=== PATIENT | male | born 1960 | race Caucasian/White ===

== ENCOUNTER 2017-09-18 11:22 | Day surgery (SDC) | payer BC, MEDICARE ==
[2017-09-13 12:09] VITALS: BMI 77.9
[~2017-09-18 11:22] MED LIST: LACTATED RINGERS 1,000 ML IV SCH
[2017-09-18 12:19] VITALS: RESP 16; TEMP 98.5
[2017-09-18] MEDS ORDERED: LIDOCAINE 1% 20 ML VIAL (10MG/ML) FOR IV START INTRADERMA ONE (12:45)
[2017-09-18] MEDS ORDERED: LIDOCAINE 1% INJ 10MG/ML (20 ML MDV) ONE (12:49)
[2017-09-18] MEDS ORDERED: PROPOFOL 10 MG/ML 20 ML VIAL IV ONE (12:49)
--- NOTE | 2017-09-18 12:52 | P.GSHP ---
History of Present Illness H&P Date: 09/18/17 Chief Complaint: Colon cancer screening Patient here today for colonoscopy. He is not aware of having 1 previously. His face sheet said that he had a history of colon polyps but he is unaware of that. No family history of colon cancer or polyps. No bowel related complaints. Past Medical History Past Medical History: Hypertension, Sleep Apnea/CPAP/BIPAP Additional Past Medical History / Comment(s): USES C-PAP MACHINE History of Any Multi-Drug Resistant Organisms: None Reported Past Surgical History: Hernia Repair Past Anesthesia/Blood Transfusion Reactions: Motion Sickness Smoking Status: Never smoker - Past Family History Mother Family Medical History: No Reported History Medications and Allergies Home Medications Medication Instructions Recorded Confirmed Type Aspirin [Adult Low Dose Aspirin EC] 81 mg PO DAILY 09/13/17 09/18/17 History Ergocalciferol (Vitamin D2) 50,000 unit PO MOWEFR 09/13/17 09/18/17 History [Vitamin D2] Hydrochlorothiazide 25 mg PO DAILY 09/13/17 09/18/17 History Lisinopril 40 mg PO DAILY 09/13/17 09/18/17 History Allergies Allergy/AdvReac Type Severity Reaction Status Date / Time No Known Allergies Allergy Verified 09/18/17 12:20 Surgical - Exam Vital Signs Temp Pulse Resp BP Pulse Ox 98.5 F 78 16 168/95 97 09/18/17 12:18 09/18/17 12:18 09/18/17 12:18 09/18/17 12:18 09/18/17 12:18 Physical exam: General: Well-developed, well-nourished HEENT: Normocephalic, sclerae nonicteric Abdomen: Nontender, nondistended Extremities: No edema Neuro: Alert and oriented Assessment and Plan (1) Screening for colon cancer Narrative/Plan: Will proceed with colonoscopy at this time. Current Visit: Yes Status: Acute Code(s): Z12.11 - ENCOUNTER FOR SCREENING FOR MALIGNANT NEOPLASM OF COLON SNOMED Code(s): 457722658
--- NOTE | 2017-09-18 13:05 | P.PCN ---
Date of Procedure: 09/18/17 Procedure(s) Performed: PREOPERATIVE DIAGNOSIS: Colon cancer screening POSTOPERATIVE DIAGNOSIS: Cecal polyp, diverticulosis PROCEDURE: Colonoscopy with biopsy ANESTHESIA: MAC SURGEON: Tommy Clarke M.D. SPECIMENS: Cecal polyp ENDOSCOPIC PROCEDURE: The patient was placed on the endoscopy table in the left decubitus position. The Olympus colonoscope was inserted into the anus and passed under direct visualization to the base of the cecum. The appendiceal orifice was visualized. From that point the scope was slowly withdrawn inspecting all surfaces carefully. On the cecal valve there was a small polyp removed using the cold biopsy forceps. The remainder of the cecum, ascending, transverse, descending, sigmoid and rectum appeared normal. There was mild diverticulosis noted in the sigmoid colon. Digital rectal examination was normal. The patient was taken to the recovery room in stable condition per anesthesia guidelines. RECOMMENDATIONS: Await biopsy results. Increase fiber.
[2017-09-18] MEDS ORDERED: IV FLUID CONTINUATION 1,000 ML IV ONE (13:10)
[2017-09-18 13:43] VITALS: BP 123/78; PULSE 81
== END 2017-09-18 13:44 | disposition home or self-care (01) ==
LOC: ORWHC2ENDO 11:22
PROVIDERS: ATTEND Surgery
DX: Z12.11 Encounter for screening for malignant neoplasm of colon (principal); K63.5 Polyp of colon; K57.30 Diverticulosis of large intestine without perforation or abscess without bleeding; Z86.010 Personal history of colon polyps; I10 Essential (primary) hypertension; G47.30 Sleep apnea, unspecified; Z99.89 Dependence on other enabling machines and devices; Z79.82 Long term (current) use of aspirin; Z79.899 Other long term (current) drug therapy
CPT/HCPCS: 45380; 88305

== ENCOUNTER → 2018-10-08 | Outpatient (CLI) | payer BC, MEDICARE ==
[2018-10-08 18:01] VITALS: BP 174/73; PULSE 74; RESP 16; TEMP 98.4; BMI 63.9
--- NOTE | 2018-10-08 18:15 | P.HPBAR ---
Bariatric H&P - History & Physicial H&P Date: 10/08/18 History & Physicial: Visit/CC: [facility]t referral for ry Patient initial contact: Initial weight: 196.405 kg Initial weight in pounds: 433.00 Height: 5 ft 9 in Initial BMI: 63.9 Last weight: Current weight: 196.405 kg Current weight in pounds: 433.00 Current BMI: 63.9 [place] body weight (based on NIH guidelines): 72.575 kg Excess body weight loss: 0.0% The patient is a 58 year-old M who presents for Bariatric Assessment. HPI: He comes in with moderate weight. Patient was looking into the sleeve gastrectomy. No reports of GERD. No stomach or esophageal cancer. His father accompanies him and has colon cancer. His last colonoscopy within in a year. No knee pain. He reports left hip pain. No lower back pain. No ankle pain. He has sleep apnea. His sisters and brothers have troubles with their weight. Highest weight is 440 pounds. He does not see a supervisor cured meats. No stress test. His brother had a pulmonary embolism. No previous smoking. Overall he is very healthy without diabetes. He has not seen an orthopedic surgeon. All options reviewed. Past Medical History Past Medical History: Hypertension, Sleep Apnea/CPAP/BIPAP Additional Past Medical History / Comment(s): USES C-PAP MACHINE History of Any Multi-Drug Resistant Organisms: None Reported Past Surgical History: Hernia Repair Past Anesthesia/Blood Transfusion Reactions: Motion Sickness Past Psychological History: No Psychological Hx Reported Smoking Status: Never smoker Past Alcohol Use History: Occasional Past Drug Use History: None Reported - Past Family History Mother Family Medical History: No Reported History Surgical - Exam Vital Signs Temp Pulse Resp BP 98.4 F 74 16 174/73 10/08/18 17:55 10/08/18 17:55 10/08/18 17:55 10/08/18 17:55 Bariatric Checklist Checklist: Plan: Checklist: EGD: 1. Hiatal hernia: 2. H. Pylori: HgbA1c: Vitamin D: Smoking: Never smoker Primary care physician referral: Dr. Elmo Garza Psychiatry clearance: Cardiology clearance: Sleep study: Diet journal: VTE risk score: VTE risk level: Rehab needs at discharge:
== END ==
LOC: BARWHC3 16:02
PROVIDERS: ATTEND Surgery Plastic and Reconstructive Surgery
DX: C18.9 Malignant neoplasm of colon, unspecified (principal); R63.5 Abnormal weight gain
CPT/HCPCS: 99211

== ENCOUNTER → 2018-11-04 | Outpatient (CLI) | payer MEDICARE ==
[2018-11-04 14:34] LABS: HCT 43.4 % (39.0-53.0); MCH 28.7 pg (25.0-35.0); MCHC 32.2 g/dL (31.0-37.0); MCV 89.1 fL (80.0-100.0); Mean Platelet Volume 7.4; Platelet Count 304 k/uL (150-450); RBC 4.87 m/uL (4.30-5.90); RDW 13.9 % (11.5-15.5); WBC 11.6 k/uL (3.8-10.6)
[2018-11-04 19:01] LABS: Albumin 4.3 g/dL (3.80-4.90); Albumin/Globulin Ratio 1.95 (1.60-3.17); Anion Gap 11.4 mmol/L (4.00-12.00); Calcium 9.6 mg/dL (8.7-10.3); Carbon Dioxide 23.6 mmol/L (21.6-31.8); Globulin 2.2 g/dL (1.6-3.3); LDL Cholesterol,Calculated 74.4 mg/dL (0.0-131.0); Potassium 4.7 mmol/L (3.5-5.5); Total Bilirubin 0.2 mg/dL (0.2-1.2); Total Protein 6.5 g/dL (6.2-8.2); VLDL Calculation 35.6 mg/dL (5.00-40.00)
[2018-11-04 19:03] LABS: Iron Saturation 13.87 (15.00-50.00)
[2018-11-04 19:11] LABS: Vitamin D 25 Hydroxy 79.2 ng/mL (30.0-100.0)
[2018-11-04 19:15] LABS: Folate, Serum 17.8 ng/mL
[2018-11-04 20:59] LABS: Hemoglobin A1C 6.1 % (4.0-6.0)
== END | disposition home or self-care (01) ==
LOC: LABWHC1 13:54
PROVIDERS: ATTEND Surgery Plastic and Reconstructive Surgery
DX: Z01.818 Encounter for other preprocedural examination (principal); E66.01 Morbid (severe) obesity due to excess calories; E88.81 Metabolic syndrome and other insulin resistance; E44.0 Moderate protein-calorie malnutrition; I11.9 Hypertensive heart disease without heart failure; G47.30 Sleep apnea, unspecified; Z68.43 Body mass index [BMI] 50.0-59.9, adult; Z01.812 Encounter for preprocedural laboratory examination
CPT/HCPCS: 36415; 80053; 80061; 82306; 82607; 82728; 82746; 83036; 83540; 83550; 84425; 84443; 85027; 93005

== ENCOUNTER 2018-11-10 10:28 | Day surgery (SDC) | payer MEDICARE ==
[2018-11-07 09:13] VITALS: BMI 60.8
--- NOTE | 2018-11-09 09:17 | P.GSHP ---
History of Present Illness H&P Date: 11/10/18 CHIEF COMPLAINT: GERD HISTORY OF PRESENT ILLNESS: The patient is a 58-year-old male who presents reports gastroesophageal reflux disease. Upper endoscopy was offered for further evaluation and management. PAST MEDICAL HISTORY: Please see list. PAST SURGICAL HISTORY: Please see list. MEDICATIONS: Please see list. ALLERGIES: Please see list. SOCIAL HISTORY: No illicit drug use FAMILY HISTORY: No reports of Crohn disease or ulcerative colitis. REVIEW OF ORGAN SYSTEMS: CONSTITUTIONAL: No reports of fevers or chills. GI: Denies any blood in stools or constipation. PHYSICAL EXAM: VITAL SIGNS: Stable GENERAL: Well-developed and pleasant in no acute distress. HEENT: No scleral icterus. Extraocular movements grossly intact. Moist buccal mucosa. NECK: Supple without lymphadenopathy. CHEST: Unlabored respirations. Equal bilateral excursions. CARDIOVASCULAR: Regular rate and rhythm. Distal 2+ pulses. ABDOMEN: Soft, nondistended. MUSCULOSKELETAL: No clubbing, cyanosis, or edema. ASSESSMENT: 1. Gastroesophageal reflux disease PLAN: 1. Recommend proceeding with an upper endoscopy Past Medical History Past Medical History: Hypertension, Sleep Apnea/CPAP/BIPAP Additional Past Medical History / Comment(s): USES C-PAP MACHINE History of Any Multi-Drug Resistant Organisms: None Reported Past Surgical History: Hernia Repair Past Anesthesia/Blood Transfusion Reactions: Motion Sickness Smoking Status: Never smoker - Past Family History Mother Family Medical History: No Reported History Medications and Allergies Home Medications Medication Instructions Recorded Confirmed Type Aspirin [Adult Low Dose Aspirin EC] 81 mg PO DAILY 09/13/17 11/07/18 History Ergocalciferol (Vitamin D2) 50,000 unit PO MOWEFR 09/13/17 11/07/18 History [Vitamin D2] Lisinopril 40 mg PO DAILY 09/13/17 11/07/18 History Allergies Allergy/AdvReac Type Severity Reaction Status Date / Time No Known Allergies Allergy Verified 11/07/18 09:11
[~2018-11-10 10:28] MED LIST changes: +LIDOCAINE 1% 20 ML VIAL (10MG/ML) FOR IV START INTRADERMA PRN
[2018-11-10 11:19] VITALS: RESP 16; TEMP 97.7
[2018-11-10] MEDS ORDERED: PROPOFOL 10 MG/ML 20 ML VIAL IV ONE (12:10)
[2018-11-10] MEDS ORDERED: LIDOCAINE 1% INJ 10MG/ML (20 ML MDV) ONE (12:10)
[2018-11-10] MEDS ORDERED: fentaNYL (PF) 50 MCG/ML 2 ML AMP ONE (12:10)
[2018-11-10] MEDS ORDERED: KETAMINE 10 MG/ML 20 ML VIAL ONE (12:10)
[2018-11-10] MEDS ORDERED: MIDAZOLAM 2 MG/2 ML VIAL ONE (12:10)
--- NOTE | 2018-11-10 12:28 | P.PCN ---
Date of Procedure: 11/10/18 Description of Procedure: PREOPERATIVE DIAGNOSIS: Gastroesophageal reflux disease. Morbid obesity due to excess calories, BMI 60.8 POSTOPERATIVE DIAGNOSIS: Gastroesophageal reflux disease. Morbid obesity due to excess calories, BMI 60.8 Gastritis, acute OPERATION: Esophagogastroduodenoscopy with biopsies along antrum. SURGEON: Breanne Bowers MD ANESTHESIA: MAC. INDICATIONS: The patient is a 58-year-old male who presents with a history of reflux disease. Benefits and risks of the procedure were described. Informed consent was obtained. DESCRIPTION: The patient was brought into the endoscopy suite and laid in the left lateral decubitus position. An Olympus gastroscope was passed along the posterior oropharynx down to the distal esophagus where the squamocolumnar junction was encountered at 43 cm from the incisors. The stomach was entered and no bile reflux was found. Additional findings are listed below. Biopsies with cold forceps were obtained of the antrum. The first through third portion of the duodenum was examined and unremarkable. Retroflexion of the scope confirmed Hill grade 3 lower esophageal valve. The squamocolumnar junction demonstrated LA grade A erosive esophagitis. The stomach was desufflated. The patient tolerated the procedure well. FINDINGS: Squamocolumnar junction 43 cm from the incisors. Diaphragmatic hiatus at 43 cm. Hill grade 3 lower esophageal valve. LA grade A erosive esophagitis. No active duodenitis. Acute gastritis with recent bleed RECOMMENDATIONS: Upper endoscopy as needed. Omeprazole for 2 weeks Plan - Discharge Summary Discharge Rx Participant: Yes New Discharge Prescriptions: New Omeprazole 40 mg PO DAILY #14 capsule. No Action Lisinopril 40 mg PO DAILY Ergocalciferol (Vitamin D2) [Vitamin D2] 50,000 unit PO MOWEFR Aspirin [Adult Low Dose Aspirin EC] 81 mg PO DAILY Multivitamins, Thera [Multivitamin (formulary)] 1 tab PO DAILY Discharge Medication List Aspirin [Adult Low Dose Aspirin EC] 81 mg PO DAILY 09/13/17 [History] Ergocalciferol (Vitamin D2) [Vitamin D2] 50,000 unit PO MOWEFR 09/13/17 [History] Lisinopril 40 mg PO DAILY 09/13/17 [History] Multivitamins, Thera [Multivitamin (formulary)] 1 tab PO DAILY 11/10/18 [History] Omeprazole 40 mg PO DAILY #14 capsule. 11/10/18 [Rx] Follow up Appointment(s)/Referral(s): [facility],. [NON-STAFF] - 12/10/18 Patient Instructions/Handouts: Gastritis (DC) Discharge Disposition: HOME SELF-CARE
[2018-11-10 12:48] VITALS: BP 131/72; PULSE 79
== END 2018-11-10 13:28 | disposition home or self-care (01) ==
LOC: ORWHC2ENDO 10:28
PROVIDERS: ATTEND Surgery Plastic and Reconstructive Surgery
DX: K21.0 Gastro-esophageal reflux disease with esophagitis (principal); K29.50 Unspecified chronic gastritis without bleeding; I10 Essential (primary) hypertension; G47.30 Sleep apnea, unspecified; Z99.89 Dependence on other enabling machines and devices; E66.01 Morbid (severe) obesity due to excess calories; Z68.44 Body mass index [BMI] 60.0-69.9, adult; Z79.82 Long term (current) use of aspirin; Z79.899 Other long term (current) drug therapy
CPT/HCPCS: 88305; 43239; J2250; J2001; J3010; J2704

== ENCOUNTER → 2018-12-10 | Outpatient (CLI) | payer MEDICARE ==
[2018-12-10 13:53] VITALS: BP 133/75; PULSE 82; RESP 16; TEMP 98.6; BMI 63.9
--- NOTE | 2018-12-10 14:34 | P.PN ---
Subjective Progress Note Date: 12/10/18 DATE OF SERVICE: 12/10/2018 CHIEF COMPLAINT: Morbid obesity HISTORY OF PRESENT ILLNESS: Bryan Ferrell is a 58-year-old male who comes with lifelong morbid obesity. He has easy bruising and gastritis. He has no difference in symptoms with Omeprazole. He ambulates with with a walker for severe hip and knee pain. As results of his morbid obesity, he has developed obstructive sleep apnea, severe osteoarthritis of the joints, hypertensive heart disease including new diagnosis of diabetes type 2. He is looking into the sleeve gastrectomy. He has family history of morbid obesity. Highest weight is 440 pounds. At height of 5 feet 9 inches, his ideal body weight is 168 pounds. His highest weight was 440 pounds, BMI 65.1. He comes in 432 pounds from 433 pounds in 2 months. He has lost 1 pound in 2 months. His body mass index is 64.1. He is 264 pounds overweight. PAST MEDICAL HISTORY: 1. Morbid obesity due to excess calories 2. Body mass index of 65.1, initial 3. Osteoarthritis of the left hip. 4. Osteoarthritis of the lower back. 5. Hypertensive heart disease. 6. Gastroesophageal reflux disease 7. Obstructive sleep apnea PAST SURGICAL HISTORY: 1. Colonoscopy 2. Hernia repair HOME MEDICATIONS: ALLERGIES: Medications and Allergies Home Medications Medication Instructions Recorded Confirmed Type Aspirin [Adult Low Dose Aspirin EC] 81 mg PO DAILY 09/13/17 11/10/18 History Ergocalciferol (Vitamin D2) 50,000 unit PO MOWEFR 09/13/17 11/10/18 History [Vitamin D2] Lisinopril 40 mg PO DAILY 09/13/17 11/10/18 History Multivitamins, Thera [Multivitamin 1 tab PO DAILY 11/10/18 11/10/18 History (formulary)] Omeprazole 40 mg PO DAILY #14 capsule. 11/10/18 Rx Allergies Allergy/AdvReac Type Severity Reaction Status Date / Time No Known Allergies Allergy Verified 11/07/18 09:11 SOCIAL HISTORY: No past tobacco use. FAMILY HISTORY: No family history of ulcerative colitis disease or Crohn's disease. Family history of morbid obesity. No lupus in the family. No reports of stomach or esophageal cancer. Father with colon cancer. Family history of pulmonary embolism in brother. REVIEW OF ORGAN SYSTEMS: CONSTITUTIONAL: At height of 5 feet 9 inches, her ideal body weight is 168 pounds. His highest weight was 440 pounds, BMI 65.1. His body mass index is 65.1. HEENT: Denies any active troubles with vision or hearing. ENDOCRINE: No diabetes. No hypothyroidism. CARDIOVASCULAR: No palpitations or heart attacks or chest pain. RESPIRATORY: Has daytime somnolence. No COPD. GASTROINTESTINAL: Denies any bright red blood per rectum. No diarrhea. No constipation. MUSCULOSKELETAL: Has lower back pain and joint pain. Has osteoarthritis of the hip. NEURO: No headaches. No seizure disorders. PSYCH: No depression. No suicidal ideation. RHEUMATOLOGIC: No lupus. No rheumatoid arthritis. HEMATOLOGIC: Denies any abnormal bleeding or bruising. No personal history of DVTs. SKIN: No rash. No skin cancer. PHYSICAL EXAM: VITAL SIGNS: Height 5 foot 9 inches, weight 432 pounds. BMI 63.9 Vital Signs Temp 98.6 F 12/10/18 13:48 Pulse 82 12/10/18 13:48 Resp 16 12/10/18 13:48 BP 133/75 12/10/18 13:48 Pulse Ox GENERAL: Well-developed in no acute distress. HEENT: No scleral icterus. Extraocular movements grossly intact. Hears conversational speech. No nasal drainage. NECK: Supple without lymphadenopathy. CHEST: Nonlabored respirations with equal bilateral excursions. CARDIOVASCULAR: Regular rate and regular rhythm. Distal 2+ pulses. ABDOMEN: Obese, soft, nontender, nondistended. MUSCULOSKELETAL: No clubbing, cyanosis. Gross strength 5/5 distal lower extremities. NEURO: No focal or lateralizing signs. Cranial nerves 2 through 12 grossly within normal limits. PSYCH: Appropriate affect. Alert and oriented to person, place and time. SKIN: Good skin turgor. Well perfused. EGD FINDINGS: Squamocolumnar junction 43 cm from the incisors. Diaphragmatic hiatus at 43 cm. Hill grade 3 lower esophageal valve. LA grade A erosive esophagitis. No active duodenitis. Acute gastritis with recent bleed Final Pathologic Diagnosis GASTRIC ANTRUM, BIOPSY: Mild chronic gastritis. Helicobacter organisms are not identified on routine H+E stained sections. LABS: WBC elevated 11,600 Hemoglobin A1C elevated 6.1 Iron is low 12-lead EKG is abnormal with inferior infarct ASSESSMENT: 1. Morbid obesity due to excess calories 2. Body mass index of 65.1, initial to 63.9 3. Osteoarthritis of the left hip. 4. Osteoarthritis of the lower back. 5. Hypertensive heart disease. 6. Gastroesophageal reflux disease 7. Obstructive sleep apnea 8. Abnormal EKG 9. Diabetes type 2, new 10. Iron deficiency anemia 11. Leukocytosis 12. Gastric ulcers PLAN: 1. His EKG is abnormal and will need manager operations and procurement including stress test. 2. Will need CPAP machine at home for sleep apnea. 3. Recommend referral to creel cleaner for sleep apnea. 4. He has history of bleeding ulcers and will need Omeprazole Objective - Vital Signs Vital signs: Vital Signs Temp 98.6 F 12/10/18 13:48 Pulse 82 12/10/18 13:48 Resp 16 12/10/18 13:48 BP 133/75 12/10/18 13:48 Pulse Ox Intake & Output 12/09/18 12/10/18 12/10/18 18:59 06:59 18:59 Weight 196.405 kg
== END | disposition home or self-care (01) ==
LOC: BARWHC3 13:34
PROVIDERS: ATTEND Surgery Plastic and Reconstructive Surgery
DX: E66.01 Morbid (severe) obesity due to excess calories (principal); M16.12 Unilateral primary osteoarthritis, left hip; I11.9 Hypertensive heart disease without heart failure; K21.9 Gastro-esophageal reflux disease without esophagitis; G47.33 Obstructive sleep apnea (adult) (pediatric); D50.9 Iron deficiency anemia, unspecified; D72.829 Elevated white blood cell count, unspecified; K25.9 Gastric ulcer, unspecified as acute or chronic, without hemorrhage or perforation; E11.9 Type 2 diabetes mellitus without complications; R94.31 Abnormal electrocardiogram [ECG] [EKG]; Z68.44 Body mass index [BMI] 60.0-69.9, adult; Z79.899 Other long term (current) drug therapy; Z79.82 Long term (current) use of aspirin
CPT/HCPCS: 99211

== ENCOUNTER 2019-02-05 12:58 | Day surgery (SDC) | payer MEDICARE ==
[2019-02-02 08:54] VITALS: BMI 71.6
--- NOTE | 2019-02-05 11:10 | P.GSHP ---
History of Present Illness H&P Date: 02/05/19 CHIEF COMPLAINT: Painful lesions along the right upper thigh HISTORY OF PRESENT ILLNESS: The patient is a 58 year-old male with history of lipomas of the right upper thigh painful lesion. He presents today for surgical excision. PAST MEDICAL HISTORY: Please see list. PAST SURGICAL HISTORY: Please see list. MEDICATIONS: Please see list. ALLERGIES: Please see list. SOCIAL HISTORY: No illicit drug use FAMILY HISTORY: No reports of Crohn disease or ulcerative colitis. REVIEW OF ORGAN SYSTEMS: CONSTITUTIONAL: No reports of fevers or chills. GI: Denies any blood in stools or constipation. PHYSICAL EXAM: VITAL SIGNS: Stable Musculoskeletal: Approximately 5 cm mass along the right upper thigh SKIN: Lesion identified along bilateral thighs. GENERAL: Well developed and in no acute distress. Pleasant. HEENT: No sclera icterus. Extraocular movements grossly intact. Moist buccal mucosa. Head is atraumatic, normocephalic. Hears conversational speech. No nasal drainage. NECK: Supple without lymphadenopathy. No JV distention. CHEST: Non-labored respirations and equal bilateral excursions. CARDIOVASCULAR: Regular rate and rhythm. Palpable 2+ radial pulses. ABDOMEN: Soft. Non-tender. Nondistended. NEUROLOGIC: No focal or lateralizing signs. PSYCH: Appropriate affect. Alert and oriented to person, place and time. ASSESSMENT: 1. Lipomas by some in the right upper thigh PLAN: 1. Will proceed of excision of subcutaneous tumors along the right upper thigh 2. DVT prophylaxis. 3. Antibiotic prophylaxis. 4. Time of recovery, at least one week. Past Medical History Past Medical History: GERD/Reflux, Hypertension, Sleep Apnea/CPAP/BIPAP Additional Past Medical History / Comment(s): USES C-PAP MACHINE History of Any Multi-Drug Resistant Organisms: None Reported Past Surgical History: Hernia Repair Past Anesthesia/Blood Transfusion Reactions: Motion Sickness Smoking Status: Never smoker - Past Family History Mother Family Medical History: No Reported History Medications and Allergies Home Medications Medication Instructions Recorded Confirmed Type Aspirin [Adult Low Dose Aspirin EC] 81 mg PO DAILY 09/13/17 02/02/19 History Lisinopril 40 mg PO DAILY 09/13/17 02/02/19 History Multivitamins, Thera [Multivitamin 1 tab PO DAILY 11/10/18 02/02/19 History (formulary)] Omeprazole 40 mg PO DAILY #14 capsule. 11/10/18 02/02/19 Rx Allergies Allergy/AdvReac Type Severity Reaction Status Date / Time No Known Allergies Allergy Verified 02/02/19 08:54
[~2019-02-05 12:58] MED LIST changes: +DEXAMETHASONE SOD PHOSPHATE 10 MG/ML 1 ML VIAL IV ONE; +HYDROmorphone 0.5 MG/0.5 ML SYRINGE IVP PRN; +MIDAZOLAM 2 MG/2 ML VIAL IV PRN; +ONDANSETRON 4 MG/2 ML VIAL IVP ONE; +Pre Op ABX Message 1 EACH MISC MISCELLANE ONE; +SCOPOLAMINE 1.5MG/72HR PATCH TRANSDERM ONE; +ceFAZolin 3 GM in SODIUM CHLORIDE 0.9% 100 ML IVPB ONE
[2019-02-05 13:39] VITALS: BP 144/92; PULSE 101; RESP 17; TEMP 97.2
[2019-02-05 13:53] LABS: Basophils # (A) 0.1 k/uL (0-0.2); Basophils % (A) 1 %; Eosinophils # (A) 0.5 k/uL (0-0.7); Eosinophils % (A) 4 %; HGB 15.1 gm/dL (13.0-17.5); Lymphocytes # (A) 2.5 k/uL (1.0-4.8); Lymphocytes % (A) 18 %; MCH 28.2 pg (25.0-35.0); MCHC 32.1 g/dL (31.0-37.0); MCV 87.7 fL (80.0-100.0); Mean Platelet Volume 7.2; Monocytes # (A) 1.1 k/uL (0-1.0); Monocytes % (A) 8 %; Neutrophils # (A) 9.4 k/uL (1.3-7.7); Neutrophils % (A) 67 %; Platelet Count 381 k/uL (150-450); RBC 5.36 m/uL (4.30-5.90); RDW 13.3 % (11.5-15.5); WBC 14.1 k/uL (3.8-10.6)
--- NOTE | 2019-02-05 15:10 | P.HPADDEND ---
H&P Addendum H&P Addendum Date: 02/05/19 Case canceled. Patient had a large breakfast despite being told nothing by mouth after midnight. Patient extremely high risk for procedure as he will be in prone versus left lateral decubitus position. Not enough time to empty the stomach especially with history of diabetes type 2. Case will be rescheduled
== END 2019-02-05 15:12 | disposition home or self-care (01) ==
LOC: OR 12:58
PROVIDERS: ATTEND Surgery Plastic and Reconstructive Surgery
DX: D17.23 Benign lipomatous neoplasm of skin and subcutaneous tissue of right leg (principal); Z53.8 Procedure and treatment not carried out for other reasons; G47.30 Sleep apnea, unspecified; Z99.89 Dependence on other enabling machines and devices; Z79.82 Long term (current) use of aspirin; Z79.899 Other long term (current) drug therapy; E11.9 Type 2 diabetes mellitus without complications
CPT/HCPCS: 85025; J1100; J2405

== ENCOUNTER 2019-02-06 09:26 | Day surgery (SDC) | payer MEDICARE ==
--- NOTE | 2019-02-06 07:59 | P.GSHP ---
History of Present Illness H&P Date: 02/06/19 CHIEF COMPLAINT: Painful lesions along the right upper thigh HISTORY OF PRESENT ILLNESS: The patient is a 58 year-old male with history of lipomas of the right upper thigh painful lesion. He presents today for surgical excision. PAST MEDICAL HISTORY: Please see list. PAST SURGICAL HISTORY: Please see list. MEDICATIONS: Please see list. ALLERGIES: Please see list. SOCIAL HISTORY: No illicit drug use FAMILY HISTORY: No reports of Crohn disease or ulcerative colitis. REVIEW OF ORGAN SYSTEMS: CONSTITUTIONAL: No reports of fevers or chills. GI: Denies any blood in stools or constipation. PHYSICAL EXAM: VITAL SIGNS: Stable Musculoskeletal: Approximately 5 cm mass along the right upper thigh SKIN: Lesion identified along bilateral thighs. GENERAL: Well developed and in no acute distress. Pleasant. HEENT: No sclera icterus. Extraocular movements grossly intact. Moist buccal mucosa. Head is atraumatic, normocephalic. Hears conversational speech. No nasal drainage. NECK: Supple without lymphadenopathy. No JV distention. CHEST: Non-labored respirations and equal bilateral excursions. CARDIOVASCULAR: Regular rate and rhythm. Palpable 2+ radial pulses. ABDOMEN: Soft. Non-tender. Nondistended. NEUROLOGIC: No focal or lateralizing signs. PSYCH: Appropriate affect. Alert and oriented to person, place and time. ASSESSMENT: 1. Lipomas by some in the right upper thigh PLAN: 1. Will proceed of excision of subcutaneous tumors along the right upper thigh 2. DVT prophylaxis. 3. Antibiotic prophylaxis. 4. Time of recovery, at least one week. Past Medical History Past Medical History: GERD/Reflux, Hypertension, Sleep Apnea/CPAP/BIPAP Additional Past Medical History / Comment(s): USES C-PAP MACHINE History of Any Multi-Drug Resistant Organisms: None Reported Past Surgical History: Hernia Repair Past Anesthesia/Blood Transfusion Reactions: Motion Sickness Smoking Status: Never smoker - Past Family History Mother Family Medical History: No Reported History Medications and Allergies Home Medications Medication Instructions Recorded Confirmed Type Aspirin [Adult Low Dose Aspirin EC] 81 mg PO DAILY 09/13/17 02/02/19 History Lisinopril 40 mg PO DAILY 09/13/17 02/02/19 History Multivitamins, Thera [Multivitamin 1 tab PO DAILY 11/10/18 02/02/19 History (formulary)] Omeprazole 40 mg PO DAILY #14 capsule. 11/10/18 02/02/19 Rx Allergies Allergy/AdvReac Type Severity Reaction Status Date / Time No Known Allergies Allergy Verified 02/05/19 13:18
[~2019-02-06 09:26] MED LIST changes: -DEXAMETHASONE SOD PHOSPHATE 10 MG/ML 1 ML VIAL IV ONE; -HYDROmorphone 0.5 MG/0.5 ML SYRINGE IVP PRN; -LACTATED RINGERS 1,000 ML IV SCH; -LIDOCAINE 1% 20 ML VIAL (10MG/ML) FOR IV START INTRADERMA PRN; -MIDAZOLAM 2 MG/2 ML VIAL IV PRN; -ONDANSETRON 4 MG/2 ML VIAL IVP ONE; -Pre Op ABX Message 1 EACH MISC MISCELLANE ONE; -SCOPOLAMINE 1.5MG/72HR PATCH TRANSDERM ONE
[2019-02-06] MEDS ORDERED: METOCLOPRAMIDE 5 MG/ML 2 ML VIAL IVP PRN (09:59)
[2019-02-06] MEDS ORDERED: ONDANSETRON 4 MG/2 ML VIAL IVP PRN (09:59)
[2019-02-06] MEDS ORDERED: LACTATED RINGERS 1,000 ML IV SCH (10:00)
[2019-02-06] MEDS ORDERED: LIDOCAINE 1% 20 ML VIAL (10MG/ML) FOR IV START INTRADERMA ONE (10:07)
[2019-02-06 10:08] LABS: Glucose,Whole Blood 102 mg/dL (75-99)
[2019-02-06] MEDS ORDERED: HEPARIN SODIUM,PORCINE 5,000 UNIT/ML 1 ML VIAL SQ ONE ×2 (11:24→11:25)
[2019-02-06] MEDS ORDERED: MIDAZOLAM 2 MG/2 ML VIAL ONE (11:26)
[2019-02-06] MEDS ORDERED: fentaNYL (PF) 50 MCG/ML 2 ML AMP ONE (11:26)
[2019-02-06] MEDS ORDERED: PROPOFOL 10 MG/ML 20 ML VIAL IV ONE (11:26)
[2019-02-06] MEDS ORDERED: LIDOCAINE 1% INJ 10MG/ML (20 ML MDV) ONE (11:26)
[2019-02-06] MEDS ORDERED: ROCURONIUM BROMIDE 10 MG/ML 10 ML VIAL IV ONE (11:26)
[2019-02-06] MEDS ORDERED: SUCCINYLCHOLINE CHLORIDE VIAL 200 MG/10 ML VIAL IV ONE (11:26)
[2019-02-06] MEDS ORDERED: NEOSTIGMINE 1 MG/ML 10 ML VIAL ONE (11:26)
[2019-02-06] MEDS ORDERED: GLYCOPYRROLATE 0.2 MG/ML 2 ML VIAL ONE (11:26)
[2019-02-06] MEDS ORDERED: KETOROLAC 30 MG/ML 1 ML VIAL IVP SCH (12:00)
[2019-02-06] MEDS ORDERED: LIDOCAINE 0.5%-EPI 1:200,000 50 ML VIAL SQ ONE (12:18)
[2019-02-06] MEDS ORDERED: LACTATED RINGERS 1,000 ML IV ONE (12:44)
[2019-02-06] MEDS: HYDROmorphone 0.5 MG/0.5 ML SYRINGE IVP PRN ×3 (13:07→13:20)
[2019-02-06 13:10] VITALS: TEMP 98
--- NOTE | 2019-02-06 13:10 | P.OP ---
Date of Procedure: 02/06/19 Description of Procedure: Date of Procedure: 02/06/19 SURGEON: BING MERRILL MD SEED SERVICE ADVISOR: NONE. PREOPERATIVE DIAGNOSES: 1. Chronic right upper posterior thigh mass with ulceration 2. Super morbid obesity, BMI over 70 3. Diabetes type 2 with diabetic neuropathy 4. Hypertensive heart disease 5. Obstructive sleep apnea POSTOPERATIVE DIAGNOSES: 1. Chronic right upper posterior thigh mass with ulceration, 8 x 5 cm deep subcutaneous tissue 2. Super morbid obesity, BMI over 70 3. Diabetes type 2 with diabetic neuropathy 4. Hypertensive heart disease 5. Obstructive sleep apnea OPERATION: 1. Excision of large right posterior thigh mass 8 x 5 cm deep subcutaneous tissue chronic ulcer and tumor 2. Intermediate closure of right posterior thigh mass, 8-cm 3. Application of PREVENA 13-cm wound vac COMPLICATIONS: None. Anesthesia: GETA, local Estimated Blood Loss (ml): 50 Pathology: other (Posterior thigh mass, right side, long superior short lateral) Condition: stable Disposition: same day Operative Findings: 1. Chronic ulceration of medial posterior right upper thigh mass excised to deep subcutaneous tissue 8 x 5 cm 2. Application of negative wound VAC therapy INDICATIONS: The patient is a 58-year-old male who presents with right upper thigh subcutaneous tumor. Surgical options, including excision was discussed. Benefits and risks were described. Informed consent was obtained. DESCRIPTION OF PROCEDURE: Patient was brought into the operating room, laid in left lateral decubitus position. After general, the right upper leg was prepped and draped in standard sterile fashion using ChloraPrep. A timeout protocol was confirmed with the surgical team regarding patient's name including procedures to be performed. Preoperative medications was administered. Next, a local field block was administered. The right upper thigh mass was measured using a ruler with borders marked with indelible marker. An elliptical incision of 8 x 5 cm in size into the dermis followed by circumferential dissection using electro-Bovie cautery into the deep subcutaneous tissue. Hemostasis was checked with electrocautery cautery. The wound was closed in multiple layers including 0 Vicryl for the deep subcutaneous tissue. Surgical angy were placed. The skin was cleansed. PREVENA 13-cm dressing was placed. At the end of the procedure, needle, sponge, and instrument count had been verified correct by the surgical coordinator. The patient was taken to the postanesthesia care unit in stable condition. Plan - Discharge Summary Discharge Rx Participant: Yes New Discharge Prescriptions: New Ibuprofen [Motrin] 600 mg PO Q8HR PRN #30 tab PRN Reason: Pain No Action Lisinopril 40 mg PO DAILY Aspirin [Adult Low Dose Aspirin EC] 81 mg PO DAILY Multivitamins, Thera [Multivitamin (formulary)] 1 tab PO DAILY Omeprazole 40 mg PO DAILY #14 capsule. Discharge Medication List Aspirin [Adult Low Dose Aspirin EC] 81 mg PO DAILY 09/13/17 [History] Lisinopril 40 mg PO DAILY 09/13/17 [History] Multivitamins, Thera [Multivitamin (formulary)] 1 tab PO DAILY 11/10/18 [History] Omeprazole 40 mg PO DAILY #14 capsule. 11/10/18 [Rx] Ibuprofen [Motrin] 600 mg PO Q8HR PRN #30 tab 02/06/19 [Rx] Follow up Appointment(s)/Referral(s): [facility],. [NON-STAFF] - 02/11/19 3:20 pm Patient Instructions/Handouts: Negative Pressure Wound Therapy (DC), Acute Wounds (ED) Activity/Diet/Wound Care/Special Instructions: Please keep dressing completely dry. Do not get dressings wet. Notify our office if dressing comes off. Discharge Disposition: HOME SELF-CARE
[2019-02-06 13:40] LABS: Glucose,Whole Blood 115 mg/dL (75-99)
[2019-02-06 14:00] VITALS: RESP 16
[2019-02-06 14:20] VITALS: BP 142/69; PULSE 66
== END 2019-02-06 15:17 | disposition home or self-care (01) ==
LOC: OR 09:26
PROVIDERS: ATTEND Surgery Plastic and Reconstructive Surgery
DX: D18.01 Hemangioma of skin and subcutaneous tissue (principal); E11.40 Type 2 diabetes mellitus with diabetic neuropathy, unspecified; E66.01 Morbid (severe) obesity due to excess calories; Z68.45 Body mass index [BMI] 70 or greater, adult; G47.33 Obstructive sleep apnea (adult) (pediatric); I11.9 Hypertensive heart disease without heart failure; Z79.82 Long term (current) use of aspirin; Z99.89 Dependence on other enabling machines and devices; Z79.899 Other long term (current) drug therapy
CPT/HCPCS: 88305; 87070; 87205; 87075; 87102; 11406; 13121; J2250; J0330; J1644; J2710; J2765; J0690; J2405; J2001; J3010; J2704; J1170

== ENCOUNTER → 2019-02-11 | Outpatient (CLI) | payer MEDICARE ==
[2019-02-11 15:52] VITALS: BP 160/87; PULSE 88; TEMP 98.1; BMI 62.1
--- NOTE | 2019-02-11 16:45 | P.PN ---
Subjective Progress Note Date: 02/11/19 Dressing from right thigh removed and changed. May shower. Needs maxi pad. Also, MUST FOLLOW WEIGHT LOSS DIET POST SLEEVE as he has multiple risks including memory impairment. Will need father and/or gaurdian present at all times. Must work with dietitian with follow up next week. Objective - Vital Signs Vital signs: Vital Signs Temp 98.1 F 02/11/19 15:45 Pulse 88 02/11/19 15:45 Resp BP 160/87 02/11/19 15:45 Pulse Ox Intake & Output 02/10/19 02/11/19 02/11/19 18:59 06:59 18:59 Weight 190.826 kg
== END | disposition home or self-care (01) ==
LOC: BARWHC3 14:54
PROVIDERS: ATTEND Surgery Plastic and Reconstructive Surgery
DX: Z48.815 Encounter for surgical aftercare following surgery on the digestive system (principal); Z98.84 Bariatric surgery status

== ENCOUNTER 2019-02-21 13:20 | Inpatient (IN) | payer MEDICARE ==
[2019-02-21] MEDS ORDERED: KETOROLAC 30 MG/ML 1 ML VIAL IM STA (14:17)
--- NOTE | 2019-02-21 14:39 | P.GSHP ---
History of Present Illness H&P Date: 02/21/19 DATE OF SERVICE: 02/21/2019 CHIEF COMPLAINT: Cellulitis of right thigh HISTORY OF PRESENT ILLNESS: Bryan Ferrell is a 58-year-old male status post excision of hemangioma along the right inner thigh. He was last seen in the bariatric center over 2 weeks ago. He had been noncompliant with his care and was asked to be seen at the bariatric center within the last week. He presents with re-open of his wound. He has baseline history of leukocytosis for the last 3 weeks prior to his most recent surgery. He comes in with increased pain and discomfort of his right upper thigh. He has recent diagnosis of diabetes untreated. He now presents with cellulitis of his thigh. He also has been placed on high protein diet. At height of 5 feet 9 inches, his ideal body weight is 168 pounds. His highest weight was 440 pounds, BMI 65.1. He comes in 439 pounds with weight gain from 433 pounds 4 months ago. His body mass index is 64.1. He is 271 pounds overweight. PAST MEDICAL HISTORY: 1. Morbid obesity due to excess calories 2. Body mass index of 65.1, initial 3. Osteoarthritis of the left hip. 4. Osteoarthritis of the lower back. 5. Hypertensive heart disease. 6. Gastroesophageal reflux disease 7. Obstructive sleep apnea 8. Diabetes type II, controlled PAST SURGICAL HISTORY: 1. Colonoscopy 2. Hernia repair 3. Excision of right inner thigh lesion, hemangioma HOME MEDICATIONS: See list ALLERGIES: See list SOCIAL HISTORY: No active tobacco use. FAMILY HISTORY: No family history of ulcerative colitis disease or Crohn's disease. Family history of morbid obesity. No lupus in the family. No reports of stomach or esophageal cancer. REVIEW OF ORGAN SYSTEMS: CONSTITUTIONAL: At height of 5 feet 9 inches, her ideal body weight is 168 pounds. His highest weight was 440 pounds, BMI 65.1. HEENT: Denies any active troubles with vision or hearing. ENDOCRINE: No diabetes. No hypothyroidism. CARDIOVASCULAR: No palpitations or heart attacks or chest pain. RESPIRATORY: Has daytime somnolence. No COPD. Has obstructive sleep apnea. GASTROINTESTINAL: Denies any bright red blood per rectum. No diarrhea. No constipation. MUSCULOSKELETAL: Has lower back pain and joint pain. Has osteoarthritis of the hip. NEURO: No headaches. No seizure disorders. Past history of multiple head injuries with memory impairment PSYCH: No depression. No suicidal ideation. RHEUMATOLOGIC: No lupus. No rheumatoid arthritis. HEMATOLOGIC: Denies any abnormal bleeding or bruising. No personal history of DVTs. SKIN: No rash. No skin cancer. PHYSICAL EXAM: VITAL SIGNS: Height 5 foot 9 inches, weight 439 pounds. BMI 65.0 Vital Signs Temp 98.4 F 02/21/19 19:43 Pulse 76 02/21/19 19:43 Resp 19 02/21/19 19:43 BP 128/78 02/21/19 19:43 Pulse Ox 96 02/21/19 19:43 Intake & Output 02/21/19 02/21/19 02/22/19 06:59 18:59 06:59 Intake Total 480 Balance 480 Weight 199.581 kg Intake: Oral 480 GENERAL: Well-developed in no acute distress. HEENT: No scleral icterus. Extraocular movements grossly intact. Hears c onversational speech. No nasal drainage. NECK: Supple without lymphadenopathy. CHEST: Nonlabored respirations with equal bilateral excursions. CARDIOVASCULAR: Regular rate and regular rhythm. Distal 2+ pulses. ABDOMEN: Obese, soft, nontender, nondistended. MUSCULOSKELETAL: No clubbing, cyanosis. Gross strength 5/5 distal lower extremities. NEURO: No focal or lateralizing signs. Cranial nerves 2 through 12 grossly within normal limits. PSYCH: Appropriate affect. Alert and oriented to person, place and time. SKIN: Good skin turgor. Well perfused. Right upper thigh complex wound 8 x 5 cm with edema of the wound. Non-malodorous. ASSESSMENT: 1. Complex right upper thigh complex wound 8 x 5 cm with cellulitis 2. Leukocytosis. 3. Medical nonc-compliance to post-surgical care 4. Morbid obesity due to excess calories 5. Body mass index of 65.1 6. Osteoarthritis of the left hip. 7. Osteoarthritis of the lower back. 8. Hypertensive heart disease. 9. Gastroesophageal reflux disease 10. Obstructive sleep apnea 11. Diabetes type 2, diet controlled PLAN: 1. Patient was non-compliant with post-op surgical care developed cellulitis. 2. Recommend admission for cellulitis and leukocytosis. 3. Will need IV antibiotics. 4. Local wound care and possible debridement. 5. Will need home health care for complicated wound Past Medical History Past Medical History: GERD/Reflux, Hypertension, Sleep Apnea/CPAP/BIPAP Additional Past Medical History / Comment(s): USES C-PAP MACHINE History of Any Multi-Drug Resistant Organisms: None Reported Past Surgical History: Hernia Repair Additional Past Surgical History / Comment(s): 02/05/19: Right leg ulcer/abcess removed by Dr. Bowers Past Anesthesia/Blood Transfusion Reactions: Motion Sickness Past Psychological History: No Psychological Hx Reported Smoking Status: Never smoker Past Alcohol Use History: Rare Past Drug Use History: None Reported - Past Family History Mother Family Medical History: No Reported History Medications and Allergies Home Medications Medication Instructions Recorded Confirmed Type Aspirin [Adult Low Dose Aspirin EC] 81 mg PO DAILY 09/13/17 02/21/19 History Lisinopril 40 mg PO DAILY 09/13/17 02/21/19 History Multivitamins, Thera [Multivitamin 1 tab PO DAILY 11/10/18 02/21/19 History (formulary)] Omeprazole 40 mg PO DAILY #14 capsule. 11/10/18 02/21/19 Rx Ibuprofen [Motrin] 600 mg PO Q8HR PRN #30 tab 02/06/19 02/21/19 Rx Allergies Allergy/AdvReac Type Severity Reaction Status Date / Time No Known Allergies Allergy Verified 02/21/19 15:17 Surgical - Exam Vital Signs Temp Pulse Resp BP Pulse Ox 98 F 101 H 18 101/67 98 02/21/19 13:30 02/21/19 13:30 02/21/19 13:30 02/21/19 13:30 02/21/19 13:30 Results - Labs 02/21/19 14:58 02/21/19 14:58 Assessment and Plan (1) Cellulitis of right thigh Current Visit: Yes Status: Acute Code(s): L03.115 - CELLULITIS OF RIGHT LOWER LIMB SNOMED Code(s): 85731192381415935 (2) Noncompliance of patient with dietary regimen Current Visit: Yes Status: Acute Code(s): Z91.11 - PATIENT'S NONCOMPLIANCE WITH DIETARY REGIMEN SNOMED Code(s): 688958238 (3) Leukocytosis (leucocytosis) Current Visit: Yes Status: Acute Code(s): D72.829 - ELEVATED WHITE BLOOD CELL COUNT, UNSPECIFIED SNOMED Code(s): 608320299 (4) Obstructive sleep apnea (adult) (pediatric) Current Visit: Yes Status: Acute Code(s): G47.33 - OBSTRUCTIVE SLEEP APNEA ( ADULT) (PEDIATRIC) SNOMED Code(s): 72495538 (5) Diabetes type 2, controlled Current Visit: Yes Status: Acute Code(s): E11.9 - TYPE 2 DIABETES MELLITUS WITHOUT COMPLICATIONS SNOMED Code(s): 61602443 (6) Morbid obesity due to excess calories Current Visit: Yes Status: Acute Code(s): E66.01 - MORBID (SEVERE) OBESITY DUE TO EXCESS CALORIES SNOMED Code(s): 856610021 (7) BMI 60.0-69.9, adult Current Visit: Yes Status: Acute Code(s): Z68.44 - BODY MASS INDEX (BMI) 60.0-69.9, ADULT SNOMED Code(s): 957752231 (8) Hypertensive heart disease Current Visit: Yes Status: Acute Code(s): I11.9 - HYPERTENSIVE HEART DISEASE WITHOUT HEART FAILURE SNOMED Code(s): 17136345
[2019-02-21] MEDS ORDERED: KETOROLAC 30 MG/ML 1 ML VIAL IVP PRN (14:40)
[2019-02-21] MEDS ORDERED: MORPHINE SULFATE 4 MG/ML SYRINGE IV PRN (14:40)
[2019-02-21] MEDS ORDERED: NALOXONE 0.4 MG/ML 1 ML VIAL IV PRN (14:40)
[2019-02-21] MEDS ORDERED: ACETAMINOPHEN TAB 325 MG TAB PO PRN (14:40)
[2019-02-21] MEDS ORDERED: ONDANSETRON 4 MG/2 ML VIAL IVP PRN (14:40)
[2019-02-21] MEDS ORDERED: KETOROLAC 30 MG/ML 1 ML VIAL IVP STA (14:41)
--- NOTE | 2019-02-21 15:04 | ED ---
General Adult HPI - General Chief complaint: Wound/Laceration Stated complaint: Wound Time Seen by Provider: 02/21/19 14:04 Source: patient Mode of arrival: ambulatory Limitations: no limitations - History of Present Illness Initial comments: Patient is a 58-year-old female presented emergency department with a chief complaint of angy coming out of a wound. Patient had a procedure on an ulcerated abscess on the posterior aspect of his right upper thigh on February 12. Patient reports few days ago he noticed the angy fell out. Patient reports o n the bloody discharge but no pus. Patient reports the wound is painful and he has difficulty time ambulating. Patient denies fevers, night sweats, chills, nausea or vomiting. Patient reports he contacted Dr. Rodriguez who performed the procedure. Patient denies taking any medication to alleviate the symptoms. - Related Data Home Medications Medication Instructions Recorded Confirmed Aspirin [Adult Low Dose Aspirin EC] 81 mg PO DAILY 09/13/17 02/11/19 Lisinopril 40 mg PO DAILY 09/13/17 02/11/19 Multivitamins, Thera [Multivitamin 1 tab PO DAILY 11/10/18 02/11/19 (formulary)] Previous Rx's Medication Instructions Recorded Omeprazole 40 mg PO DAILY #14 capsule. 11/10/18 Ibuprofen [Motrin] 600 mg PO Q8HR PRN #30 tab 02/06/19 Allergies Allergy/AdvReac Type Severity Reaction Status Date / Time No Known Allergies Allergy Verified 02/21/19 13:30 Review of Systems ROS Statement: Those systems with pertinent positive or pertinent negative responses have been documented in the HPI. ROS Other: All systems not noted in ROS Statement are negative. Past Medical History Past Medical History: GERD/Reflux, Hypertension, Sleep Apnea/CPAP/BIPAP Additional Past Medical History / Comment(s): USES C-PAP MACHINE History of Any Multi-Drug Resistant Organisms: None Reported Past Surgical History: Hernia Repair Additional Past Surgical History / Comment(s): 02/05/19: Right leg ulcer/abcess removed by Dr. Bowers Past Anesthesia/Blood Transfusion Reactions: Motion Sickness Past Psychological History: No Psychological Hx Reported Smoking Status: Never smoker Past Alcohol Use History: Rare Past Drug Use History: None Reported - Past Family History Mother Family Medical History: No Reported History General Exam Limitations: no limitations General appearance: alert, in no apparent distress, obese (Morbidly) Head exam: Present: atraumatic, normocephalic, normal inspection Eye exam: Present: normal appearance, PERRL, EOMI Pupils: Present: normal accommodation ENT exam: Present: normal exam, mucous membranes moist, normal external ear exam Neck exam: Present: normal inspection Respiratory exam: Present: normal lung sounds bilaterally Cardiovascular Exam: Present: regular rate, normal rhythm, normal heart sounds Extremities exam: Present: normal inspection, other (Ulceration measuring approximately 2 cm x 4 cm on the posterior aspect of the right upper thigh. Multiple angy not in place. No cellulitis noted. No discharge noted) Back exam: Present: normal inspection Neurological exam: Present: alert, oriented X3 Psychiatric exam: Present: normal affect, normal mood Skin exam: Present: warm, intact, normal color Course Vital Signs 02/21/19 13:30 Temperature 98 F Pulse Rate 101 H Respiratory 18 Rate Blood Pressure 101/67 O2 Sat by Pulse 98 Oximetry Medical Decision Making - Medical Decision Making Patient is a 58-year-old male presenting to emergency Department with a chief complaint of angy falling out of the wound. Patient's vitals are stable. Dr. Bowers was contacted and she examined the patient. She decided patient will be admitted for further medical management. Basic labs were obtained. Patient given toradol for pain. Case discussed with Dr. Romo. Admitting physician is Dr. Austin. Disposition Clinical Impression: Cellulitis and abscess of buttock Disposition: ADMITTED IP TO THIS [facility] Condition: Stable Instructions (If sedation given, give patient instructions): Abscess Incision and Drainage (ED) Additional Instructions: Patient will be admitted. Is patient prescribed a controlled substance at d/c from ED?: No Referrals: Elmo Cantor MD [Primary Care Provider] - 1-2 days Time of Disposition: 15:04
[2019-02-21] MEDS: SODIUM CHLORIDE 0.9% 1,000 ML IV SCH (15:11)
[2019-02-21 15:21] LABS: Basophils # (A) 0.1 k/uL (0-0.2); Basophils % (A) 1 %; Eosinophils # (A) 0.4 k/uL (0-0.7); Eosinophils % (A) 2 %; HCT 45.6 % (39.0-53.0); HGB 14.9 gm/dL (13.0-17.5); Lymphocytes # (A) 1.5 k/uL (1.0-4.8); Lymphocytes % (A) 8 %; MCH 28.2 pg (25.0-35.0); MCHC 32.6 g/dL (31.0-37.0); MCV 86.4 fL (80.0-100.0); Mean Platelet Volume 7.6; Monocytes # (A) 0.9 k/uL (0-1.0); Monocytes % (A) 5 %; Neutrophils # (A) 15.6 k/uL (1.3-7.7); Neutrophils % (A) 84 %; Platelet Count 350 k/uL (150-450); RBC 5.27 m/uL (4.30-5.90); RDW 13.6 % (11.5-15.5); WBC 18.6 k/uL (3.8-10.6)
[2019-02-21 15:30] LABS: Albumin 4.6 g/dL (3.5-5.0); Calcium 10.3 mg/dL (8.4-10.2); Potassium 5.7 mmol/L (3.5-5.1); Total Bilirubin 0.6 mg/dL (0.2-1.3); Total Protein 8.3 g/dL (6.3-8.2)
[2019-02-21 16:56] LABS: Glucose,Whole Blood 85 mg/dL (75-99)
[2019-02-21] MEDS: INSULIN ASPART (NovoLOG) 100 UNIT/ML VIAL SQ SCH ×2 (17:28→21:34)
[2019-02-21] MEDS ORDERED: SODIUM CHLORIDE 0.9% 2,000 ML IV ONE (19:10)
[2019-02-21 21:35] LABS: Glucose,Whole Blood 84 mg/dL (75-99)
[2019-02-22] MEDS ORDERED: VANCOMYCIN IV PER PHARMACY 1 EACH MISC MISCELLANE PRN (00:18)
[2019-02-22] MEDS ORDERED: VANCOMYCIN 1,000 MG in SODIUM CHLORIDE 0.9% 250 ML IVPB STA (00:20)
[2019-02-22] MEDS ORDERED: VANCOMYCIN 2,250 MG in SODIUM CHLORIDE 0.9% 500 ML 500 ML IVPB STA (00:21)
[2019-02-22] MEDS ORDERED: SODIUM POLYSTYRENE SULFONATE 15 GM/60 ML BOTTLE PO STA (00:42)
--- NOTE | 2019-02-22 00:43 | P.HPIM ---
History of Present Illness H&P Date: 02/22/19 Patient is a 58-year-old male with a PMH of hypertension, RAE, and GERD who underwent a right posterior thigh abscess drainage and subsequent angy placement on 02/06/[address] Bowers. The patient notes that he was doing okay and was following POSTOP recommendations when he noted that his pain had somewhat worsened in the area and that the angy had fallen off. The patient subsequently came to the ED and was admitted under the surgery service for cellulitis. Medicine is being consulted for management. The patient notes that he has minimal pain at the time of interview since he recently had received his pain medications. He denied any additional complaints. He denied fever, chi lls, nausea, vomiting, chest pain, shortness of breath, or diaphoresis. He underwent an extensive evaluation in the ED with a WBC count of 15.6, potassium 5.7, calcium 10.3, BUN 19, and creatinine 1.10. Review of Systems Pertinent positives and negatives as discussed in HPI, a complete review of systems was performed and all other systems are negative. Past Medical History Past Medical History: GERD/Reflux, Hypertension, Sleep Apnea/CPAP/BIPAP Additional Past Medical History / Comment(s): USES C-PAP MACHINE History of Any Multi-Drug Resistant Organisms: None Reported Past Surgical History: Hernia Repair Additional Past Surgical History / Comment(s): 02/05/19: Right leg ulcer/abcess removed by Dr. Bowers Past Anesthesia/Blood Transfusion Reactions: Motion Sickness Past Psychological History: No Psychological Hx Reported Smoking Status: Never smoker Past Alcohol Use History: Rare Past Drug Use History: None Reported - Past Family History Mother Family Medical History: No Reported History Medications and Allergies Home Medications Medication Instructions Recorded Confirmed Type Aspirin [Adult Low Dose Aspirin EC] 81 mg PO DAILY 09/13/17 02/21/19 History Lisinopril 40 mg PO DAILY 09/13/17 02/21/19 History Multivitamins, Thera [Multivitamin 1 tab PO DAILY 11/10/18 02/21/19 History (formulary)] Omeprazole 40 mg PO DAILY #14 capsule. 11/10/18 02/21/19 Rx Ibuprofen [Motrin] 600 mg PO Q8HR PRN #30 tab 02/06/19 02/21/19 Rx Allergies Allergy/AdvReac Type Severity Reaction Status Date / Time No Known Allergies Allergy Verified 02/21/19 15:17 Physical Exam Vitals: Vital Signs Temp Pulse Pulse Resp BP BP Pulse Ox 02/21/19 19:43 98.4 F 76 19 128/78 96 02/21/19 17:32 18 02/21/19 16:40 98.3 F 81 18 136/76 93 L 02/21/19 16:20 98.5 F 93 16 129/71 96 02/21/19 13:30 98 F 101 H 18 101/67 98 Intake and Output 02/21/19 02/21/19 02/22/19 14:59 22:59 06:59 Intake Total 480 Balance 480 Intake: Oral 480 Other: # Voids 0 Weight 199.581 kg General: non toxic, no distress, appears at stated age, morbidly obese Derm: Right posterior thigh 8 cm x 4 cm large open wound with surrounding induration, erythema, and tenderness Head: atraumatic, normocephalic, symmetric Eyes: EOMI, no lid lag, anicteric sclera, pupils equal round reactive to light ENT: Nose and ears atraumatic, no thrush, no pharyngeal erythema Neck: No thyromegaly, no cervical lymphadenopathy, trachea midline, supple Mouth: no lip lesion, mucus membranes moist Cardiovascular: S1S2 reg, no murmur, positive posterior tibial pulse bilateral, no edema, capillary refill less than 2 seconds Lungs: CTA bilateral, no rhonchi, no rales , no accessory muscle use Abdominal: soft, nontender to palpation, no guarding, no appreciable organomegaly, normal bowel sounds Ext: no gross muscle atrophy, muscle strength 5 out of 5 in all 4 extremities grossly, no contractures, Neuro: CN II-XI grossly intact, light touch intact all 4 extremities, finger to nose within normal limits, Psych: Alert, oriented, appropriate affect Results CBC & Chem 7: 02/21/19 14:58 02/21/19 14:58 Labs: Abnormal Lab Results - Last 24 Hours (Table) 02/21/19 02/21/19 Range/Units 14:58 14:58 WBC 18.6 H (3.8-10.6) k/uL Neutrophils # 15.6 H (1.3-7.7) k/uL Potassium 5.7 H (3.5-5.1) mmol/L Carbon Dioxide 17 L (22-30) mmol/L Calcium 10.3 H (8.4-10.2) mg/dL Total Protein 8.3 H (6.3-8.2) g/dL Thrombosis Risk Factor Assmnt - Choose All That Apply Each Factor Represents 1 point: Age 41-60 years Each Risk Factor Represents 3 Points: Family history of DVT/PE Thrombosis Risk Factor Assessment Total Risk Factor Score: 4 Thrombosis Risk Factor Assessment Level: Moderate Risk Assessment and Plan Plan: Sepsis secondary to cellulitis -Started on vancomycin and Zosyn -Follow-up surgery recommendations -Pain control -IV fluids Hyperkalemia -Ordered Kayexalate -Follow-up BMP Chronic conditions: Hypertension, RAE, GERD -Continue with home meds, hold antihypertensives in setting of sepsis DVT prophylaxis -IPCDs
[2019-02-22] MEDS: PIPERACILLIN-TAZOBACTAM 3.375 GM in SODIUM CHLORIDE 0.9% 100 ML IVPB SCH ×4 (00:45→23:03)
[2019-02-22] MEDS: SODIUM CHLORIDE 0.9% 1,000 ML IV SCH ×3 (00:45→22:08)
[2019-02-22 07:07] LABS: Basophils # (A) 0.1 k/uL (0-0.2); Basophils % (A) 1 %; Eosinophils # (A) 0.5 k/uL (0-0.7); Eosinophils % (A) 5 %; HCT 39.7 % (39.0-53.0); Lymphocytes # (A) 1.7 k/uL (1.0-4.8); Lymphocytes % (A) 18 %; MCH 28.4 pg (25.0-35.0); MCHC 32.8 g/dL (31.0-37.0); MCV 86.5 fL (80.0-100.0); Mean Platelet Volume 7.9; Monocytes # (A) 0.7 k/uL (0-1.0); Monocytes % (A) 8 %; Neutrophils # (A) 5.9 k/uL (1.3-7.7); Neutrophils % (A) 64 %; Platelet Count 288 k/uL (150-450); RBC 4.59 m/uL (4.30-5.90); RDW 14.3 % (11.5-15.5); WBC 9.2 k/uL (3.8-10.6)
[2019-02-22 07:13] LABS: Glucose,Whole Blood 85 mg/dL (75-99)
[2019-02-22 07:17] LABS: African American GFR (CKD) >90 (>60 ml/min/1.73 sqM); Anion Gap 9 mmol/L; Blood Urea Nitrogen 15 mg/dL (9-20); Calcium 9.1 mg/dL (8.4-10.2); Carbon Dioxide 23 mmol/L (22-30); Chloride 108 mmol/L (98-107); Glucose 95 mg/dL (74-99); Potassium 4.2 mmol/L (3.5-5.1); Sodium 140 mmol/L (137-145)
[2019-02-22] MEDS: ASPIRIN 81 MG PO SCH (07:17)
[2019-02-22] MEDS: PANTOPRAZOLE 40 MG TABLET PO SCH (07:17)
[2019-02-22] MEDS: MULTIVITAMINS, THERA 1 EACH TAB PO SCH (07:17)
[2019-02-22] MEDS: HYDROcodone/APAP 5-325MG 1 EACH TAB PO PRN (07:17)
[2019-02-22] MEDS: INSULIN ASPART (NovoLOG) 100 UNIT/ML VIAL SQ SCH ×4 (07:48→20:46)
[2019-02-22 10:34] VITALS: BMI 71.0
--- NOTE | 2019-02-22 10:43 | P.PN ---
Subjective Progress Note Date: 02/22/19 Principal diagnosis: right posterior hip pain Patient is a 58-year-old male with past medical history of hypertension, obstructive sleep apnea, GERD, and morbid obesity BMI of 71 who underwent a right posterior thigh hematoma drainage with staple placement on 02/06/19. Patient noticed that the wound was dehiscing and the angy had fallen off. He subsequently presented to the ER on 02/21/19 and was admitted under surgery for wound dehisced incision cellulitis along with sepsis. Patient seen and examined at bedside. He is still having some right posterior thigh pain. He denies any nausea, vomiting, chest pain, shortness of breath, or diarrhea. Apparently he has been being worked up by Dr. Austin for possible gastric bypass surgery which was when this abscess was discovered. Patient states he did not know he had type 2 diabetes until being seen by Dr. Austin. He has never been on any medications for diabetes/ Objective - Vital Signs Vital signs: Vital Signs Temp 98.2 F 02/22/19 07:28 Pulse 91 02/22/19 07:28 Resp 17 02/22/19 07:30 BP 150/80 02/22/19 07:28 Pulse Ox 98 02/22/19 07:28 Intake & Output 02/21/19 02/22/19 02/22/19 18:59 06:59 18:59 Intake Total 480 480 Balance 480 480 Weight 199.581 kg Intake: Oral 480 480 Other: Voiding Method Toilet Toilet # Voids 1 - Exam General: Non toxic., no distress, appears at stated age, Morbid obesity Derm: Right posterior hip area near her groin with wound dehiscence secondary to angy being pulled apart. Associated with surrounding erythema, no gross drainage from the wound site, not malodorous, warm, dry Head: atraumatic, normocephalic, symmetric Eyes: EOMI, no lid lag, anicteric sclera Mouth: no lip lesion, mucus membranes moist Cardiovascular: S1S2 reg, no murmur, positive posterior tibial pulse bilateral, Lungs: decreased bs bilateral, no rhonchi, no rales , no accessory muscle use Abdominal: soft, nontender to palpation, no guarding, no appreciable organomegaly Ext: no gross muscle atrophy, trace edema, no contractures Neuro: CN II-XI grossly intact, no focal neuro deficits Psych: Alert, oriented, appropriate affect - Labs CBC & Chem 7: 02/22/19 06:43 02/22/19 06:43 Labs: Abnormal Lab Results - Last 24 Hours (Table) 02/21/19 02/21/19 02/22/19 Range/Units 14:58 14:58 06:43 WBC 18.6 H (3.8-10.6) k/uL Neutrophils # 15.6 H (1.3-7.7) k/uL Potassium 5.7 H (3.5-5.1) mmol/L Chloride 108 H (98-107) mmol/L Carbon Dioxide 17 L (22-30) mmol/L Calcium 10.3 H (8.4-10.2) mg/dL Total Protein 8.3 H (6.3-8.2) g/dL Assessment and Plan Assessment: Right posterior thigh wound dehiscence with possible surrounding cellulitis -Surgery recommendations currently on wet-to-dry dressings -Culture wound -Downgrade to Unasyn and Vanco -Repeat CBC and BMP in a.m. Will need to monitor closely as Zosyn and vancomycin increased risk of renal failure -Also asked nurse to continue offloading by placing pillows underneath the patient as part of this redness appears that could be a stage I pressure ulcer developing Prediabetes -Hemoglobin A1c 6.1 in October -Repeat A1c pending -Continue with sliding scale insulin. Doubt overt diabetes is patient sugars have been well-controlled without intervention. -If diabetic likely could use oral therapy. Would suggest metformin or possibly GLP-1 inhibitor to help with weight loss Morbid obesity with BMI 71 -Working with Dr. Austin to go towards bariatric surgery -Outpatient structured weight loss Obstructive sleep apnea -Encourage patient to bring in CPAP from home -Order our CPAP GERD -PPI Hypertension -Continue lisinopril -Follow blood pressures Thank you for allowing us to participate in the care of this patient. Do not hesitate to contact us with questions. Someone can be reached from the [facility] hospitalist group at all hours of the day at [phone].
[2019-02-22] MEDS: VANCOMYCIN 2,500 MG in SODIUM CHLORIDE 0.9% 500 ML 500 ML IVPB SCH ×2 (11:32→23:03)
[2019-02-22 11:49] LABS: Glucose,Whole Blood 89 mg/dL (75-99)
[2019-02-22] MEDS ORDERED: VANCOMYCIN 2,000 MG in SODIUM CHLORIDE 0.9% 500 ML 500 ML IVPB SCH (14:00)
--- NOTE | 2019-02-22 14:09 | P.PN ---
Subjective Progress Note Date: 02/22/19 DATE OF SERVICE: 02/21/2019 CHIEF COMPLAINT: Cellulitis of right thigh with wound dehiscence HISTORY OF PRESENT ILLNESS: Bryan Ferrell is a 58-year-old male status post excision of hemangioma along the right inner thigh. Since admission, he is feeling better. He is o wet-to-dry dressing. No fevers or chills. He is on a bariatric bed. He is tolerating diet. He has history of severe short term memory impairment and is now writing down his expected care goals. PHYSICAL EXAM: VITAL SIGNS: Height 5 foot 9 inches, weight 439 pounds. BMI 65.0 GENERAL: Well-developed in no acute distress. HEENT: No scleral icterus. Extraocular movements grossly intact. Hears conversational speech. No nasal drainage. NECK: Supple without lymphadenopathy. CHEST: Nonlabored respirations with equal bilateral excursions. CARDIOVASCULAR: Regular rate and regular rhythm. Distal 2+ pulses. ABDOMEN: Obese, soft, nontender, nondistended. MUSCULOSKELETAL: No clubbing, cyanosis. Gross strength 5/5 distal lower extremities. NEURO: No focal or lateralizing signs. Cranial nerves 2 through 12 grossly within normal limits. PSYCH: Appropriate affect. Alert and oriented to person, place and time. SKIN: Good skin turgor. Dressing along right thigh clean, dry and intact. ASSESSMENT: 1. Complex right upper thigh complex wound 8 x 5 cm with cellulitis 2. Leukocytosis. 3. Medical nonc-compliance to post-surgical care 4. Morbid obesity due to excess calories 5. Body mass index of 65.1 6. Osteoarthritis of the left hip. 7. Osteoarthritis of the lower back. 8. Hypertensive heart disease. 9. Gastroesophageal reflux disease 10. Obstructive sleep apnea 11. Diabetes type 2, diet controlled 12. Memory impairment. PLAN: 1. Will need home health care with dressing changes daily with wet-to-dry for 10 x 8 cm deep subcutaneous upper medial thigh wound cover with 4 x 4 and ABD with tape after showering. 2. Cultures obtained of wound 3. He is on a specialty bariatric diet. Will need bariatric dietitian follow-up 4. Disposition in 48 hrs pending cultures, home health arrangements. 5. Will need 10 days of antibiotics. 6. May shower. Objective - Vital Signs Vital signs: Vital Signs Temp 98.2 F 02/22/19 07:28 Pulse 91 08/18/19 07:28 Resp 17 02/22/19 07:30 BP 150/80 02/22/19 07:28 Pulse Ox 98 02/22/19 07:28 Intake & Output 02/21/19 02/22/19 02/22/19 18:59 06:59 18:59 Intake Total 480 480 Balance 480 480 Weight 199.581 kg 199.581 kg Intake: Oral 480 480 Other: Voiding Method Toilet Toilet # Voids 1 - Labs CBC & Chem 7: 02/22/19 06:43 02/22/19 06:43 Labs: Abnormal Lab Results - Last 24 Hours (Table) 02/21/19 02/21/19 02/22/19 Range/Units 14:58 14:58 06:43 WBC 18.6 H (3.8-10.6) k/uL Neutrophils # 15.6 H (1.3-7.7) k/uL Potassium 5.7 H (3.5-5.1) mmol/L Chloride 108 H (98-107) mmol/L Carbon Dioxide 17 L (22-30) mmol/L Calcium 10.3 H (8.4-10.2) mg/dL Total Protein 8.3 H (6.3-8.2) g/dL Assessment and Plan (1) Cellulitis of right thigh Current Visit: Yes Status: Acute Code(s): L03.115 - CELLULITIS OF RIGHT LOWER LIMB SNOMED Code(s): 87857213822601832 (2) Noncompliance of patient with dietary regimen Current Visit: Yes Status: Acute Code(s): Z91.11 - PATIENT'S NONCOMPLIANCE WITH DIETARY REGIMEN SNOMED Code(s): 100369671 (3) Leukocytosis (leucocytosis) Current Visit: Yes Status: Acute Code(s): D72.829 - ELEVATED WHITE BLOOD CELL COUNT, UNSPECIFIED SNOMED Code(s): 308787775 (4) Obstructive sleep apnea (adult) (pediatric) Current Visit: Yes Status: Acute Code(s): G47.33 - OBSTRUCTIVE SLEEP APNEA (ADULT) (PEDIATRIC) SNOMED Code(s): 02545197 (5) Diabetes type 2, controlled Current Visit: Yes Status: Acute Code(s): E11.9 - TYPE 2 DIABETES MELLITUS WITHOUT COMPLICATIONS SNOMED Code(s): 82564187 (6) Morbid obesity due to excess calories Current Visit: Yes Status: Acute Code(s): E66.01 - MORBID (SEVERE) OBESITY DUE TO EXCESS CALORIES SNOMED Code(s): 339477027 (7) BMI 60.0-69.9, adult Current Visit: Yes Status: Acute Code(s): Z68.44 - BODY MASS INDEX (BMI) 60.0-69.9, ADULT SNOMED Code(s): 994917711 (8) Hypertensive heart disease Current Visit: Yes Status: Acute Code(s): I11.9 - HYPERTENSIVE HEART DISEASE WITHOUT HEART FAILURE SNOMED Code(s): 60373165 (9) Memory loss or impairment Current Visit: Yes Status: Acute Code(s): R41.3 - OTHER AMNESIA SNOMED Code(s): 617842464
[2019-02-22] MEDS: SODIUM FERRIC GLUCONAT-SUCROSE 125 MG in SODIUM CHLORIDE 0.9% 100 ML IVPB SCH (16:11)
[2019-02-22 17:11] LABS: Glucose,Whole Blood 85 mg/dL (75-99)
[2019-02-22 20:15] LABS: Glucose,Whole Blood 100 mg/dL (75-99)
[2019-02-23 06:58] LABS: Glucose,Whole Blood 113 mg/dL (75-99)
[2019-02-23] MEDS: INSULIN ASPART (NovoLOG) 100 UNIT/ML VIAL SQ SCH ×4 (07:16→22:10)
[2019-02-23] MEDS: PIPERACILLIN-TAZOBACTAM 3.375 GM in SODIUM CHLORIDE 0.9% 100 ML IVPB SCH ×3 (07:53→23:39)
[2019-02-23] MEDS: MULTIVITAMINS, THERA 1 EACH TAB PO SCH (07:54)
[2019-02-23] MEDS: ASPIRIN 81 MG PO SCH (07:54)
[2019-02-23] MEDS: PANTOPRAZOLE 40 MG TABLET PO SCH (07:54)
[2019-02-23 08:25] LABS: Basophils # (A) 0.1 k/uL (0-0.2); Basophils % (A) 1 %; Eosinophils # (A) 0.4 k/uL (0-0.7); Eosinophils % (A) 4 %; HCT 41.1 % (39.0-53.0); HGB 13.5 gm/dL (13.0-17.5); Lymphocytes # (A) 1.1 k/uL (1.0-4.8); Lymphocytes % (A) 11 %; MCH 28.5 pg (25.0-35.0); MCHC 32.7 g/dL (31.0-37.0); MCV 87.1 fL (80.0-100.0); Mean Platelet Volume 7.6; Monocytes # (A) 0.8 k/uL (0-1.0); Monocytes % (A) 7 %; Neutrophils # (A) 8.1 k/uL (1.3-7.7); Neutrophils % (A) 76 %; Platelet Count 289 k/uL (150-450); RBC 4.72 m/uL (4.30-5.90); RDW 13.8 % (11.5-15.5); WBC 10.7 k/uL (3.8-10.6)
[2019-02-23 08:32] LABS: Calcium 9.5 mg/dL (8.4-10.2); Potassium 4.3 mmol/L (3.5-5.1)
[2019-02-23] MEDS: SODIUM FERRIC GLUCONAT-SUCROSE 125 MG in SODIUM CHLORIDE 0.9% 100 ML IVPB SCH (10:12)
[2019-02-23] MEDS ORDERED: POLYETHYLENE GLYCOL 3350 17 GM POWD.PACK PO STA (10:18)
[2019-02-23] MEDS ORDERED: DOCUSATE 100 MG CAP PO PRN (10:26)
--- NOTE | 2019-02-23 10:31 | P.PN ---
Subjective Progress Note Date: 02/23/19 Principal diagnosis: 58-year-old male with PMH of hypertension, RAE, GERD and morbid obesity with BMI 71 underwent right posterior thigh hematoma drainage with stable placement on 02/06/2019. Wound dehiscing was noted and angy had fallen off. He was admitted on 02/21/2019 under general surgery for possible cellulitis. Wound dehiscence with surrounding cellulitis Patient was seen and examined. No acute events overnight. Patient states hasn't had bowel movement in a couple of days but has been on full liquid diet, does not feel constipated. He denies any chest pain, shortness of breath or palpitations. No nausea or vomiting. No fever or chills. Objective - Vital Signs Vital signs: Vital Signs Temp 98.1 F 02/23/19 06:53 Pulse 85 02/23/19 08:25 Resp 18 02/23/19 08:25 BP 148/85 02/23/19 06:53 Pulse Ox 96 02/23/19 06:53 Intake & Output 02/22/19 02/23/19 02/23/19 18:59 06:59 18:59 Intake Total 660 600 480 Balance 660 600 480 Weight 199.581 kg Intake: Intake, IV Titration 600 Amount Piperacillin-Tazobactam 3 100 .375 gm In Sodium Chloride 0.9% 100 ml @ 25 mls/hr IVPB Q8H [facility] Rx#: [id number] Vancomycin 2,500 mg In 500 Sodium Chloride 0.9% 500 ml 500 ml @ 167 mls/hr IVPB Q12H [facility] Rx#: [id number] Oral 660 480 Other: Voiding Method Toilet Toilet Toilet # Voids 1 3 # Bowel Movements 1 - Exam General: [non toxic], [morbid obesity], [appears at stated age] Derm: [warm], [dry] Head: [atraumatic], [normocephalic], [symmetric] Eyes: [EOMI], [no lid lag], [anicteric sclera] Mouth: [no lip lesion], [mucus membranes moist] Cardiovascular: [S1S2 reg], [no murmur] Lungs: [Decreased breath sounds bilateral], [no rhonchi, no rales] , [no accessory muscle use] Abdominal: [soft], [ nontender to palpation], [positive bowel sounds], [no appreciable organomegaly] Ext: [no gross muscle atrophy], [nonpitting bilateral lower extremity edema], [no contractures], [xerosis bilaterally] Neuro: [no focal neuro deficits] Psych: [Alert], [oriented], [appropriate affect] - Labs CBC & Chem 7: 02/23/19 08:04 02/23/19 08:04 Labs: Abnormal Lab Results - Last 24 Hours (Table) 02/22/19 02/23/19 02/23/19 Range/Units 20:04 06:55 08:04 WBC 10.7 H (3.8-10.6) k/uL Neutrophils # 8.1 H (1.3-7.7) k/uL Chloride (98-107) mmol/L Carbon Dioxide (22-30) mmol/L Creatinine (0.66-1.25) mg/dL Glucose (74-99) mg/dL POC Glucose (mg/dL) 100 H 113 H (75-99) mg/dL 02/23/19 Range/Units 08:04 WBC (3.8-10.6) k/uL Neutrophils # (1.3-7.7) k/uL Chloride 110 H (98-107) mmol/L Carbon Dioxide 20 L (22-30) mmol/L Creatinine 1.50 H (0.66-1.25) mg/dL Glucose 115 H (74-99) mg/dL POC Glucose (mg/dL) (75-99) mg/dL Microbiology - Last 24 Hours (Table) 02/22/19 13:50 Gram Stain - Preliminary Leg - Right Wound Culture - Preliminary Gram Neg Bacilli Presumptive Staph aureus 02/22/19 13:50 Anaerobic Culture - Preliminary Leg - Right 02/21/19 14:58 Blood Culture - Preliminary Blood No Growth after 24 hours Assessment and Plan Assessment: Assessment and plan Wound dehiscence surrounding cellulitis Elevated creatinine Prediabetes Morbid obesity with BMI 71 Obstructive sleep apnea GERD Hypertension Wound culture positive staph aureus and gram-negative bacilli. Blood cultures negative at 24 hours. Plans: Management as per surgery, wet-to-dry dressing changes. Continue vancomycin and Zosyn. Follow cultures. Social work for home health. Creatinine 1.50. Likely secondary to vancomycin and Zosyn. Plans: DC Toradol and lisinopril. Continue normal saline at 100 mL per hour. Encourage hydration by mouth. Avoid nephrotoxins. Repeat BMP tomorrow morning. Point of care glucose 115. Plans: Regular Accu-Cheks. Insulin sliding-scale. Hypoglycemic precautions. Can DC on oral hypoglycemic. Plans: Bariatric diet. Plans: Bring CPAP from home. Plans: Continue Protonix. BP 148/85. Plans: Hold lisinopril due to acute kidney injury. Monitor vitals, adjust medications as necessary. Thank you for this consult. Please call with any additional questions or concerns.
[2019-02-23] MEDS: SODIUM CHLORIDE 0.9% 1,000 ML IV SCH ×2 (10:55→19:33)
[2019-02-23] MEDS ORDERED: SODIUM CHLORIDE 0.9% 1,000 ML IV ONE (11:13)
--- NOTE | 2019-02-23 11:26 | P.PN ---
<Janett Valle A - Last Filed: 02/23/19 11:17> Subjective Progress Note Date: 02/23/19 CHIEF COMPLAINT: Cellulitis of right thigh with wound dehiscence HISTORY OF PRESENT ILLNESS: Patient examined at the bedside. He reports his pain is tolerable. Sitting up in the chair. Cultures are positive for gram negative bacilli and presumptive staph aureus. He remains on vancomycin and Zosyn. WBC 10.7 PHYSICAL EXAM: VITAL SIGNS: Currently stable. GENERAL: Well-developed in no acute distress. HEENT: No sclera icterus. Extraocular movements grossly intact. Moist buccal mucosa. Head is atraumatic, normocephalic. Hears conversational speech. No nasal draina ge. NECK: Supple without lymphadenopathy. CHEST: Non-labored respirations and equal bilateral excursions. CARDIOVASCULAR: Regular rate with regular rhythm. Palpable 2+ radial pulses. ABDOMEN: Soft. Nondistended. Nontender. MUSCULOSKELETAL: No clubbing, cyanosis or edema. NEUROLOGIC: No focal or lateralizing signs. Cranial nerves II through XII grossly intact. PSYCH: Appropriate affect. Alert and oriented to person, place and time. SKIN: Well perfused. Good skin turgor. Dressing to right thigh clean dry intact. ASSESSMENT: 1. Complex right upper thigh complex wound 8 x 5 cm with cellulitis 2. Leukocytosis. 3. Medical nonc-compliance to post-surgical care 4. Morbid obesity due to excess calories 5. Body mass index of 65.1 6. Osteoarthritis of the left hip. 7. Osteoarthritis of the lower back. 8. Hypertensive heart disease. 9. Gastroesophageal reflux disease 10. Obstructive sleep apnea 11. Diabetes type 2, diet controlled 12. Memory impairment. PLAN: 1. Continue wet to dry dressing changes daily to right thigh 2. Continue antibiotics 3. Await final culture results 4. Case management on consult for home care at discharge 5. Discharge when cultures are finalized Nurse practitioner note has been reviewed by physician. Signing provider agrees with the documented findings, assessment, and plan of care. Objective - Vital Signs Vital signs: Vital Signs Temp 98.1 F 02/23/19 06:53 Pulse 85 02/23/19 08:25 Resp 18 02/23/19 08:25 BP 148/85 02/23/19 06:53 Pulse Ox 96 02/23/19 06:53 Intake & Output 02/22/19 02/23/1919 18:59 06:59 18:59 Intake Total 660 600 480 Balance 660 600 480 Weight 199.581 kg Intake: Intake, IV Titration 600 Amount Piperacillin-Tazobactam 3 100 .375 gm In Sodium Chloride 0.9% 100 ml @ 25 mls/hr IVPB Q8H [facility] Rx#: [id number] Vancomycin 2,500 mg In 500 Sodium Chloride 0.9% 500 ml 500 ml @ 167 mls/hr IVPB Q12H [facility] Rx#: [id number] Oral 660 480 Other: Voiding Method Toilet Toilet Toilet # Voids 1 3 # Bowel Movements 1 - Labs CBC & Chem 7: 02/23/19 08:04 02/23/19 08:04 Labs: Abnormal Lab Results - Last 24 Hours (Table) 02/22/19 02/23/19 02/23/19 Range/Units 20:04 06:55 08:04 WBC 10.7 H (3.8-10.6) k/uL Neutrophils # 8.1 H (1.3-7.7) k/uL Chloride (98-107) mmol/L Carbon Dioxide (22-30) mmol/L Creatinine (0.66-1.25) mg/dL Glucose (74-99) mg/dL POC Glucose (mg/dL) 100 H 113 H (75-99) mg/dL 02/23/19 Range/Units 08:04 WBC (3.8-10.6) k/uL Neutrophils # (1.3-7.7) k/uL Chloride 110 H (98-107) mmol/L Carbon Dioxide 20 L (22-30) mmol/L Creatinine 1.50 H (0.66-1.25) mg/dL Glucose 115 H (74-99) mg/dL POC Glucose (mg/dL) (75-99) mg/dL Microbiology - Last 24 Hours (Table) 02/22/19 13:50 Gram Stain - Preliminary Leg - Right Wound Culture - Preliminary Gram Neg Bacilli Presumptive Staph aureus 02/22/19 13:50 Anaerobic Culture - Preliminary Leg - Right 02/21/19 14:58 Blood Culture - Preliminary Blood No Growth after 24 hours <Breanne Bowers - Last Filed: 02/23/19 18:02> Subjective As above, bariatric dietitian consulted. Objective - Vital Signs Vital signs: Vital Signs Temp 98.2 F 02/23/19 14:36 Pulse 79 02/23/19 14:36 Resp 18 02/23/19 14:36 BP 139/73 02/23/19 14:36 Pulse Ox 96 02/23/19 14:36 Intake & Output 02/22/19 02/23/19 02/23/19 18:59 06:59 18:59 Intake Total 337 538 6867 Balance 148 741 8832 Weight 199.581 kg 199.581 kg Intake: Intake, IV Titration 600 1839 Amount Piperacillin-Tazobactam 3 100 100 .375 gm In Sodium Chloride 0.9% 100 ml @ 25 mls/hr IVPB Q8H [facility] Rx#: [id number] Sodium Chloride 0.9% 1, 640 000 ml @ 100 mls/hr IV . Q10H [facility] Rx#:[id number] Sodium Chloride 0.9% 1, 999 000 ml @ 999 mls/hr IV . Q1H1M [facility] Rx#:[id number] Sodium Ferric Gluconat- 100 Sucrose 125 mg In Sodium Chloride 0.9% 100 ml @ 100 mls/hr IVPB DAILY [facility] Rx#:[id number] Vancomycin 2,500 mg In 500 Sodium Chloride 0.9% 500 ml 500 ml @ 167 mls/hr IVPB Q12H [facility] Rx#: [id number] Oral 660 2160 Other: Voiding Method Toilet Toilet Toilet # Voids 1 3 3 # Bowel Movements 1 - Labs CBC & Chem 7: 02/23/19 08:04 02/23/19 08:04 Labs: Abnormal Lab Results - Last 24 Hours (Table) 02/22/19 02/23/19 02/23/19 Range/Units 20:04 06:55 08:04 WBC 10.7 H (3.8-10.6) k/uL Neutrophils # 8.1 H (1.3-7.7) k/uL Chloride (98-107) mmol/L Carbon Dioxide (22-30) mmol/L Creatinine (0.66-1.25) mg/dL Glucose (74-99) mg/dL POC Glucose (mg/dL) 100 H 113 H (75-99) mg/dL 02/23/19 Range/Units 08:04 WBC (3.8-10.6) k/uL Neutrophils # (1.3-7.7) k/uL Chloride 110 H (98-107) mmol/L Carbon Dioxide 20 L (22-30) mmol/L Creatinine 1.50 H (0.66-1.25) mg/dL Glucose 115 H (74-99) mg/dL POC Glucose (mg/dL) (75-99) mg/dL Microbiology - Last 24 Hours (Table) 02/21/19 14:58 Blood Culture - Preliminary Blood No Growth after 48 hours 02/22/19 13:50 Gram Stain - Preliminary Leg - Right Wound Culture - Preliminary Gram Neg Bacilli Presumptive Staph aureus 02/22/19 13:50 Anaerobic Culture - Preliminary Leg - Right Assessment and Plan (1) Cellulitis of right thigh Current Visit: Yes Status: Acute Code(s): L03.115 - CELLULITIS OF RIGHT LOWER LIMB SNOMED Code(s): 18774691603639984 (2) Noncompliance of patient with dietary regimen Current Visit: Yes Status: Acute Code(s): Z91.11 - PATIENT'S NONCOMPLIANCE WITH DIETARY REGIMEN SNOMED Code(s): 070557071 (3) Leukocytosis (leucocytosis) Current Visit: Yes Status: Acute Code(s): D72.829 - ELEVATED WHITE BLOOD CELL COUNT, UNSPECIFIED SNOMED Code(s): 204608877 (4) Obstructive sleep apnea (adult) (pediatric) Current Visit: Yes Status: Acute Code(s): G47.33 - OBSTRUCTIVE SLEEP APNEA (ADULT) (PEDIATRIC) SNOMED Code(s): 06673872 (5) Diabetes type 2, controlled Current Visit: Yes Status: Acute Code(s): E11.9 - TYPE 2 DIABETES MELLITUS WITHOUT COMPLICATIONS SNOMED Code(s): 49543018 (6) Morbid obesity due to excess calories Current Visit: Yes Status: Acute Code(s): E66.01 - MORBID (SEVERE) OBESITY DUE TO EXCESS CALORIES SNOMED Code(s): 475558449 (7) BMI 60.0-69.9, adult Current Visit: Yes Status: Acute Code(s): Z68.44 - BODY MASS INDEX (BMI) 60.0-69.9, ADULT SNOMED Code(s): 065718275 (8) Hypertensive heart disease Current Visit: Yes Status: Acute Code(s): I11.9 - HYPERTENSIVE HEART DISEASE WITHOUT HEART FAILURE SNOMED Code(s): 42163570 (9) Memory loss or impairment Current Visit: Yes Status: Acute Code(s): R41.3 - OTHER AMNESIA SNOMED Code(s): 935357740
[2019-02-23 11:53] LABS: Glucose,Whole Blood 98 mg/dL (75-99)
[2019-02-23 12:28] LABS: Hemoglobin A1C 5.7 % (4.0-6.0)
[2019-02-23] MEDS: VANCOMYCIN 2,500 MG in SODIUM CHLORIDE 0.9% 500 ML 500 ML IVPB SCH (13:55)
[2019-02-23] MEDS: VANCOMYCIN 2,000 MG in SODIUM CHLORIDE 0.9% 500 ML 500 ML IVPB SCH (16:01)
[2019-02-23 16:59] LABS: Glucose,Whole Blood 85 mg/dL (75-99)
[2019-02-23 20:13] LABS: Glucose,Whole Blood 89 mg/dL (75-99)
[2019-02-24] MEDS: SODIUM CHLORIDE 0.9% 1,000 ML IV SCH ×3 (04:13→23:43)
[2019-02-24] MEDS: VANCOMYCIN 2,000 MG in SODIUM CHLORIDE 0.9% 500 ML 500 ML IVPB SCH (04:13)
[2019-02-24 06:51] LABS: Glucose,Whole Blood 96 mg/dL (75-99)
[2019-02-24] MEDS: INSULIN ASPART (NovoLOG) 100 UNIT/ML VIAL SQ SCH ×4 (06:55→20:39)
[2019-02-24 07:54] LABS: Calcium 9.6 mg/dL (8.4-10.2)
[2019-02-24 07:55] LABS: Potassium 4.9 mmol/L (3.5-5.1)
[2019-02-24 08:06] LABS: Basophils # (A) 0.1 k/uL (0-0.2); Basophils % (A) 1 %; Eosinophils # (A) 0.6 k/uL (0-0.7); Eosinophils % (A) 5 %; HCT 41.4 % (39.0-53.0); HGB 13.1 gm/dL (13.0-17.5); Hypochromasia Slight; Lymphocytes # (A) 1.5 k/uL (1.0-4.8); Lymphocytes % (A) 14 %; MCHC 31.8 g/dL (31.0-37.0); MCV 91.4 fL (80.0-100.0); Mean Platelet Volume 8.3; Monocytes # (A) 0.9 k/uL (0-1.0); Monocytes % (A) 8 %; Neutrophils # (A) 7.3 k/uL (1.3-7.7); Neutrophils % (A) 69 %; Platelet Count 245 k/uL (150-450); RBC 4.53 m/uL (4.30-5.90); RDW 14.8 % (11.5-15.5); WBC 10.5 k/uL (3.8-10.6)
[2019-02-24] MEDS: ASPIRIN 81 MG PO SCH (08:18)
[2019-02-24] MEDS: MULTIVITAMINS, THERA 1 EACH TAB PO SCH (08:18)
[2019-02-24] MEDS: HYDROcodone/APAP 5-325MG 1 EACH TAB PO PRN ×2 (08:19→16:03)
[2019-02-24] MEDS: PANTOPRAZOLE 40 MG TABLET PO SCH (08:19)
[2019-02-24] MEDS: PIPERACILLIN-TAZOBACTAM 3.375 GM in SODIUM CHLORIDE 0.9% 100 ML IVPB SCH (08:20)
[2019-02-24] MEDS ORDERED: SODIUM CHLORIDE 0.9% 2,000 ML IV ONE (09:12)
[2019-02-24 11:26] LABS: Glucose,Whole Blood 92 mg/dL (75-99)
[2019-02-24] MEDS ORDERED: VANCOMYCIN IV PER PHARMACY 1 EACH MISC MISCELLANE PRN (12:29)
--- NOTE | 2019-02-24 12:39 | P.PN ---
<Janett Valle - Last Filed: 02/24/19 12:23> Subjective Progress Note Date: 02/24/19 CHIEF COMPLAINT: Cellulitis of right thigh with wound dehiscence HISTORY OF PRESENT ILLNESS: Patient examined at the bedside. He reports his pain is tolerable. Sitting up in the chair. Cultures are positive for e coli and presumptive staph aureus. He remains on vancomycin and Zosyn. Creatinine increased today to 1.67. PHYSICAL EXAM: VITAL SIGNS: Currently stable. GENERAL: Well-developed in no acute distress. HEENT: No sclera icterus. Extraocular movements grossly intact. Moist buccal mucosa. Head is atraumatic, normocephalic. Hears conversational speech. No nasal drainage. NECK: Supple without lymphadenopathy. CHEST: Non-labored respirations and equal bilateral excursions. CARDIOVASCULAR: Regular rate with regular rhythm. Palpable 2+ radial pulses. ABDOMEN: Soft. Nondistended. Nontender. MUSCULOSKELETAL: No clubbing, cyanosis or edema. NEUROLOGIC: No focal or lateralizing signs. Cranial nerves II through XII grossly intact. PSYCH: Appropriate affect. Alert and oriented to person, place and time. SKIN: Well perfused. Good skin turgor. Dressing to right thigh clean dry intact. ASSESSMENT: 1. Complex right upper thigh complex wound 8 x 5 cm with cellulitis 2. Leukocytosis. 3. Medical nonc-compliance to post-surgical care 4. Morbid obesity due to excess calories 5. Body mass index of 65.1 6. Osteoarthritis of the left hip. 7. Osteoarthritis of the lower back. 8. Hypertensive heart disease. 9. Gastroesophageal reflux disease 10. Obstructive sleep apnea 11. Diabetes type 2, diet controlled 12. Memory impairment. 13. Acute kidney injury PLAN: 1. Continue wet to dry dressing changes daily to right thigh 2. Continue antibiotics. Currently receiving Zosyn and Vanco 3. Sensitivity report for E. coli reviewed. Awaiting final identification for presumptive staph aureus and sensitivity report. 4. With patient's rising creatinine, will consult Dr. Najera infectious disecyndy e, for further antibiotic recommendations 5. Consult nephrology for ROBI. Continue IV fluids at 100cc/hr. 2L bolus ordered per Dr. Bowers. Nurse practitioner note has been reviewed by physician. Signing provider agrees with the documented findings, assessment, and plan of care. Objective - Vital Signs Vital signs: Vital Signs Temp 98 F 02/24/19 07:00 Pulse 75 02/24/19 07:00 Resp 15 02/24/19 07:00 BP 133/71 02/24/19 07:00 Pulse Ox 96 02/24/19 07:00 Intake & Output 02/23/19 02/24/19 02/24/19 18:59 06:59 18:59 Intake Total 4239 1500 236 Balance 4239 1500 236 Weight 199.581 kg Intake: Intake, IV Titration 1839 1500 Amount Piperacillin-Tazobactam 3 100 200 .375 gm In Sodium Chloride 0.9% 100 ml @ 25 mls/hr IVPB Q8H [facility] Rx#: [id number] Sodium Chloride 0.9% 1, 640 800 000 ml @ 100 mls/hr IV . Q10H [facility] Rx#:[id number] Sodium Chloride 0.9% 1, 999 000 ml @ 999 mls/hr IV . Q1H1M [facility] Rx#:[id number] Sodium Ferric Gluconat- 100 Sucrose 125 mg In Sodium Chloride 0.9% 100 ml @ 100 mls/hr IVPB DAILY [facility] Rx#:[id number] Vancomycin 2,000 mg In 500 Sodium Chloride 0.9% 500 ml 500 ml @ 167 mls/hr IVPB Q12H [facility] Rx#: [id number] Oral 2400 236 Other: Voiding Method Toilet Toilet Toilet Urinal Urinal # Voids 3 3 - Labs CBC & Chem 7: 02/24/19 07:10 02/24/19 07:10 Labs: Abnormal Lab Results - Last 24 Hours (Table) 02/24/19 Range/Units 07:10 Chloride 115 H (98-107) mmol/L Carbon Dioxide 18 L (22-30) mmol/L Creatinine 1.67 H (0.66-1.25) mg/dL Glucose 103 H (74-99) mg/dL Microbiology - Last 24 Hours (Table) 02/22/19 13:50 Gram Stain - Preliminary Leg - Right Wound Culture - Preliminary Escherichia coli Presumptive Staph aureus 02/21/19 14:58 Blood Culture - Preliminary Blood No Growth after 48 hours <Breanne Bowers - Last Filed: 02/24/19 20:36> Subjective As above. Pending further antibiotic management for wound infection. Appreciate renal consultation. Objective - Vital Signs Vital signs: Vital Signs Temp 98.2 F 02/24/19 18:54 Pulse 91 02/24/19 18:54 Resp 16 02/24/19 18:54 BP 138/79 02/24/19 18:54 Pulse Ox 95 02/24/19 18:54 Intake & Output 02/24/19 02/24/19 02/25/19 06:59 18:59 06:59 Intake Total 1500 708 Balance 1500 708 Intake: Intake, IV Titration 1500 Amount Piperacillin-Tazobactam 3 200 .375 gm In Sodium Chloride 0.9% 100 ml @ 25 mls/hr IVPB Q8H [facility] Rx#: [id number] Sodium Chloride 0.9% 1, 800 000 ml @ 100 mls/hr IV . Q10H [facility] Rx#:[id number] Vancomycin 2,000 mg In 500 Sodium Chloride 0.9% 500 ml 500 ml @ 167 mls/hr IVPB Q12H [facility] Rx#: [id number] Oral 708 Other: Voiding Method Toilet Toilet Urinal Urinal # Voids 3 2 # Bowel Movements 1 - Labs CBC & Chem 7: 02/24/19 07:10 02/24/19 07:10 Labs: Abnormal Lab Results - Last 24 Hours (Table) 02/24/19 Range/Units 07:10 Chloride 115 H (98-107) mmol/L Carbon Dioxide 18 L (22-30) mmol/L Creatinine 1.67 H (0.66-1.25) mg/dL Glucose 103 H (74-99) mg/dL Microbiology - Last 24 Hours (Table) 02/21/19 14:58 Blood Culture - Preliminary Blood No Growth after 72 hours 02/22/19 13:50 Anaerobic Culture - Preliminary Leg - Right 02/22/19 13:50 Gram Stain - Preliminary Leg - Right Wound Culture - Preliminary Escherichia coli Presumptive Staph aureus Assessment and Plan (1) Cellulitis of right thigh Current Visit: Yes Status: Acute Code(s): L03.115 - CELLULITIS OF RIGHT LOWER LIMB SNOMED Code(s): 08192291385749765 (2) Noncompliance of patient with dietary regimen Current Visit: Yes Status: Acute Code(s): Z91.11 - PATIENT'S NONCOMPLIANCE W ITH DIETARY REGIMEN SNOMED Code(s): 520216233 (3) Leukocytosis (leucocytosis) Current Visit: Yes Status: Acute Code(s): D72.829 - ELEVATED WHITE BLOOD CELL COUNT, UNSPECIFIED SNOMED Code(s): 613437024 (4) Obstructive sleep apnea (adult) (pediatric) Current Visit: Yes Status: Acute Code(s): G47.33 - OBSTRUCTIVE SLEEP APNEA (ADULT) (PEDIATRIC) SNOMED Code(s): 99778659 (5) Diabetes type 2, controlled Current Visit: Yes Status: Acute Code(s): E11.9 - TYPE 2 DIABETES MELLITUS WITHOUT COMPLICATIONS SNOMED Code(s): 61715080 (6) Morbid obesity due to excess calories Current Visit: Yes Status: Acute Code(s): E66.01 - MORBID (SEVERE) OBESITY DUE TO EXCESS CALORIES SNOMED Code(s): 339308571 (7) BMI 60.0-69.9, adult Current Visit: Yes Status: Acute Code(s): Z68.44 - BODY MASS INDEX (BMI) 60.0-69.9, ADULT SNOMED Code(s): 912476593 (8) Hypertensive heart disease Current Visit: Yes Status: Acute Code(s): I11.9 - HYPERTENSIVE HEART DISEASE WITHOUT HEART FAILURE SNOMED Code(s): 10642806 (9) Memory loss or impairment Current Visit: Yes Status: Acute Code(s): R41.3 - OTHER AMNESIA SNOMED Code(s): 334167781
--- NOTE | 2019-02-24 12:49 | P.NPCON ---
History of Present Illness - Reason for Consult acute renal failure - History of Present Illness Reason for consultation: Acute kidney injury History of present illness: Patient is a 58-year-old male seen in consultation for acute kidney injury. Patient's baseline creatinine is 1 and is up to 1.67 today. Patient states he went drainage of his right posterior thigh abscess on 02/06/2019. Patient was d oing fine but then noticed his angy fell off. He subsequently came to the hospital. He is currently on IV vancomycin and Zosyn. Vancomycin level noted to be 23.1 as of yesterday. No chest pain or shortness of breath. Admits to good urine output. No hematuria or dysuria. He was taking Motrin once daily for pain control. No history of diabetes. Denies any family history of renal disease. Hemodynamically stable. No evidence of hypotension. Appetite is good. No active complaints at this time. Vital signs are stable. General: The patient appeared well nourished and normally developed. HEENT: Head exam is unremarkable. Neck is without jugular venous distension. LUNGS: Lungs are clear to auscultation and percussion. Breath sounds decreased. HEART: Rate and Rhythm are regular. First and second heart sounds normal. No murmurs, rubs or gallops. ABDOMEN: Abdominal exam reveals normal bowel sounds. Non-tender and non- distended. No evidence of peritonitis. EXTREMITITES: No clubbing, cyanosis, or edema. Past Medical History Past Medical History: GERD/Reflux, Hypertension, Sleep Apnea/CPAP/BIPAP Additional Past Medical History / Comment(s): USES C-PAP MACHINE History of Any Multi-Drug Resistant Organisms: None Reported Past Surgical History: Hernia Repair Additional Past Surgical History / Comment(s): 02/05/19: Right leg ulcer/abcess re moved by Dr. Bowers Past Anesthesia/Blood Transfusion Reactions: Motion Sickness Past Psychological History: No Psychological Hx Reported Smoking Status: Never smoker Past Alcohol Use History: Rare Past Drug Use History: None Reported - Past Family History Mother Family Medical History: No Reported History Medications and Allergies Home Medications Medication Instructions Recorded Confirmed Type Aspirin [Adult Low Dose Aspirin EC] 81 mg PO DAILY 09/13/17 02/21/19 History Lisinopril 40 mg PO DAILY 09/13/17 02/21/19 History Multivitamins, Thera [Multivitamin 1 tab PO DAILY 11/10/18 02/21/19 History (formulary)] Omeprazole 40 mg PO DAILY #14 capsule. 11/10/18 02/21/19 Rx Ibuprofen [Motrin] 600 mg PO Q8HR PRN #30 tab 02/06/19 02/21/19 Rx Allergies Allergy/AdvReac Type Severity Reaction Status Date / Time No Known Allergies Allergy Verified 02/21/19 15:17 Physical Exam Vitals: Vital Signs Temp Pulse Resp BP Pulse Ox 02/24/19 07:00 98 F 75 15 133/71 96 02/24/19 01:04 98.0 F 72 15 145/81 96 02/23/19 19:21 98.4 F 73 18 147/83 99 02/23/19 16:00 79 18 02/23/19 14:36 98.2 F 79 18 139/73 96 Intake and Output 02/23/19 02/24/19 02/24/19 22:59 06:59 14:59 Intake Total 240 1500 236 Balance 240 1500 236 Intake: Intake, IV Titration 1500 Amount Piperacillin-Tazobactam 3 200 .375 gm In Sodium Chloride 0.9% 100 ml @ 25 mls/hr IVPB Q8H [facility] Rx#: [id number] Sodium Chloride 0.9% 1, 800 000 ml @ 100 mls/hr IV . Q10H [facility] Rx#:[id number] Vancomycin 2,000 mg In 500 Sodium Chloride 0.9% 500 ml 500 ml @ 167 mls/hr IVPB Q12H [facility] Rx#: [id number] Oral 240 236 Other: Voiding Method Toilet Toilet Urinal Urinal # Voids 1 3 Results - Lab Results Most recent lab results Calcium 9.6 mg/dL (8.4-10.2) 02/24/19 07:10 02/24/19 07:10 02/24/19 07:10 Assessment and Plan Plan: Assessment: 1. Acute kidney injury secondary to ATN secondary to nonsteroidals and infection. Baseline creatinine is near 1 and is up to 1.67 today. 2. Right thigh abscess maintained on IV antibiotics. Wound culture positive for staph aureus and E. coli. Infectious disease consulted. 3. Metabolic acidosis secondary to acute kidney injury and IV fluids. 4. Benign hypertension. Controlled. Plan: Remains off IV fluids. Oral intake is good. Avoid nephrotoxins. Monitor vancomycin levels. Dose to be adjusted for renal function. Check urinalysis. Repeat electrolytes in the morning. Monitor bicarb. Thank you for the consultation. I will continue to follow the patient with you during his hospital stay.
--- NOTE | 2019-02-24 13:07 | P.PN ---
Subjective Progress Note Date: 02/24/19 Principal diagnosis: right lower extremity wound dehiscence and cellulitis Patient was seen and examined. No acute events overnight. Patient reports no changes in his condition. He denies any chest pain, shortness breath or palpitations. No fever or chills. No nausea or vomiting. Objective - Vital Signs Vital signs: Vital Signs Temp 98 F 02/24/19 07:00 Pulse 75 02/24/19 07:00 Resp 15 02/24/19 07:00 BP 133/71 02/24/19 07:00 Pulse Ox 96 02/24/19 07:00 Intake & Output 02/23/19 02/24/19 02/24/19 18:59 06:59 18:59 Intake Total 4239 1500 236 Balance 4239 1500 236 Weight 199.581 kg Intake: Intake, IV Titration 1839 1500 Amount Piperacillin-Tazobactam 3 100 200 .375 gm In Sodium Chloride 0.9% 100 ml @ 25 mls/hr IVPB Q8H [facility] Rx#: [id number] Sodium Chloride 0.9% 1, 640 800 000 ml @ 100 mls/hr IV . Q10H [facility] Rx#:[id number] Sodium Chloride 0.9% 1, 999 000 ml @ 999 mls/hr IV . Q1H1[facility] Rx#:[id number] Sodium Ferric Gluconat- 100 Sucrose 125 mg In Sodium Chloride 0.9% 100 ml @ 100 mls/hr IVPB DAILY [facility] Rx#:[id number] Vancomycin 2,000 mg In 500 Sodium Chloride 0.9% 500 ml 500 ml @ 167 mls/hr IVPB Q12H [facility] Rx#: [id number] Oral 2400 236 Other: Voiding Method Toilet Toilet Toilet Urinal Urinal # Voids 3 3 - Exam General: [non toxic], [morbid obesity], [appears at stated age] Derm: [warm], [dry] Head: [atraumatic], [normocephalic], [symmetric] Eyes: [EOMI], [no lid lag], [anicteric sclera] Mouth: [no lip lesion], [mucus membranes moist] Cardiovascular: [S1S2 reg], [no murmur] Lungs: [Decreased breath sounds bilateral], [no rhonchi, no rales] , [no accessory muscle use] Abdominal: [soft], [ nontender to palpation], [positive bowel sounds], [no appreciable organomegaly] Ext: [no gross muscle atrophy], [nonpitting bilateral lower extremity edema], [no contractures], [xerosis bilaterally] Neuro: [no focal neuro deficits] Psych: [Alert], [oriented], [appropriate affect] - Labs CBC & Chem 7: 02/24/19 07:10 02/24/19 07:10 Labs: Abnormal Lab Results - Last 24 Hours (Table) 02/24/19 Range/Units 07:10 Chloride 115 H (98-107) mmol/L Carbon Dioxide 18 L (22-30) mmol/L Creatinine 1.67 H (0.66-1.25) mg/dL Glucose 103 H (74-99) mg/dL Microbiology - Last 24 Hours (Table) 02/22/19 13:50 Gram Stain - Preliminary Leg - Right Wound Culture - Preliminary Escherichia coli Presumptive Staph aureus 02/21/19 14:58 Blood Culture - Preliminary Blood No Growth after 48 hours Assessment and Plan Assessment: Assessment and plan Wound dehiscence surrounding cellulitis Elevated creatinine Prediabetes Morbid obesity with BMI 71 Obstructive sleep apnea GERD Hypertension Wound culture positive staph aureus and E. coli. Blood cultures negative at 48 hours. Plans: Management as per surgery, wet-to-dry dressing changes. Continue vancomycin and Zosyn. I anticipate that patient can probably be discharged home with one oral antibiotic. Final sensitivities of cultures still pending. Follow ID consultation. Creatinine 1.50-1.67. Likely secondary to vancomycin and Zosyn. Plans: DC Toradol and lisinopril. Encourage hydration by mouth. Avoid nephrotoxins. Repeat BMP tomorrow morning.follow nephrology consultation. Point of care glucose 103. Plans: Regular Accu-Cheks. Insulin sliding-scale. Hypoglycemic precautions. Can DC on oral hypoglycemic. Plans: Bariatric diet. Plans: Bring CPAP from home. Plans: Continue Protonix. BP 133/71. Plans: Hold lisinopril due to acute kidney injury. Monitor vitals, adjust medications as necessary. Culture sensitivities pending, ID consult. Nephrology on board for acute kidney injury. Likely DC tomorrow as per Surgery. Thank you for this consult. Please call with any additional questions or concerns.
[2019-02-24] MEDS: SODIUM FERRIC GLUCONAT-SUCROSE 125 MG in SODIUM CHLORIDE 0.9% 100 ML IVPB SCH (13:41)
[2019-02-24 16:15] LABS: Appearance,Urine Clear (Clear); Bilirubin,Urine Negative (Negative); Blood,Urine Negative (Negative); Color,Urine Light Yellow; Glucose,Urine (UA) Negative (Negative); Ketones,Urine Negative (Negative); Leukocyte Esterase,Urine Negative (Negative); Nitrite,Urine Negative (Negative); Protein,Urine Negative (Negative); Specific Gravity,Urine 1.008 (1.001-1.035); Urobilinogen,Urine <2.0 mg/dL (<2.0)
[2019-02-24 16:42] LABS: Glucose,Whole Blood 86 mg/dL (75-99)
[2019-02-24 20:37] LABS: Glucose,Whole Blood 104 mg/dL (75-99)
--- NOTE | 2019-02-24 21:25 | P.CONS ---
History of Present Illness - Reason for Consult Consult date: 02/24/19 - Chief Complaint Right leg abscess - History of Present Illness 58-year-old male who has superobesity was having difficulty with a chronic ulceration to the posterior aspect of his right thigh and was seen by surgery. Because the chronic nature of the disease in the depth to it was taken the operating room and the site was incised and drained. Pathology revealed evidence of a cavernous hemangioma with no evidence of malignancy or other pathology. The wound is oozing Dehisced and has remained open. He was not feeling well either and constantly has been admitted for further evaluation of this infected area. With concerns the infectious diseases consultation was re quested. Patient also has evidence of acute renal insufficiency and nephrology consult has been obtained also. The patient does not relate to high-grade fever, chills or rigors. He has not had difficulties like this in the past. Review of Systems HEENT:Denies headache or acute visual change. Denies sinus or mouth discomforts. Denies neck stiffness or pain. Denies significant oral cavity pain. Denies difficulty on swallowing. Lungs: Denies significant shortness of breath, cough, sputum production, or hemoptysis. Cardiovascular: Denies significant shortness of breath, chest pain, chest wall pain, orthopnea, dyspnea on exertion, syncope Gastrointestinal:Denies nausea, vomiting, diarrhea, constipation, hematemesis, melena, hematochezia. No no significant change of bowel habit noticed. Musculoskeletal: denies significant myalgias or arthralgias. No new joint swelling. Denies new back pain. Skin: As per the HPI evidence of the significant abnormality right posterior thigh cavity is noted surrounding tenderness Neuro: Denies headache or visual change. Denies any new onset weakness or difficulty with ambulation. Denies falls or seizures. Psychiatric:Denies anxiety or depression. Endocrine: Denies significant fatigue, denies significant weight loss or weight gain. Past Medical History Past Medical History: GERD/Reflux, Hypertension, Sleep Apnea/CPAP/BIPAP Additional Past Medical History / Comment(s): USES C-PAP MACHINE History of Any Multi-Drug Resistant Organisms: None Reported Past Surgical History: Hernia Repair Additional Past Surgical History / Comment(s): 02/05/19: Right leg ulcer/abcess removed by Dr. Bowers Past Anesthesia/Blood Transfusion Reactions: Motion Sickness Past Psychological History: No Psychological Hx Reported Additional Psychological History / Comment(s): Is not . Does have 2 children. 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 No experience. No recent travels. No animals in the home. Is not a current tobacco smoker. Denies recreational drug use or alcohol use. Smoking Status: Never smoker Past Alcohol Use History: Rare Past Drug Use History: None Reported - Past Family History Mother Family Medical History: No Reported History Medications and Allergies Home Medications and Allergies Comment(s): Current Medications Acetaminophen (Tylenol Tab) 650 mg PO Q6HR PRN PRN Reason: Mild Pain or Fever > 100.5 Hydrocodone Bitart/Acetaminophen ([place] 5-325) 1 each PO Q4HR PRN PRN Reason: Moderate Pain Last Admin: 02/24/19 16:03 Dose: 1 each Documented by: Aspirin (Aspirin) 81 mg PO DAILY [facility] Last Admin: 02/24/19 08:18 Dose: 81 mg Documented by: Docusate Sodium (Colace) 100 mg PO DAILY PRN PRN Reason: Constipation Last Admin: 02/23/19 10:55 Dose: 100 mg Documented by: Sodium Chloride (Saline 0.9%) 1,000 mls @ 100 mls/hr IV .Q10H [facility] Last Admin: 02/24/19 13:49 Dose: 100 mls/hr Documented by: Ferric Sodium Gluconate 125 mg (/ Sodium Chloride) 110 mls @ 100 mls/hr IVPB DAILY [facility] Last Admin: 02/24/19 13:41 Dose: 100 mls/hr Documented by: Ceftriaxone Sodium 2 gm/ (Sodium Chloride) 50 mls @ 100 mls/hr IVPB Q24HR [facility] Last Admin: 02/24/19 16:03 Dose: 100 mls/hr Documented by: Insulin Aspart (Novolog) 0 unit SQ ACHS [facility]; Protocol Last Admin: 02/24/19 20:39 Dose: Not Given Documented by: Naloxone HCl (Narcan) 0.2 mg IV Q2M PRN PRN Reason: Opioid Reversal Ondansetron HCl (Zofran) 4 mg IVP Q8HR PRN PRN Reason: Nausea And Vomiting Pantoprazole Sodium (Protonix) 40 mg PO DAILY@0730 [facility] Last Admin: 02/24/19 08:19 Dose: 40 mg Documented by: Home Medications Medication Instructions Recorded Confirmed Type Aspirin [Adult Low Dose Aspirin EC] 81 mg PO DAILY 09/13/17 02/21/19 History Lisinopril 40 mg PO DAILY 09/13/17 02/21/19 History Multivitamins, Thera [Multivitamin 1 tab PO DAILY 11/10/18 02/21/19 History (formulary)] Omeprazole 40 mg PO DAILY #14 capsule. 11/10/18 02/21/19 Rx Ibuprofen [Motrin] 600 mg PO Q8HR PRN #30 tab 02/06/19 02/21/19 Rx Allergies Allergy/AdvReac Type Severity Reaction Status Date / Time No Known Allergies Allergy Verified 02/21/19 15:17 Physical Exam Vitals: Vital Signs Temp Pulse Resp BP Pulse Ox 02/24/19 18:54 98.2 F 91 16 138/79 95 02/24/19 15:00 99 F 80 15 156/77 94 L 02/24/19 07:00 98 F 75 15 133/71 96 02/24/19 01:04 98.0 F 72 15 145/81 96 Intake and Output 02/24/19 02/24/19 02/24/19 06:59 14:59 22:59 Intake Total 1500 472 236 Balance 1500 472 236 Intake: Intake, IV Titration 1500 Amount Piperacillin-Tazobactam 3 200 .375 gm In Sodium Chloride 0.9% 100 ml @ 25 mls/hr IVPB Q8H [facility] Rx#: [id number] Sodium Chloride 0.9% 1, 800 000 ml @ 100 mls/hr IV . Q10H [facility] Rx#:[id number] Vancomycin 2,000 mg In 500 Sodium Chloride 0.9% 500 ml 500 ml @ 167 mls/hr IVPB Q12H [facility] Rx#: [id number] Oral 472 236 Other: Voiding Method Toilet Toilet Urinal Urinal # Voids 3 2 # Bowel Movements 1 Pleasant 58-year-old male who has superobesity HEENT: Anicteric conjunctiva are pink and moist nasal mucosa grossly intact without significant lesions, there is no thrush. Neck: The neck is supple without significant lymphadenopathy or thyromegaly. Lungs: Good bilateral air entry without significant crackles only few wheezes are heard. There is no significant bronchial sounds. There is no egophony or dullness. Heart: Regular rate and rhythm with an audible S1-S2, S4. There is no significant murmur click or rub, PMI was nondisplaced. Abdomen: Obese, Positive bowel sounds soft and nontender without palpable masses or organomegaly. There was no guarding or rebound. Extremities: The upper extremities have excellent pulses they are symmetric, no significant petechiae or telangiectasia. No splinter hemorrhages were noted. The lower extremities have evidence of the chronic edema, chronic lipedema. There is evidence of the ulceration to the right posterior thigh, please see the nursing photography, does have some significant depth. There is surrounding erythema. But is no ascending lymphadenitis Neuro: Awake alert oriented to person place and time. There are no acute new gross focal sensory motor deficits. Results CBC & Chem 7: 02/24/19 07:10 02/24/19 07:10 Labs: Abnormal Lab Results - Last 24 Hours (Table) 02/24/19 02/24/19 Range/Units 07:10 20:26 Chloride 115 H (98-107) mmol/L Carbon Dioxide 18 L (22-30) mmol/L Creatinine 1.67 H (0.66-1.25) mg/dL Glucose 103 H (74-99) mg/dL POC Glucose (mg/dL) 104 H (75-99) mg/dL Microbiology - Last 24 Hours (Table) 02/21/19 14:58 Blood Culture - Preliminary Blood No Growth after 72 hours 02/22/19 13:50 Anaerobic Culture - Preliminary Leg - Right 02/22/19 13:50 Gram Stain - Preliminary Leg - Right Wound Culture - Preliminary Escherichia coli Presumptive Staph aureus Laboratory Results WBC 10.5 k/uL (3.8-10.6) 02/24/19 07:10 RBC 4.53 m/uL (4.30-5.90) 02/24/19 07:10 Hgb 13.1 gm/dL (13.0-17.5) 02/24/19 07:10 Hct 41.4 % (39.0-53.0) 02/24/19 07:10 MCV 91.4 fL (80.0-100.0) 02/24/19 07:10 MCH 29.0 pg (25.0-35.0) 02/24/19 07:10 MCHC 31.8 g/dL (31.0-37.0) 02/24/19 07:10 RDW 14.8 % (11.5-15.5) 02/24/19 07:10 Plt Count 245 k/uL (150-450) 02/24/19 07:10 Neutrophils % 69 % 02/24/19 07:10 Lymphocytes % 14 % 02/24/19 07:10 Monocytes % 8 % 02/24/19 07:10 Eosinophils % 5 % 02/24/19 07:10 Basophils % 1 % 02/24/19 07:10 Neutrophils # 7.3 k/uL (1.3-7.7) 02/24/19 07:10 Lymphocytes # 1.5 k/uL (1.0-4.8) 02/24/19 07:10 Monocytes # 0.9 k/uL (0-1.0) 02/24/19 07:10 Eosinophils # 0.6 k/uL (0-0.7) 02/24/19 07:10 Basophils # 0.1 k/uL (0-0.2) 02/24/19 07:10 Hypochromasia Slight 02/24/19 07:10 Sodium 144 mmol/L (137-145) 02/24/19 07:10 Potassium 4.9 mmol/L (3.5-5.1) 02/24/19 07:10 Chloride 115 mmol/L (98-107) H 02/24/19 07:10 Carbon Dioxide 18 mmol/L (22-30) L 02/24/19 07:10 Anion Gap 11 mmol/L 02/24/19 07:10 BUN 16 mg/dL (9-20) 02/24/19 07:10 Creatinine 1.67 mg/dL (0.66-1.25) H 02/24/19 07:10 Est GFR (CKD-EPI)AfAm 52 (>60 ml/min/1.73 sqM) 02/24/19 07:10 Est GFR (CKD-EPI)NonAf 45 (>60 ml/min/1.73 sqM) 02/24/19 07:10 Glucose 103 mg/dL (74-99) H 02/24/19 07:10 POC Glucose (mg/dL) 104 mg/dL (75-99) H 02/24/19 20:26 POC Glu Career Development Associate ID Teri Law 02/24/19 20:[address] Glu mg/dL 117 02/22/19 06:43 Hemoglobin A1c 5.7 % (4.0-6.0) 02/22/19 06:43 Plasma Lactic Acid [place] 1.9 mmol/L (0.7-2.0) 02/21/19 14:58 Calcium 9.6 mg/dL (8.4-10.2) 02/24/19 07:10 Total Bilirubin 0.6 mg/dL (0.2-1.3) 02/21/19 14:58 AST 45 U/L (17-59) 02/21/19 14:58 ALT 44 U/L (21-72) 02/21/19 14:58 Alkaline Phosphatase 59 U/L (38-126) 02/21/19 14:58 Total Protein 8.3 g/dL (6.3-8.2) H 02/21/19 14:58 Albumin 4.6 g/dL (3.5-5.0) 02/21/19 14:58 Urine Color Light Yellow 02/24/19 15:00 Urine Appearance Clear (Clear) 02/24/19 15:00 Urine pH 5.0 (5.0-8.0) 02/24/19 15:00 Ur Specific [place] 1.008 (1.001-1.035) 02/24/19 15:00 Urine Protein Negative (Negative) 02/24/19 15:00 Urine Glucose (UA) Negative (Negative) 02/24/19 15:00 Urine Ketones Negative (Negative) 02/24/19 15:00 Urine Blood Negative (Negative) 02/24/19 15:00 Urine Nitrite Negative (Negative) 02/24/19 15:00 Urine Bilirubin Negative (Negative) 02/24/19 15:00 Urine Urobilinogen <2.0 mg/dL (<2.0) 02/24/19 15:00 Ur Leukocyte Esterase Negative (Negative) 02/24/19 15:00 Vancomycin Trough 23.1 ug/mL 02/23/19 11:04 Microbiology 02/21/19 14:58 Blood Blood Culture - Preliminary No Growth after 72 hours 02/22/19 13:50 Leg - Right Anaerobic Culture - Preliminary 02/22/19 13:50 Leg - Right Gram Stain - Preliminary 02/22/19 13:50 Leg - Right Wound Culture - Preliminary Escherichia coli Presumptive Staph aureus Assessment and Plan (1) Morbid obesity due to excess calories Current Visit: Yes Status: Acute Code(s): E66.01 - MORBID (SEVERE) OBESITY DUE TO EXCESS CALORIES SNOMED Code(s): 218321446 (2) Large cavernous hemangioma Current Visit: Yes Status: Acute Code(s): D18.09 - HEMANGIOMA OF OTHER SITES SNOMED Code(s): 382188939 (3) Cellulitis of right thigh Narrative/Plan: 58 -year-old male presents to hospital with increasing pain and drainage and odor to his right posterior thigh. There is evidence of a chronic ulcerative lesion and he was taken gapping room and this was incised and drained. A large cavernous hemangioma was found and it was closed. The wound now has dehisced and there is evidence of a secondary infection some foul drainage. Culture so far show evidence of E. coli and staph aureus. The patient has developed acute renal failure and constantly vancomycin will be discontinued since the laboratory is not indicating that the staff is MRSA. Rocephin should be adequate for both pathogens at this time. Local wound care with the silver alginate dressing will be utilized to be changed daily for now. Ideally a negative pressure therapy system will be utilized beginning its location and his obesity is not likely this would be able to be utilized. Possibly could be a candidate for a MANUELITO vac. Will follow the wound healing center after discharge. Final cultures to determine antibiotic options at discharge. Multivitamin with zinc is added Update his tetanus vaccine Current Visit: Yes Status: Acute Code(s): L03.115 - CELLULITIS OF RIGHT LOWER LIMB SNOMED Code(s): 10047991104420867 (4) Hypertensive heart disease Current Visit: Yes Status: Acute Code(s): I11.9 - HYPERTENSIVE HEART DISEASE WITHOUT HEART FAILURE SNOMED Code(s): 95129246
[2019-02-24] MEDS ORDERED: DIPH,PERTUS(ACELL)TETVAC-LF 0.5 ML VIAL IM ONE (21:27)
[2019-02-25] MEDS ORDERED: VANCOMYCIN 2,000 MG in SODIUM CHLORIDE 0.9% 500 ML 500 ML IVPB SCH ×4 (06:00)
[2019-02-25 06:53] LABS: Glucose,Whole Blood 94 mg/dL (75-99)
[2019-02-25] MEDS: INSULIN ASPART (NovoLOG) 100 UNIT/ML VIAL SQ SCH ×4 (07:09→20:57)
[2019-02-25 07:33] LABS: Calcium 9.7 mg/dL (8.4-10.2); Magnesium 1.9 mg/dL (1.6-2.3); Potassium 4.3 mmol/L (3.5-5.1)
[2019-02-25 08:24] VITALS: RESP 16
[2019-02-25] MEDS: MULTIVITAMINS, THERA 1 EACH TAB PO SCH (08:39)
[2019-02-25] MEDS: ASPIRIN 81 MG PO SCH (08:39)
[2019-02-25] MEDS: SODIUM CHLORIDE 0.9% 1,000 ML IV SCH (08:39)
[2019-02-25] MEDS: PANTOPRAZOLE 40 MG TABLET PO SCH (08:39)
[2019-02-25] MEDS: SODIUM FERRIC GLUCONAT-SUCROSE 125 MG in SODIUM CHLORIDE 0.9% 100 ML IVPB SCH (09:31)
[2019-02-25 12:05] LABS: Glucose,Whole Blood 93 mg/dL (75-99)
--- NOTE | 2019-02-25 12:52 | P.PN ---
<Janett Valle - Last Filed: 02/25/19 12:47> Subjective Progress Note Date: 02/25/19 CHIEF COMPLAINT: Cellulitis of right thigh with wound dehiscence HISTORY OF PRESENT ILLNESS: Patient examined at the bedside. He reports his pain is tolerable. Sitting up in the chair. Cultures are positive for e coli and MSSA. He is receiving Rocephin. Creatinine increased today to 1.76. Nephrology following PHYSICAL EXAM: VITAL SIGNS: Currently stable. GENERAL: Well-developed in no acute distress. HEENT: No sclera icterus. Extraocular movements grossly intact. Moist buccal mucosa. Head is atraumatic, normocephalic. Hears conversational speech. No nasal dr ainage. NECK: Supple without lymphadenopathy. CHEST: Non-labored respirations and equal bilateral excursions. CARDIOVASCULAR: Regular rate with regular rhythm. Palpable 2+ radial pulses. ABDOMEN: Soft. Nondistended. Nontender. MUSCULOSKELETAL: No clubbing, cyanosis or edema. NEUROLOGIC: No focal or lateralizing signs. Cranial nerves II through XII grossly intact. PSYCH: Appropriate affect. Alert and oriented to person, place and time. SKIN: Well perfused. Good skin turgor. Dressing to right thigh clean dry intact. ASSESSMENT: 1. Complex right upper thigh complex wound 8 x 5 cm with cellulitis 2. Leukocytosis. 3. Medical noncompliance to post-surgical care 4. Morbid obesity due to excess calories 5. Body mass index of 65.1 6. Osteoarthritis of the left hip. 7. Osteoarthritis of the lower back. 8. Hypertensive heart disease. 9. Gastroesophageal reflux disease 10. Obstructive sleep apnea 11. Diabetes type 2, diet controlled 12. Memory impairment. 13. Acute kidney injury PLAN: 1. Daily dressing changes with opticell silver packed into wound per Dr. Najera 2. Discharge antibiotics per Dr. Najera, await recommendations 3. Monitor kidney function. Repeat in AM. Nephrology following. Nurse practitioner note has been reviewed by physician. Signing provider agrees with the documented findings, assessment, and plan of care. Objective - Vital Signs Vital signs: Vital Signs Temp 98.3 F 02/25/19 07:00 Pulse 75 02/25/19 07:00 Resp 16 02/25/19 07:00 BP 144/81 02/25/19 07:00 Pulse Ox 96 02/25/19 07:00 Intake & Output 02/24/19 02/25/19 02/25/19 18:59 06:59 18:59 Intake Total 708 236 Balance 708 236 Intake: Oral 708 236 Other: Voiding Method Toilet Toilet Urinal Urinal # Voids 2 2 # Bowel Movements 1 - Labs CBC & Chem 7: 02/24/19 07:10 02/25/19 06:46 Labs: Abnormal Lab Results - Last 24 Hours (Table) 02/24/19 02/25/19 Range/Units 20:26 06:46 Chloride 112 H (98-107) mmol/L Carbon Dioxide 21 L (22-30) mmol/L BUN 22 H (9-20) mg/dL Creatinine 1.76 H (0.66-1.25) mg/dL POC Glucose (mg/dL) 104 H (75-99) mg/dL Microbiology - Last 24 Hours (Table) 02/22/19 13:50 Gram Stain - Final Leg - Right Wound Culture - Final Escherichia coli Staphylococcus aureus 02/21/19 14:58 Blood Culture - Preliminary Blood No Growth after 72 hours 02/22/19 13:50 Anaerobic Culture - Preliminary Leg - Right Assessment and Plan (1) BMI 60.0-69.9, adult Current Visit: Yes Status: Acute Code(s): Z68.44 - BODY MASS INDEX (BMI) 60.0-69.9, ADULT SNOMED Code(s): 608241112 (2) Cellulitis and abscess of buttock Current Visit: Yes Status: Acute Code(s): L02.31 - CUTANEOUS ABSCESS OF BUTTOCK; L03.317 - CELLULITIS OF BUTTOCK SNOMED Code(s): 458525274 (3) Cellulitis of right thigh Current Visit: Yes Status: Acute Code(s): L03.115 - CELLULITIS OF RIGHT LOWER LIMB SNOMED Code(s): 01449216681067496 (4) Hypertensive heart disease Current Visit: Yes Status: Acute Code(s): I11.9 - HYPERTENSIVE HEART DISEASE WITHOUT HEART FAILURE SNOMED Code(s): 26476745 (5) Leukocytosis (leucocytosis) Current Visit: Yes Status: Acute Code(s): D72.829 - ELEVATED WHITE BLOOD CELL COUNT, UNSPECIFIED SNOMED Code(s): 829564529 <Breanne Bowers N - Last Filed: 02/25/19 18:45> Subjective As above. PT/OT assessment completed. Creatinine elevated. Await improvement of kidney function for discharge home Objective - Vital Signs Vital signs: Vital Signs Temp 98.6 F 02/25/19 15:00 Pulse 79 02/25/19 15:00 Resp 16 02/25/19 15:00 BP 156/74 02/25/19 15:00 Pulse Ox 94 L 02/25/19 15:00 Intake & Output 02/24/19 02/25/19 02/25/19 18:59 06:59 18:59 Intake Total 708 1086 Balance 708 1086 Intake: IV 850 Sodium Chloride 0.9% 1, 800 000 ml @ 100 mls/hr IV . Q10H MELANI Rx#:[id number] cefTRIAXone 2 gm In 50 Sodium Chloride 0.9% 50 ml @ 100 mls/hr IVPB Q24HR MELANI Rx#:[id number] Oral 708 236 Other: Voiding Method Toilet Toilet Urinal Urinal # Voids 2 2 # Bowel Movements 1 - Labs CBC & Chem 7: 02/24/19 07:10 02/25/19 06:46 Labs: Abnormal Lab Results - Last 24 Hours (Table) 02/24/19 02/25/19 02/25/19 Range/Units 20:26 06:46 17:05 Chloride 112 H (98-107) mmol/L Carbon Dioxide 21 L (22-30) mmol/L BUN 22 H (9-20) mg/dL Creatinine 1.76 H (0.66-1.25) mg/dL POC Glucose (mg/dL) 104 H 106 H (75-99) mg/dL Microbiology - Last 24 Hours (Table) 02/21/19 14:58 Blood Culture - Preliminary Blood No Growth after 96 hours 02/22/19 13:50 Gram Stain - Final Leg - Right Wound Culture - Final Escherichia coli Staphylococcus aureus Assessment and Plan (1) Cellulitis of right thigh Current Visit: Yes Status: Acute Code(s): L03.115 - CELLULITIS OF RIGHT LOWER LIMB SNOMED Code(s): 56721822770830061 (2) Noncompliance of patient with dietary regimen Current Visit: Yes Status: Acute Code(s): Z91.11 - PATIENT'S NONCOMPLIANCE WITH DIETARY REGIMEN SNOMED Code(s): 259020802 (3) Leukocytosis (leucocytosis) Current Visit: Yes Status: Acute Code(s): D72.829 - ELEVATED WHITE BLOOD CELL COUNT, UNSPECIFIED SNOMED Code(s): 413014865 (4) Obstructive sleep apnea (adult) (pediatric) Current Visit: Yes Status: Acute Code(s): G47.33 - OBSTRUCTIVE SLEEP APNEA (ADULT) (PEDIATRIC) SNOMED Code(s): 59634333 (5) Diabetes type 2, controlled Current Visit: Yes Status: Acute Code(s): E11.9 - TYPE 2 DIABETES MELLITUS WITHOUT COMPLICATIONS SNOMED Code(s): 17474957 (6) Morbid obesity due to excess calories Current Visit: Yes Status: Acute Code(s): E66.01 - MORBID (SEVERE) OBESITY DUE TO EXCESS CALORIES SNOMED Code(s): 722267058 (7) BMI 60.0-69.9, adult Current Visit: Yes Status: Acute Code(s): Z68.44 - BODY MASS INDEX (BMI) 60.0-69.9, ADULT SNOMED Code(s): 202052293 (8) Hypertensive heart disease Current Visit: Yes Status: Acute Code(s): I11.9 - HYPERTENSIVE HEART DISEASE WITHOUT HEART FAILURE SNOMED Code(s): 50523170 (9) Memory loss or impairment Current Visit: Yes Status: Acute Code(s): R41.3 - OTHER AMNESIA SNOMED Code(s): 332151712
--- NOTE | 2019-02-25 13:23 | P.PN ---
Subjective Patient is seen in follow-up for acute kidney injury. Baseline creatinine is near 1. Renal function is slightly worse with creatinine at 1.76 today. He has been voiding. Oral intake is good. No vomiting or diarrhea. Vital signs are stable. General: The patient appeared well nourished and normally developed. HEENT: Head exam is unremarkable. Neck is without jugular venous distension. LUNGS: Lungs are clear to auscultation and percussion. Breath sounds decreased. HEART: Rate and Rhythm are regular. First and second heart sounds normal. No murmurs, rubs or gallops. ABDOMEN: Abdominal exam reveals normal bowel sounds. Non-tender and non- distended. No evidence of peritonitis. EXTREMITITES: No clubbing, cyanosis, or edema. Objective - Vital Signs Vital signs: Vital Signs Temp 98.3 F 02/25/19 07:00 Pulse 75 02/25/19 07:00 Resp 16 02/25/19 07:00 BP 144/81 02/25/19 07:00 Pulse Ox 96 02/25/19 07:00 Intake & Output 02/24/19 02/25/19 02/25/19 18:59 06:59 18:59 Intake Total 708 236 Balance 708 236 Intake: Oral 708 236 Other: Voiding Method Toilet Toilet Urinal Urinal # Voids 2 2 # Bowel Movements 1 - Labs CBC & Chem 7: 02/24/19 07:10 02/25/19 06:46 Labs: Abnormal Lab Results - Last 24 Hours (Table) 02/24/19 02/25/19 Range/Units 20:26 06:46 Chloride 112 H (98-107) mmol/L Carbon Dioxide 21 L (22-30) mmol/L BUN 22 H (9-20) mg/dL Creatinine 1.76 H (0.66-1.25) mg/dL POC Glucose (mg/dL) 104 H (75-99) mg/dL Microbiology - Last 24 Hours (Table) 02/22/19 13:50 Gram Stain - Final Leg - Right Wound Culture - Final Escherichia coli Staphylococcus aureus 02/21/19 14:58 Blood Culture - Preliminary Blood No Growth after 72 hours 02/22/19 13:50 Anaerobic Culture - Preliminary Leg - Right Assessment and Plan Plan: Assessment: 1. Acute kidney injury secondary to ATN secondary to nonsteroidals and infection. Baseline creatinine is near 1 and is up to 1.76 today. Urinalysis is benign. Rule out urinary retention. 2. Right thigh abscess maintained on IV antibiotics. Wound culture positive for staph aureus and E. coli. Infectious disease following. 3. Metabolic acidosis secondary to acute kidney injury and IV fluids. Better. 4. Benign hypertension. Controlled. Plan: Hep-Lock IV fluids. Check renal ultrasound. Check bladder scan to rule out underlying urinary retention. Repeat electrolytes in the morning.
--- NOTE | 2019-02-25 13:31 | P.PN ---
Subjective Progress Note Date: 02/25/19 patient was seen and examined. No acute events overnight. Patient with no complaints today. Chest pain, shortness of breath or palpitations. No nausea or vomiting. No fever or chills. He is looking forward to going home. Objective - Vital Signs Vital signs: Vital Signs Temp 98.3 F 02/25/19 07:00 Pulse 75 02/25/19 07:00 Resp 16 02/25/19 07:00 BP 144/81 02/25/19 07:00 Pulse Ox 96 02/25/19 07:00 Intake & Output 02/24/19 02/25/19 02/25/19 18:59 06:59 18:59 Intake Total 708 236 Balance 708 236 Intake: Oral 708 236 Other: Voiding Method Toilet Toilet Urinal Urinal # Voids 2 2 # Bowel Movements 1 - Exam General: [non toxic], [morbid obesity], [appears at stated age] Derm: [warm], [dry] Head: [atraumatic], [normocephalic], [symmetric] Eyes: [EOMI], [no lid lag], [anicteric sclera] Mouth: [no lip lesion], [mucus membranes moist] Cardiovascular: [S1S2 reg], [no murmur] Lungs: [Decreased breath sounds bilateral], [no rhonchi, no rales] , [no accessory muscle use] Abdominal: [soft], [ nontender to palpation], [positive bowel sounds], [no appreciable organomegaly] Ext: [no gross muscle atrophy], [nonpitting bilateral lower extremity edema], [no contractures], [xerosis bilaterally], [wound 10 cm x 5 cm without surrounding erythema, clean, no discharge along the posterior thigh] Neuro: [no focal neuro deficits] Psych: [Alert], [oriented], [appropriate affect] - Labs CBC & Chem 7: 02/24/19 07:10 02/25/19 06:46 Labs: Abnormal Lab Results - Last 24 Hours (Table) 02/24/19 02/25/19 Range/Units 20:26 06:46 Chloride 112 H (98-107) mmol/L Carbon Dioxide 21 L (22-30) mmol/L BUN 22 H (9-20) mg/dL Creatinine 1.76 H (0.66-1.25) mg/dL POC Glucose (mg/dL) 104 H (75-99) mg/dL Microbiology - Last 24 Hours (Table) 02/22/19 13:50 Gram Stain - Final Leg - Right Wound Culture - Final Escherichia coli Staphylococcus aureus 02/21/19 14:58 Blood Culture - Preliminary Blood No Growth after 72 hours 02/22/19 13:50 Anaerobic Culture - Preliminary Leg - Right Assessment and Plan Assessment: Assessment and plan Wound dehiscence surrounding cellulitis Elevated creatinine Prediabetes Morbid obesity with BMI 71 Obstructive sleep apnea GERD Hypertension Wound culture positive staph aureus and E. coli. Blood cultures negative at 72 hours. Plans: Management as per surgery, wet-to-dry dressing changes. Continue Rocephin. I anticipate that patient can probably be discharged home with one oral antibiotic. Follow ID consultation. Creatinine 1.50-1.67-1.76, worsening. Likely secondary to vancomycin and Zosyn. Plans: DC Toradol and lisinopril. Encourage hydration by mouth. Normal saline at 100 mL per hour. Avoid nephrotoxins. Follow nephrology consultation. Point of care glucose 93. Plans: Regular Accu-Cheks. Insulin sliding-scale. Hypoglycemic precautions. Can DC on oral hypoglycemic. Plans: Bariatric diet. Plans: Bring CPAP from home. Plans: Continue Protonix. BP 144/81. Plans: Hold lisinopril due to acute kidney injury. Monitor vitals, adjust medications as necessary. Nephrology on board for acute kidney injury. Plans to observe overnight due to increasing creatinine, repeat BMP in the morning. Likely DC tomorrow as per Surgery. Thank you for this consult. Please call with any additional questions or concerns.
--- NOTE | 2019-02-25 16:33 | US ---
EXAMINATION TYPE: US renals and bladder DATE OF EXAM: 02/25/2019 COMPARISON: NONE CLINICAL HISTORY: robi. ROBI EXAM MEASUREMENTS: Right Kidney: 14.5 x 6.9 x 5.0 cm Left Kidney: 14.9 x 6.9 x 7.6 cm Right Kidney: wnl Left Kidney: wnl Bladder: Not full. Bilateral Jets seen: No There is no evidence for hydronephrosis at this point in time. No nephrolithiasis is seen. No brittney s are identified. IMPRESSION: No evidence of renal mass or obstruction. Urinary bladder empty during the exam.
[2019-02-25 17:17] LABS: Glucose,Whole Blood 106 mg/dL (75-99)
[2019-02-25 20:46] LABS: Glucose,Whole Blood 91 mg/dL (75-99)
[2019-02-26] MEDS: INSULIN ASPART (NovoLOG) 100 UNIT/ML VIAL SQ SCH ×2 (07:11→11:41)
[2019-02-26 07:13] LABS: Glucose,Whole Blood 98 mg/dL (75-99)
[2019-02-26 07:51] VITALS: BP 142/89; PULSE 66; TEMP 98.2
[2019-02-26 07:54] LABS: Calcium 10.1 mg/dL (8.4-10.2); Magnesium 2.1 mg/dL (1.6-2.3); Potassium 4.5 mmol/L (3.5-5.1)
[2019-02-26] MEDS: MULTIVITAMINS, THERA 1 EACH TAB PO SCH (08:52)
[2019-02-26] MEDS: PANTOPRAZOLE 40 MG TABLET PO SCH (08:52)
[2019-02-26] MEDS: ASPIRIN 81 MG PO SCH (08:52)
[2019-02-26] MEDS: SODIUM FERRIC GLUCONAT-SUCROSE 125 MG in SODIUM CHLORIDE 0.9% 100 ML IVPB SCH (09:43)
[2019-02-26 11:50] LABS: Glucose,Whole Blood 95 mg/dL (75-99)
--- NOTE | 2019-02-26 12:19 | P.PN ---
Subjective Patient is seen in follow-up for acute kidney injury. Baseline creatinine is near 1. Renal function is slightly better with creatinine at 1.68 today. He has been voiding. Oral intake is good. No vomiting or diarrhea. Scheduled to go home today. No active complaints at this time. Vital signs are stable. General: The patient appeared well nourished and normally developed. HEENT: Head exam is unremarkable. Neck is without jugular venous distension. LUNGS: Lungs are clear to auscultation and percussion. Breath sounds decreased. HEART: Rate and Rhythm are regular. First and second heart sounds normal. No murmurs, rubs or gallops. ABDOMEN: Abdominal exam reveals normal bowel sounds. Non-tender and non- distended. No evidence of peritonitis. EXTREMITITES: No clubbing, cyanosis, or edema. Objective - Vital Signs Vital signs: Vital Signs Temp 98.2 F 02/26/19 07:00 Pulse 66 02/26/19 07:00 Resp 16 02/26/19 07:00 BP 142/89 02/26/19 07:00 Pulse Ox 98 02/26/19 07:00 Intake & Output 02/25/19 02/26/19 02/26/19 18:59 06:59 18:59 Intake Total 1086 708 Balance 1086 708 Intake: IV 850 Sodium Chloride 0.9% 1, 800 000 ml @ 100 mls/hr IV . Q10H MELANI Rx#:[id number] cefTRIAXone 2 gm In 50 Sodium Chloride 0.9% 50 ml @ 100 mls/hr IVPB Q24HR MELANI Rx#:[id number] Oral 236 708 Other: Voiding Method Toilet # Voids 2 - Labs CBC & Chem 7: 02/24/19 07:10 02/26/19 06:42 Labs: Abnormal Lab Results - Last 24 Hours (Table) 02/25/19 02/26/19 Range/Units 17:05 06:42 Chloride 111 H (98-107) mmol/L BUN 27 H (9-20) mg/dL Creatinine 1.68 H (0.66-1.25) mg/dL POC Glucose (mg/dL) 106 H (75-99) mg/dL Microbiology - Last 24 Hours (Table) 02/21/19 14:58 Blood Culture - Preliminary Blood No Growth after 96 hours 02/22/19 13:50 Gram Stain - Final Leg - Right Wound Culture - Final Escherichia coli Staphylococcus aureus Assessment and Plan Plan: Assessment: 1. Acute kidney injury secondary to ATN secondary to nonsteroidals and infection. Baseline creatinine is near 1 and is up to 1.76 today. Urinalysis is benign. No evidence of urinary retention. No hydronephrosis noted on kidney ultrasound. 2. Right thigh abscess maintained on IV antibiotics. Wound culture positive for staph aureus and E. coli. Infectious disease following. 3. Metabolic acidosis secondary to acute kidney injury and IV fluids. Better. 4. Benign hypertension. Controlled. Plan: Stable to be discharged home from nephrology standpoint. Follow-up outpatient in the next 2 weeks. I advised the patient to avoid nonsteroidals and to take Tylenol if needed for pain.
--- NOTE | 2019-02-26 13:56 | P.DS ---
Providers Date of admission: 02/23/19 15:49 Expected date of discharge: 02/26/19 Attending physician: Breanne Bowers Consults: 02/21/19 15:49 Consult Physician Urgent Consulting Provider: Sasha Pozo Consult Reason/Comments: medical management Do you want consulting provider notified?: Yes 02/24/19 10:19 Consult Physician Routine Consulting Provider: Augustin Najera Consult Reason/Comments: abx rec. Cellulitis of right thigh with wound dehiscence Do you want consulting provider notified?: Yes 02/24/19 12:30 Consult Physician Routine Consulting Provider: Donna Keller Consult Reason/Comments: ROBI on vanco Do you want consulting provider notified?: Yes Primary care physician: Elmo Cantor - Discharge Diagnosis(es) (1) BMI 60.0-69.9, adult Current Visit: Yes Status: Acute (2) Cellulitis and abscess of buttock Current Visit: Yes Status: Acute (3) Cellulitis of right thigh Current Visit: Yes Status: Acute (4) Hypertensive heart disease Current Visit: Yes Status: Acute (5) Leukocytosis (leucocytosis) Current Visit: Yes Status: Acute Hospital Course: 58 year old male status post excision of hemangioma along the right inner thigh. He was last seen in the bariatric center over 2 weeks ago. He had been noncompliant with his care and was asked to be seen at the bariatric center within the last week. He presents with re-open of his wound. He has baseline history of leukocytosis for the last 3 weeks prior to his most recent surgery. He comes in with increased pain and discomfort of his right upper thigh. He has recent diagnosis of diabetes untreated. He now presents with cellulitis of his thigh. He also has been placed on high protein diet. Cultures were taken from his wound on his right thigh. He was receiving Zosyn and Vancomycin per internal medicine during hospitalization. Infectious disease was consulted to evaluate patient during hospitalization. Cultures were positive for E. coli and MSSA. Vancomycin was discontinued due to patients increasing creatinine. Nephrology was consulted for evaluation. US of kidneys performed negative for hydronephrosis. Baseline creatinine 1.0. Creatinine peaked at 1.76. Most recent creatinine 1.68. Infectious disease recommends Ceftin at the time of discharge and opticell packing to wound daily with ABD pad. Patient is stable for discharge home. He is to follow up with Dr. Najera in 1 week in the wound care center. He is also to follow-up wet suit gluer outpatient. Patient provided prescription to have repeat BMP performed in 3 days. Lisinopril discontinued due to ROBI. He was advised to avoid all NSAIDS. Please see EMR for further evaluation. Discharge Diagnosis: 1. Complex right upper thigh complex wound 8 x 5 cm with cellulitis 2. Leukocytosis. 3. Medical noncompliance to post-surgical care 4. Morbid obesity due to excess calories 5. Body mass index of 65.1 6. Osteoarthritis of the left hip. 7. Osteoarthritis of the lower back. 8. Hypertensive heart disease. 9. Gastroesophageal reflux disease 10. Obstructive sleep apnea 11. Diabetes type 2, diet controlled 12. Memory impairment. 13. Acute kidney injury Nurse practitioner note has been reviewed by physician. Signing provider agrees with the documented findings, assessment, and plan of care. Patient Condition at Discharge: Stable Plan - Discharge Summary New Discharge Prescriptions: New Cefuroxime Axetil [Ceftin] 500 mg PO BID #28 tab Acetaminophen Tab [Tylenol Tab] 650 mg PO Q4H PRN #30 tablet PRN Reason: Pain Continue Aspirin [Adult Low Dose Aspirin EC] 81 mg PO DAILY Multivitamins, Thera [Multivitamin (formulary)] 1 tab PO DAILY Omeprazole 40 mg PO DAILY #14 capsule. Discontinued Lisinopril 40 mg PO DAILY Ibuprofen [Motrin] 600 mg PO Q8HR PRN #30 tab PRN Reason: Pain Discharge Medication List Aspirin [Adult Low Dose Aspirin EC] 81 mg PO DAILY 09/13/17 [History] Multivitamins, Thera [Multivitamin (formulary)] 1 tab PO DAILY 11/10/18 [History] Omeprazole 40 mg PO DAILY #14 capsule. 11/10/18 [Rx] Acetaminophen Tab [Tylenol Tab] 650 mg PO Q4H PRN #30 tablet 02/26/19 [Rx] Cefuroxime Axetil [Ceftin] 500 mg PO BID #28 tab 02/26/19 [Rx] Follow up Appointment(s)/Referral(s): Breanne Bowers MD [STAFF PHYSICIAN] - 03/04/19 3:15 pm [facility] [NON-STAFF] - 03/10/19 1:30 pm (With Dr Gal Goldberg DO [STAFF PHYSICIAN] - 05/08/19 11:20 am Elmo Cantor MD [Primary Care Provider] - 03/03/19 11:30 am Ambulatory/Diagnostic Orders: Basic Metabolic Panel [LAB.AMB] Time Frame: 3 Days, Location: None Selected Patient Instructions/Handouts: Abscess Incision and Drainage (ED) Activity/Diet/Wound Care/Special Instructions: Opticell silver packing into wound daily. cover with ABD and secure No Aleve, naproxen, motrin, or ibuprofen
--- NOTE | 2019-02-26 22:34 | P.PN ---
Subjective Progress Note Date: 02/26/19 58-year-old male who has superobesity was having difficulty with a chronic ulceration to the posterior aspect of his right thigh and was seen by surgery. Because the chronic nature of the disease in the depth to it was taken the operating room and the site was incised and drained. Pathology revealed evidence of a cavernous hemangioma with no evidence of malignancy or other pathology. The wound is oozing Dehisced and has remained open. He was not feeling well either and constantly has been admitted for further evaluation of this infected area. With concerns the infectious diseases consultation was requested. Patient also has evidence of acute renal insufficiency and nephr ology consult has been obtained also. The patient does not relate to high-grade fever, chills or rigors. He has not had difficulties like this in the past. 02/26/2019 patient is now doing considerably better. Renal failure is improving. Pain is improved. Cultures are available. He is ready for discharge to home. Other new acute complaints. Objective - Vital Signs Vital signs: Vital Signs Temp 98.2 F 02/26/19 07:00 Pulse 66 02/26/19 07:00 Resp 16 02/26/19 07:00 BP 142/89 02/26/19 07:00 Pulse Ox 98 02/26/19 07:00 Intake & Output 02/26/19 02/26/19 02/27/19 06:59 18:59 06:59 Intake Total 708 Balance 708 Intake: Oral 708 Other: Voiding Method Toilet # Voids 2 - Exam Pleasant 58-year-old male who has superobesity HEENT: Anicteric conjunctiva are pink and moist nasal mucosa grossly intact without significant lesions, there is no thrush. Neck: The neck is supple without significant lymphadenopathy or thyromegaly. Lungs: Good bilateral air entry without significant crackles only few wheezes are heard. There is no significant bronchial sounds. There is no egophony or dullness. Heart: Regular rate and rhythm with an audible S1-S2, S4. There is no significant murmur click or rub, PMI was nondisplaced. Abdomen: Obese, Positive bowel sounds soft and nontender without palpable masses or organomegaly. There was no guarding or rebound. Extremities: The upper extremities have excellent pulses they are symmetric, no significant petechiae or telangiectasia. No splinter hemorrhages were noted. The lower extremities have evidence of the chronic edema, chronic lipedema. There is evidence of the ulceration to the right posterior thigh, please see the nursing photography, does have some significant depth. There is surrounding erythema. But is no ascending lymphadenitis Neuro: Awake alert oriented to person place and time. There are no acute new gross focal sensory motor deficits. - Labs CBC & Chem 7: 02/24/19 07:10 02/26/19 06:42 Labs: Abnormal Lab Results - Last 24 Hours (Table) 02/26/19 Range/Units 06:42 Chloride 111 H (98-107) mmol/L BUN 27 H (9-20) mg/dL Creatinine 1.68 H (0.66-1.25) mg/dL Microbiology - Last 24 Hours (Table) 02/21/19 14:58 Blood Culture - Preliminary Blood No Growth after 120 hours Laboratory Results WBC 10.5 k/uL (3.8-10.6) 02/24/19 07:10 RBC 4.53 m/uL (4.30-5.90) 02/24/19 07:10 Hgb 13.1 gm/dL (13.0-17.5) 02/24/19 07:10 Hct 41.4 % (39.0-53.0) 02/24/19 07:10 MCV 91.4 fL (80.0-100.0) 02/24/19 07:10 MCH 29.0 pg (25.0-35.0) 02/24/19 07:10 MCHC 31.8 g/dL (31.0-37.0) 02/24/19 07:10 RDW 14.8 % (11.5-15.5) 02/24/19 07:10 Plt Count 245 k/uL (150-450) 02/24/19 07:10 Neutrophils % 69 % 02/24/19 07:10 Lymphocytes % 14 % 02/24/19 07:10 Monocytes % 8 % 02/24/19 07:10 Eosinophils % 5 % 02/24/19 07:10 Basophils % 1 % 02/24/19 07:10 Neutrophils # 7.3 k/uL (1.3-7.7) 02/24/19 07:10 Lymphocytes # 1.5 k/uL (1.0-4.8) 02/24/19 07:10 Monocytes # 0.9 k/uL (0-1.0) 02/24/19 07:10 Eosinophils # 0.6 k/uL (0-0.7) 02/24/19 07:10 Basophils # 0.1 k/uL (0-0.2) 02/24/19 07:10 Hypochromasia Slight 02/24/19 07:10 Sodium 145 mmol/L (137-145) 02/26/19 06:42 Potassium 4.5 mmol/L (3.5-5.1) 02/26/19 06:42 Chloride 111 mmol/L (98-107) H 02/26/19 06:42 Carbon Dioxide 26 mmol/L (22-30) 02/26/19 06:42 Anion Gap 8 mmol/L 02/26/19 06:42 BUN 27 mg/dL (9-20) H 02/26/19 06:42 Creatinine 1.68 mg/dL (0.66-1.25) H 02/26/19 06:42 Est GFR (CKD-EPI)AfAm 52 (>60 ml/min/1.73 sqM) 02/26/19 06:42 Est GFR (CKD-EPI)NonAf 45 (>60 ml/min/1.73 sqM) 02/26/19 06:42 Glucose 94 mg/dL (74-99) 02/26/19 06:42 POC Glucose (mg/dL) 95 mg/dL (75-99) 02/26/19 11:39 POC Glu [employer] Program Chair ID Candida Bell 02/26/19 11:[address] Glu mg/dL 117 02/22/19 06:43 Hemoglobin A1c 5.7 % (4.0-6.0) 02/22/19 06:43 Plasma Lactic Acid [place] 1.9 mmol/L (0.7-2.0) 02/21/19 14:58 Calcium 10.1 mg/dL (8.4-10.2) 02/26/19 06:42 Magnesium 2.1 mg/dL (1.6-2.3) 02/26/19 06:42 Total Bilirubin 0.6 mg/dL (0.2-1.3) 02/21/19 14:58 AST 45 U/L (17-59) 02/21/19 14:58 ALT 44 U/L (21-72) 02/21/19 14:58 Alkaline Phosphatase 59 U/L (38-126) 02/21/19 14:58 Total Protein 8.3 g/dL (6.3-8.2) H 02/21/19 14:58 Albumin 4.6 g/dL (3.5-5.0) 02/21/19 14:58 Urine Color Light Yellow 02/24/19 15:00 Urine Appearance Clear (Clear) 02/24/19 15:00 Urine pH 5.0 (5.0-8.0) 02/24/19 15:00 Ur Specific [place] 1.008 (1.001-1.035) 02/24/19 15:00 Urine Protein Negative (Negative) 02/24/19 15:00 Urine Glucose (UA) Negative (Negative) 02/24/19 15:00 Urine Ketones Negative (Negative) 02/24/19 15:00 Urine Blood Negative (Negative) 02/24/19 15:00 Urine Nitrite Negative (Negative) 02/24/19 15:00 Urine Bilirubin Negative (Negative) 02/24/19 15:00 Urine Urobilinogen <2.0 mg/dL (<2.0) 02/24/19 15:00 Ur Leukocyte Esterase Negative (Negative) 02/24/19 15:00 Vancomycin Trough 17.4 ug/mL 02/25/19 06:46 Microbiology 02/21/19 14:58 Blood Blood Culture - Preliminary No Growth after 120 hours 02/22/19 13:50 Leg - Right Gram Stain - Final 02/22/19 13:50 Leg - Right Wound Culture - Final Escherichia coli Staphylococcus aureus 02/22/19 13:50 Leg - Right Anaerobic Culture - Preliminary Assessment and Plan (1) Morbid obesity due to excess calories Status: Acute Code(s): E66.01 - MORBID (SEVERE) OBESITY DUE TO EXCESS CALORIES SNOMED Code(s): 445340518 (2) Large cavernous hemangioma Status: Acute Code(s): D18.09 - HEMANGIOMA OF OTHER SITES SNOMED Code(s): 236200125 (3) Cellulitis of right thigh Narrative/Plan: 58 -year-old male presents to hospital with increasing pain and draina ge and odor to his right posterior thigh. There is evidence of a chronic ulcerative lesion and he was taken gapping room and this was incised and drained. A large cavernous hemangioma was found and it was closed. The wound now has dehisced and there is evidence of a secondary infection some foul drainage. Culture so far show evidence of E. coli and staph aureus. The patient has developed acute renal failure and constantly vancomycin will be discontinued since the laboratory is not indicating that the staff is MRSA. Rocephin should be adequate for both pathogens at this time. Local wound care with the silver alginate dressing will be utilized to be changed daily for now. Ideally a negative pressure therapy system will be utilized beginning its location and his obesity is not likely this would be able to be utilized. Possibly could be a candidate for a MANUELITO vac. Will follow the wound healing center after discharge. Final cultures to determine antibiotic options at discharge. Multivitamin with zinc is added Update his tetanus vaccine 02/26/2019 now improved,ready for discharge, culture with MSSA and Ecoli and ceftin sent to pharmacy follow in [facility] Status: Acute Code(s): L03.115 - CELLULITIS OF RIGHT LOWER LIMB SNOMED Code(s): 90122008352554602 (4) Hypertensive heart disease Status: Acute Code(s): I11.9 - HYPERTENSIVE HEART DISEASE WITHOUT HEART FAILURE SNOMED Code(s): 47536272
--- NOTE | 2019-02-27 10:52 | CDI ---
Documentation Clarification Form Date: 02/27/2019 From: Hannah Mario Phone: If questions call Laurel Echeverria @ [phone], Hours-8:30 am & 5 pm M- F Admit Date: 02/23/2019 3:49:00 PM Patient Name: Bryan Ferrell Visit Number: [id number] Discharge Date: 02/26/2019 1:50:00 PM ATTENTION: The Clinical Documentation Specialists (CDI) and [facility] Coding Staff appreciate your assistance in clarifying documentation. Please respond to the clarification below the line at the bottom and electronically sign. The CDI & [facility] Coding staff will review the response and follow-up if needed. Please note: Queries are made part of the Legal Health Record. If you have any questions, please contact the author of this message via ITS. Dr. Breanne Bowers The patient presented with the following wound dehiscence and sepsis secondary to cellulitis.He is s/p excison of hemangioma right inner thigh in a previous admission. History/Risk Factors: DM, ATN, morbid obesity, BMI 71.0 Treatment: IV Vanco In your professional opinion, can you please clarify if the sepsis & cellulitis? Postop surgical infection Sepsis Other, please specify ____XX____ Unable to determine Wound dehiscence complicated with cellulitis and wound infection NOT postoperative surgical site infection 03/16/19 18:35 MTDD
--- NOTE | 2019-03-18 11:20 | CDI ---
Documentation Clarification Form Date: 03/18/19 From: Hannah Mario Phone: If questions call Laurel Echeverria @ [phone], Hours-8:30 am & 5 pm M- F Admit Date: 02/23/2019 3:49:00 PM Patient Name: Bryan Ferrell Visit Number: [id number] Discharge Date: 02/26/2019 1:50:00 PM ATTENTION: The Clinical Documentation Specialists (CDI) and [facility] Coding Staff appreciate your assistance in clarifying documentation. Please respond to the clarification below the line at the bottom and electronically sign. The CDI & [facility] Coding staff will review the response and follow-up if needed. Please note: Queries are made part of the Legal Health Record. If you have any questions, please contact the author of this message via ITS. Dr. Breanne Bowers The diagnosis sepsis was documented in the H&P & 02/22 PN, but is not consistently noted in subsequent documentation. History/Risk Factors: disruption of op wound, cellulitis/abscess of right thigh Clinical Indicators: WBV 1806, Neutrophils 15.6, lactic acid 1.9, P 101, R 18, BP 101/67 Treatment: IV fluids, IV Vanco, IV Zoysn Please clarify if the sepsis was: Present/active/treated this admission Ruled out Other, please specify (see below) Clinically unable to determine H&P and SOAP referrenced above by medicine team is inacurrate. Medicine is NOT the admitting provider for this patient. Patient was admitted to surgery where H&P from surgery is accurate. PATIENT DID NOT HAVE SEPSIS...labs falsely elevated secondary to dehydration, he was afebrile. Please also review notes from infectious disease provider, Dr. Najera, that also supports NO presence of sepsis. KM 03/18/19 17:21 MTDD
== END 2019-02-26 13:50 | disposition home health service (06) | DRG 602 ==
LOC: EC 13:20 → 4SSUR 14:43 → OBSVTOIN 02-23 15:49
PROVIDERS: ADMIT Surgery Plastic and Reconstructive Surgery; ATTEND Surgery Plastic and Reconstructive Surgery
PROC: 5A09457 Assistance with Respiratory Ventilation, 24-96 Consecutive Hours, Continuous Positive Airway Pressure (ICD-10-PCS; principal; 2019-02-22)
PROC: 3E0234Z Introduction of Serum, Toxoid and Vaccine into Muscle, Percutaneous Approach (ICD-10-PCS; 2019-02-24)
DX: L03.115 Cellulitis of right lower limb (principal); N17.0 Acute kidney failure with tubular necrosis; T81.31XA Disruption of external operation (surgical) wound, not elsewhere classified, initial encounter; E87.2 Acidosis; Z68.45 Body mass index [BMI] 70 or greater, adult; L02.415 Cutaneous abscess of right lower limb; E66.01 Morbid (severe) obesity due to excess calories; E87.5 Hyperkalemia; E11.9 Type 2 diabetes mellitus without complications; B96.20 Unspecified Escherichia coli [E. coli] as the cause of diseases classified elsewhere; I11.9 Hypertensive heart disease without heart failure; Z23 Encounter for immunization; B95.61 Methicillin susceptible Staphylococcus aureus infection as the cause of diseases classified elsewhere; T39.395A Adverse effect of other nonsteroidal anti-inflammatory drugs [NSAID], initial encounter; T36.8X5A Adverse effect of other systemic antibiotics, initial encounter; M16.12 Unilateral primary osteoarthritis, left hip; M47.9 Spondylosis, unspecified; K21.9 Gastro-esophageal reflux disease without esophagitis; G47.33 Obstructive sleep apnea (adult) (pediatric); Z91.11 Patient's noncompliance with dietary regimen; Z79.82 Long term (current) use of aspirin; Z79.899 Other long term (current) drug therapy; Z99.89 Dependence on other enabling machines and devices; Z98.890 Other specified postprocedural states
CPT/HCPCS: 36415; 76770; 80048; 80053; 80202; 81003; 83036; 83605; 83735; 85025; 87040; 87070; 87075; 87077; 87186; 87205; 90715; 96374; 99284

== ENCOUNTER 2024-06-25 23:06 | Inpatient (IN) | payer MEDICARE ==
[2024-06-25] MEDS: SODIUM CHLORIDE 0.9% 1,000 ML IV STA (23:40)
--- NOTE | 2024-06-25 23:41 | ED ---
General Adult HPI - General Stated complaint: Weakness Time Seen by Provider: 06/25/24 23:08 Source: EMS - History of Present Illness Initial comments: Bryan is a 63-year-old gentleman who was brought to the ER today by ambulance. Patient reports that prior to arrival he developed nausea vomiting and diarrhea. Patient states he thinks this was only going on about an hour prior to calling the ambulance. Patient denies sick contacts. Denies fevers or chills. Denies suspicious food intake. Reports he was recently hospitalized at an outside hospital for over 60 days. States patient states that yesterday he was discharged back to his home he was only home for a number of hours before having this episode. - Related Data Home Medications Medication Instructions Recorded Confirmed Aspirin [Adult Low Dose Aspirin EC] 81 mg PO DAILY 09/13/17 02/21/19 Multivitamins, Thera [Multivitamin 1 tab PO DAILY 11/10/18 02/21/19 (formulary)] Previous Rx's Medication Instructions Recorded Omeprazole 40 mg PO DAILY #14 capsule. 11/10/18 Acetaminophen Tab [Tylenol Tab] 650 mg PO Q4H PRN #30 tablet 02/26/19 cefuroxime axetiL [Ceftin] 500 mg PO BID #28 tab 02/26/19 Allergies Allergy/AdvReac Type Severity Reaction Status Date / Time bee venom protein (honey bee) Allergy Anaphylaxis Verified 06/25/24 23:20 Review of Systems ROS Statement: Those systems with pertinent positive or pertinent negative responses have been documented in the HPI. ROS Other: All systems not noted in ROS Statement are negative. Past Medical History Past Medical History: GERD/Reflux, Hypertension, Sleep Apnea/CPAP/BIPAP Additional Past Medical History / Comment(s): USES C-PAP MACHINE History of Any Multi-Drug Resistant Organisms: None Reported Past Surgical History: Hernia Repair Additional Past Surgical History / Comment(s): 02/05/19: Right leg ulcer/abcess removed by Dr. Bowers Past Anesthesia/Blood Transfusion Reactions: Motion Sickness Past Psychological History: No Psychological Hx Reported Past Alcohol Use History: Rare - Past Family History Mother Family Medical History: No Reported History General Exam - General Exam Comments Initial Comments: Physical Exam GENERAL: Morbidly obese, appears dehydrated HENT: Normocephalic, Atraumatic. EYES: PERRL, EOMI PULMONARY: Unlabored respirations. CARDIOVASCULAR: Tachycardic, regular ABDOMEN: Non-distended SKIN: Skin breakdown in abdominal folds, thigh folds No sacral decub : Deferred NEUROLOGIC: Alert and oriented Normal speech MUSCULOSKELETAL: Moving all extremities with no apparent injury Course Vital Signs 06/25/24 06/25/24 06/26/24 23:15 23:45 00:00 Temperature 98.4 F Pulse Rate 105 H 101 H 96 Respiratory 24 15 23 Rate Blood Pressure 86/36 84/45 89/54 O2 Sat by Pulse 95 2 L 96 Oximetry 06/26/24 06/26/24 06/26/24 00:15 00:30 01:00 Temperature Pulse Rate 97 92 98 Respiratory 10 L 17 15 Rate Blood Pressure 95/56 103/58 90/58 O2 Sat by Pulse 97 93 L 93 L Oximetry 06/26/24 06/26/24 06/26/24 01:59 03:00 04:00 Temperature 97.7 F Pulse Rate 98 101 H 104 H Respiratory 18 16 16 Rate Blood Pressure 90/62 122/64 124/67 O2 Sat by Pulse 97 98 96 Oximetry 06/26/24 06/26/24 05:00 06:00 Temperature Pulse Rate 101 H 103 H Respiratory 21 19 Rate Blood Pressure 127/71 127/73 O2 Sat by Pulse 96 97 Oximetry EKG Findings - EKG Comments: EKG Findings:: EKG obtained due to tachycardia EKG obtained 2324 rate is 1 1 rhythm sinus tach normal axis normal intervals [place] 180 QRS 73 QTc 375 there are no acute ST elevations depressions no evidence of ischemia or infarction. Medical Decision Making - Medical Decision Making Was pt. sent in by a medical professional or institution (Dr. PA, SHOE DYER, urgent care, hospital, or [place] health care facility...) When possible be specific @ -No Did you speak to anyone other than the patient for history (EMS, parent, family, police, friend...)? What history was obtained from this source @ -EMS Did you review nursing and triage notes (agree or disagree)? Why? @ -I reviewed and agree with nursing and triage notes Were old charts reviewed (outside hosp., previous admission, EMS record, old EKG, old radiological studies, urgent care reports/EKG's, [place] health care facility records)? Report findings @ -No old charts were reviewed Differential Diagnosis (chest pain, altered mental status, abdominal pain women, abdominal pain men, vaginal bleeding, weakness, fever, dyspnea, syncope, headache, dizziness, GI bleed, back pain, seizure, CVA, palpatations, mental health)? @ -Differential Abdominal Pain Men: Appendicitis, cholecystitis, diverticulosis, ischemic bowel, pancreatitis, hepatitis, UTI, gastroenteritis, AAA, incarcerated hernia, bowel obstruction, constipation, inflammatory bowel, hepatitis, peptic ulcer disease, splenic infarction, perforated viscus, testicular torsion, this is not meant to be an all-inclusive list EKG interpreted by me (3pts min.). @ -As above X-rays interpreted by me (1pt min.). @ -None done CT interpreted by me (1pt min.). @ -None done U/S interpreted by me (1pt. min.). @ -None done What testing was considered but not performed or refused? (CT, X-rays, U/S, labs)? Why? @ -None What meds were considered but not given or refused? Why? @ -None Did you discuss the management of the patient with other professionals (professionals i.e. , PA, SHOE DYER, lab, RT, psych nurse, social media content specialist, sexologist, teacher, financial services officer, family service caseworker)? Give summary @ -Chest with Dr. Phipps admitting provider Was smoking cessation discussed for >3mins.? @ -No Was critical care preformed (if so, how long)? @ -No Were there social determinants of health that impacted care today? How? (Homelessness, low income, unemployed, alcoholism, drug addiction, transportation, low edu. Level, literacy, decrease access to med. care, skilled nursing, rehab)? @ -No Was there de-escalation of care discussed even if they declined (Discuss DNR or withdrawal of care, Hospice)? DNR status @ -No What co-morbidities impacted this encounter? (DM, HTN, Smoking, COPD, CAD, Cancer, CVA, ARF, Chemo, Hep., AIDS, mental health diagnosis, sleep apnea, morbid obesity)? @ -Morbid obesity Was patient admitted / discharged? Hospital course, mention meds given and route, prescriptions, significant lab abnormalities, going to OR and other pertinent info. @ -Admit The patient was seen and evaluated. Upon arrival patient is having diffuse watery diarrhea and projectile vomitus. He is hypotensive and mildly tachycardic. Labs were obtained patient has profound leukocytosis with a white count in the 20s as well as a lactic of 12.0. Patient was given IV fluids he was cleaned up placed in clean bed. Patient's blood pressure improving with IV fluids heart rate improving, CT of the abdomen was obtained patient will be admitted regardless of results. Patient care was discussed with his primary care doctor his daughter who accepts the admission. Undiagnosed new problem with uncertain prognosis? @ -No Drug Therapy requiring intensive monitoring for toxicity (Heparin, Nitro, Insulin, Cardizem)? @ -No Were any procedures done? @ -No Diagnosis/symptom? @ -Sepsis, hypovolemia, leukocytosis, lactic acidosis Acute, or Chronic, or Acute on Chronic? @ -Acute Uncomplicated (without systemic symptoms) or Complicated (systemic symptoms)? @ -Default Side effects of treatment? @ -No Exacerbation, Progression, or Severe Exacerbation? @ -No Poses a threat to life or bodily function? How? (Chest pain, [place], [place], pneumonia, PE, COPD, DKA, ARF, appy, cholecystitis, CVA, Diverticulitis, Homicidal, Suicidal, threat to staff... and all critical care pts) @ -Yes - Lab Data Result diagrams: 06/25/24 23:27 06/25/24 23:27 Lab Results 06/25/24 06/25/24 06/25/24 Range/Units 23:27 23:27 23:27 WBC 28.8 H (3.8-10.6) k/uL RBC 4.93 (4.30-5.90) m/uL Hgb 13.5 (13.0-17.5) gm/dL Hct 43.6 (39.0-53.0) % MCV 88.5 (80.0-100.0) fL MCH 27.4 (25.0-35.0) pg MCHC 30.9 L (31.0-37.0) g/dL RDW 14.0 (11.5-15.5) % Plt Count 483 H (150-450) k/uL MPV 8.5 Neutrophils % 88 % Lymphocytes % 7 % Monocytes % 4 % Eosinophils % 0 % Basophils % 1 % Neutrophils # 25.2 H (1.3-7.7) k/uL Lymphocytes # 2.0 (1.0-4.8) k/uL Monocytes # 1.2 H (0-1.0) k/uL Eosinophils # 0.1 (0-0.7) k/uL Basophils # 0.1 (0-0.2) k/uL Manual Slide Review Performed Hypochromasia Slight Sodium 138 (137-145) mmol/L Potassium 4.4 (3.5-5.1) mmol/L Chloride 107 (98-107) mmol/L Carbon Dioxide 8 L* (22-30) mmol/L Anion Gap 23 mmol/L BUN 30 H (9-20) mg/dL Creatinine 2.64 H (0.66-1.25) mg/dL Est GFR (CKD-EPI)AfAm 29 (>60 ml/min/1.73 sqM) Est GFR (CKD-EPI)NonAf 25 (>60 ml/min/1.73 sqM) Glucose 161 H (74-99) mg/dL Lactic Ac Sepsis Rflx Plasma Lactic Acid [place] 12.0 H* (0.7-2.0) mmol/L Calcium 10.0 (8.4-10.2) mg/dL Magnesium 2.6 H (1.6-2.3) mg/dL Total Bilirubin 0.4 (0.2-1.3) mg/dL AST 34 (17-59) U/L ALT 32 (4-49) U/L Alkaline Phosphatase 87 (38-126) U/L Total Protein 7.4 (6.3-8.2) g/dL Albumin 3.8 (3.5-5.0) g/dL Lipase 280 (23-300) U/L C. difficile (EIA) Intrp (Negative) 06/26/24 06/26/24 06/26/24 Range/Units 00:07 02:08 03:16 WBC (3.8-10.6) k/uL RBC (4.30-5.90) m/uL Hgb (13.0-17.5) gm/dL Hct (39.0-53.0) % MCV (80.0-100.0) fL MCH (25.0-35.0) pg MCHC (31.0-37.0) g/dL RDW (11.5-15.5) % Plt Count (150-450) k/uL MPV Neutrophils % % Lymphocytes % % Monocytes % % Eosinophils % % Basophils % % Neutrophils # (1.3-7.7) k/uL Lymphocytes # (1.0-4.8) k/uL Monocytes # (0-1.0) k/uL Eosinophils # (0-0.7) k/uL Basophils # (0-0.2) k/uL Manual Slide Review Hypochromasia Sodium (137-145) mmol/L Potassium (3.5-5.1) mmol/L Chloride (98-107) mmol/L Carbon Dioxide (22-30) mmol/L Anion Gap mmol/L BUN (9-20) mg/dL Creatinine (0.66-1.25) mg/dL Est GFR (CKD-EPI)AfAm (>60 ml/min/1.73 sqM) Est GFR (CKD-EPI)NonAf (>60 ml/min/1.73 sqM) Glucose (74-99) mg/dL Lactic Ac Sepsis Rflx Y Plasma Lactic Acid [place] 2.0 (0.7-2.0) mmol/L Calcium (8.4-10.2) mg/dL Magnesium (1.6-2.3) mg/dL Total Bilirubin (0.2-1.3) mg/dL AST (17-59) U/L ALT (4-49) U/L Alkaline Phosphatase (38-126) U/L Total Protein (6.3-8.2) g/dL Albumin (3.5-5.0) g/dL Lipase (23-300) U/L C. difficile (EIA) Intrp Negative (Negative) Disposition Clinical Impression: Dehydration, Leukocytosis (leucocytosis), Morbid obesity due to excess calories, BMI 60.0-69.9, adult Disposition: ADMITTED IP TO THIS HOSP Condition: Serious Is patient prescribed a controlled substance at d/c from ED?: No Referrals: Jone Gregorio MD [Primary Care Provider] - 1-2 days
[2024-06-25 23:48] LABS: AST 34 U/L (17-59); African American GFR (CKD) 29 (>60 ml/min/1.73 sqM); Albumin 3.8 g/dL (3.5-5.0); Alkaline Phosphatase 87 U/L (38-126); Anion Gap 23 mmol/L; Blood Urea Nitrogen 30 mg/dL (9-20); Chloride 107 mmol/L (98-107); Glucose 161 mg/dL (74-99); Lipase 280 U/L (23-300); Magnesium 2.6 mg/dL (1.6-2.3); Non-African American GFR(CKD) 25 (>60 ml/min/1.73 sqM); Potassium 4.4 mmol/L (3.5-5.1); Sodium 138 mmol/L (137-145); Total Bilirubin 0.4 mg/dL (0.2-1.3); Total Protein 7.4 g/dL (6.3-8.2)
[2024-06-25 23:55] LABS: ALT 32 U/L (4-49)
[2024-06-26 00:07] LABS: Carbon Dioxide 8 mmol/L (22-30)
[2024-06-26 00:43] LABS: Basophils # (A) 0.1 k/uL (0-0.2); Basophils % (A) 1 %; Eosinophils # (A) 0.1 k/uL (0-0.7); Eosinophils % (A) 0 %; HCT 43.6 % (39.0-53.0); HGB 13.5 gm/dL (13.0-17.5); Hypochromasia Slight; Lymphocytes % (A) 7 %; MCH 27.4 pg (25.0-35.0); MCHC 30.9 g/dL (31.0-37.0); MCV 88.5 fL (80.0-100.0); Mean Platelet Volume 8.5; Monocytes # (A) 1.2 k/uL (0-1.0); Monocytes % (A) 4 %; Neutrophils # (A) 25.2 k/uL (1.3-7.7); Neutrophils % (A) 88 %; Platelet Count 483 k/uL (150-450); RBC 4.93 m/uL (4.30-5.90); WBC 28.8 k/uL (3.8-10.6)
[2024-06-26] MEDS: SODIUM CHLORIDE 0.9% 2,000 ML IV ONE (01:47)
[2024-06-26] MEDS: ONDANSETRON 4 MG/2 ML VIAL IVP STA (01:51)
[2024-06-26] MEDS: fentaNYL (PF) 50 MCG/ML 2 ML AMP IVP ONE (03:34)
[2024-06-26] MEDS: SODIUM CHLORIDE 0.9% 1,000 ML IV SCH (03:35)
[2024-06-26] MEDS ORDERED: NALOXONE 0.4 MG/ML 1 ML VIAL IV PRN (06:19)
[2024-06-26] MEDS: MORPHINE SULFATE 4 MG/ML SYRINGE IV PRN (06:48)
--- NOTE | 2024-06-26 08:08 | CT ---
EXAMINATION TYPE: CT abdomen pelvis wo con DATE OF EXAM: 06/26/2024 4:55 AM COMPARISON: None. CLINICAL INDICATION: Male, 63 years old with history of abdominal pain, leukocytosis, Patient present s to ED via EMS with nausea/vomiting/diarrhea and weakness. Per EMS patient was found in his bathroom and was too weak to get up. TECHNIQUE: Axial images with sagittal coronal reformats. Examination of the solid and hollow viscera is limited given the lack of contrast. CT DLP: 5097.7 mGycm, Automated exposure control for dose reduction was used. FINDINGS: LUNG BASES: No evidence for nodule. No evidence for infiltrate. Focal calcification of the liver. LIVER/GB: The gallbladder is unremarkable. No space-occupying hepatic lesion. PANCREAS: No pancreatic mass identified. No inflammatory process seen. SPLEEN: No evidence for splenomegaly. No intrasplenic lesions seen. ADRENALS: Fat-containing lesion left adrenal gland measures 2.1 cm and may reflect adenoma or small m yelolipoma. No evidence for thickening. KIDNEYS: No nephrolithiasis. No hydronephrosis. BOWEL: Appendix has a normal appearance. No evidence of bowel obstruction. No inflammatory process. L inear high density seen within the rectum is of uncertain etiology. Could reflect rectal catheter. Co rrelate clinically. Lymph nodes: No evidence for adenopathy greater than 1 cm. Abdominal aorta: Atheromatous changes seen. No evidence for aneurysm. Genital organs: No significant abnormality. Other: Fat-containing umbilical hernia. IMPRESSION: NO DEFINITE ACUTE PROCESS SEEN TO ACCOUNT FOR THE PATIENT'S SYMPTOMS. [facility], , 06/26/2024 8:05 AM
[2024-06-26] MEDS: PANTOPRAZOLE 40 MG/10 ML VIAL IV SCH (09:21)
[2024-06-26] MEDS: NYSTATIN 100,000UNIT/GM CREAM 30 GM TUBE TOPICAL SCH (10:02)
[2024-06-26] MEDS: NYSTATIN 100,000 UNIT/GM POWD 15 GM TOPICAL SCH (10:02)
--- NOTE | 2024-06-26 11:21 | P.GSCN ---
History of Present Illness Consult date: 06/26/24 History of present illness: CHIEF COMPLAINT: Nausea vomiting and diarrhea HISTORY OF PRESENT ILLNESS: This is a 63-year-old male who presented to the hospital with complaints of nausea, vomiting and diarrhea that started yesterday. Patient has been at [facility] for the past 3 weeks for rehab. Prior to that he was at [facility] for about a week for wound care and had debridement on a buttock wound. Family is at bedside they report their dad was home for only a few hours and had significant amount of diarrhea and vomiting. He passed out at home. The son did report patient had twitching of his leg and arm and had been staring off with concerns for possible seizure. Patient has no prior seizure activity. Stool for C. difficile was negative. CAT scan was negative for any acute findings. And his white count was elevated at 28 and lactic acid elevated at 12 which did improve with IV fluids. He was also mildly tachycardic. Patient was having a significant amount of diarrhea and had a fecal management system placed. There is no reports of any blood in the stools or black stools. No blood in the emesis either. Family reports last colonoscopy was about 6 years ago and was unremarkable. Patient denies any abdominal pain. Patient denies any sick contacts. PAST MEDICAL HISTORY: GERD/Reflux, Hypertension, Sleep Apnea/CPAP/BIPAP, morbid obesity PAST SURGICAL HISTORY: See list. MEDICATIONS: See list. ALLERGIES: See list. SOCIAL HISTORY: No illicit drug use. REVIEW OF SYSTEMS: CONSTITUTIONAL: Denies fever or chills. HEENT: Denies blurred vision, vision changes, or eye pain. Denies hemoptysis ENDOCRINE: Denies heat or cold intolerance. CARDIOVASCULAR: Denies chest pain or pressure. RESPIRATORY: No shortness of breath. GASTROINTESTINAL: Denies abdominal pain. Denies nausea or vomiting. NEURO: Denies history of seizures. PSYCH: No depression or suicidal ideation HEMATOLOGIC: Denies bleeding disorders. LYMPHATIC: The patient denies any lumps and bumps around the neck. GENITOURINARY: Denies any blood in urine or increased urinary frequency. MUSCULOSKELETAL: Denies myalgias. Denies joint swelling. Denies decreased range of motion beyond patients baseline. SKIN: Denies pruitis. Denies rash. PHYSICAL EXAM: VITAL SIGNS: Reviewed GENERAL: Well-developed in no acute distress. HEENT: No sclera icterus. Extraocular movements grossly intact. Moist buccal mucosa. Head is atraumatic, normocephalic. Hears conversational speech. No nasal drainage. NECK: Supple without lymphadenopathy. CHEST: Non-labored respirations and equal bilateral excursions. CARDIOVASCULAR: Palpable 2+ radial pulses. ABDOMEN: Soft. Morbid obesity. Nondistended. Nontender. Umbilical hernia reducible. Nontender. MUSCULOSKELETAL: No clubbing or cyanosis. NEUROLOGIC: No focal or lateralizing signs. Cranial nerves II through XII grossly intact. PSYCH: Appropriate affect. Alert and oriented to person, place and time. SKIN: Groin skin fold and thigh folds irritation and candidiasis noted bilaterally LABORATORY DATA: WBC 28.8 Hgb 13.5 platelets 483 Sodium 138 potassium 4.4 CO2 8 creatinine 2.64 Lactic acid 12 down to 2.0 Magnesium 2.6 LFTs normal lipase 280 Stool for C. difficile negative IMAGING: CT scan abdomen pelvis reports no definite acute process. Fat-containing umbilical hernia ASSESSMENT: 1. Nausea, vomiting and diarrhea possibly due to a gastroenteritis 2. Acute kidney injury with chronic kidney disease 3. Elevated lactic acid level 4. Dehydration 5. Leukocytosis 6. Morbid obesity 7. Umbilical hernia containing fat PLAN: -Continue IV fluids -Continue antiemetics as needed -Continue supportive care -Continue fecal management system -Further recommendations forthcoming per surgeon Physician Communication Specialist note has been reviewed by physician. Signing provider agrees with the documented findings, assessment, and plan of care. As above. Please see additional documentation below. CHIEF COMPLAINT: Diarrhea HISTORY OF PRESENT ILLNESS: The patient is a 63-year-old male with moderate debility due to severe morbid obesity, BMI 61.6. Patient's history includes a prior debridement of buttocks including medial thighs at outside facility and was sent to rehab facility. Patient then gone home and developed seizure-like activities with diarrhea and brought to the hospital. No fevers. No chills. Did have elevated white blood cell count over 28,000. Patient was on ant ibiotics prior to admission. General surgery is consulted for his diarrhea. No reports of blood in stools. At the time of my assessment, patient reports that his diarrhea had improved. PAST MEDICAL HISTORY: See list and reviewed PAST SURGICAL HISTORY: See list and reviewed MEDICATIONS: See list and reviewed ALLERGIES: See list and reviewed SOCIAL HISTORY: See list and reviewed FAMILY HISTORY: See list and reviewed REVIEW OF ORGAN SYSTEMS: CONSTITUTIONAL: No fevers or chills. Morbid obesity excess calories, BMI 67.6 EYES: Denies any trouble with vision. No glasses. HEENT: No difficulties with hearing. No nosebleeds. No difficulty swallowing. RESPIRATORY: Has obstructive sleep apnea. CARDIOVASCULAR: Has hypertensive heart disease. Has hyperlipidemia. GASTROINTESTINAL: Has gastroesophageal reflux disease GENITOURINARY: Denies any blood in urine or increased urinary frequency. NEUROLOGICAL: Denies any numbness or tingling along the distal extremities. No seizure disorders or headaches. MUSCULOSKELETAL: Has back pain, stiffness or joint arthritis. SKIN: No current skin cancer. No rash. PSYCHIATRIC: Denies current depression or suicidal thoughts. ENDOCRINE: Denies current thyroid disorders. Denies any blood sugar glucose intolerance. HEME/LYMPHATIC: Denies any lumps and bumps around the neck. No recent deep venous thrombosis. ALLERGY/IMMUNOLOGY: No immunoglobulin therapy. No immune deficiencies. BREAST: Denies current breast lumps, pain or nipple discharge. PHYSICAL EXAM: VITALS: Reviewed CONSTITUTIONAL: Well developed and in no acute distress. EYES: Conjuctivae without sclera icterus. Extraocular movements grossly intact. HEAD, EARS, NOSE, THROAT: Moist buccal mucosa. Head is atraumatic, normocephalic. Hears conversational speech. No nasal drainage. NECK: Supple. No JV distention. No thyroidomegaly. RESPIRATORY: Non-labored respirations and equal bilateral excursions. No gross wheezes. CARDIOVASCULAR: Palpable 2+ radial pulses. ABDOMEN: LYMPH: No neck lymphadenopathy. MUSCULOSKELETAL: No clubbing cyanosis or edema SKIN: Warm and well perfused with good skin turgor. NEUROLOGIC: Cranial nerves II through XII grossly intact. No focal or lateralizing signs. PSYCH: Appropriate affect. Alert and oriented to person, place and time. Displays appropriate insight. CLINCAL LABS: Reviewed WBC over 28,000. Creatinine elevated 2.64. Lactic acid elevated over 12.0. C. difficile negative. IMAGING: Independently reviewed. CT of the abdomen pelvis demonstrates fat- containing Billick hernia. No intra-abdominal mass. No free air. No bowel obstruction. No inflammatory changes with small or large bowel. This is my independent interpretation. RADIOLOGY: Report reviewed of CT abdomen pelvis demonstrates no acute issues. RECORDS: previous old records reviewed demonstrates chronic renal disease. ASSESSMENT: 1. Diarrhea. 2. Morbid obesity excess calories, BMI 67.6 3. Generalized debility. 4. Obstructive sleep apnea 5. Hypertensive heart disease 6. Hyperlipidemia 7. Hypertensive renal disease, stage III 8. Lactic acidosis. PLAN: 1. IV fluid hydration. 2. Infectious disease management for lactic acidosis. 3. No acute intervention or colonoscopy needed at this time. 4. Medical managemen for generalized debility. 5. Wound care clinic consultation advised. ADVANCE DIRECTIVE: CODE STATUS in chart. Thank you for this kind consultation. Past Medical History Past Medical History: GERD/Reflux, Hypertension, Sleep Apnea/CPAP/BIPAP Additional Past Medical History / Comment(s): USES C-PAP MACHINE History of Any Multi-Drug Resistant Organisms: None Reported Past Surgical History: Hernia Repair Additional Past Surgical History / Comment(s): 02/05/19: Right leg ulcer/abcess removed by Dr. Bowers Past Anesthesia/Blood Transfusion Reactions: Motion Sickness Past Psychological History: No Psychological Hx Reported Past Alcohol Use History: Rare - Past Family History Mother Family Medical History: No Reported History Medications and Allergies Home Medications Medication Instructions Recorded Confirmed Type Aspirin [Adult Low Dose Aspirin EC] 81 mg PO DAILY 09/13/17 06/26/24 History Atorvastatin [Lipitor] 40 mg PO DAILY 06/26/24 06/26/24 History Pantoprazole Sodium [Protonix] 40 mg PO DAILY 06/26/24 06/26/24 History Polymyxin B-Trimeth Sulf Ophth 1 drop BOTH EYES Q6H 06/26/24 06/26/24 History [Polytrim Opthalmic] Prochlorperazine [Compazine] 5 mg PO TID PRN 06/26/24 06/26/24 History lisinopriL [Zestril] 20 mg PO DAILY 06/26/24 06/26/24 History Allergies Allergy/AdvReac Type Severity Reaction Status Date / Time bee venom protein (honey bee) Allergy Anaphylaxis Verified 06/25/24 23:20 Surgical - Exam Vital Signs Temp Pulse Resp BP Pulse Ox 98.4 F 105 H 24 86/36 95 06/25/24 23:15 06/25/24 23:15 06/25/24 23:15 06/25/24 23:15 06/25/24 23:15 Results - Labs 06/25/24 23:27 06/25/24 23:27 Abnormal Lab Results - Last 24 Hours (Table) 06/25/24 06/25/24 06/25/24 Range/Units 23:27 23:27 23:27 WBC 28.8 H (3.8-10.6) k/uL MCHC 30.9 L (31.0-37.0) g/dL Plt Count 483 H (150-450) k/uL Neutrophils # 25.2 H (1.3-7.7) k/uL Monocytes # 1.2 H (0-1.0) k/uL Carbon Dioxide 8 L* (22-30) mmol/L BUN 30 H (9-20) mg/dL Creatinine 2.64 H (0.66-1.25) mg/dL Glucose 161 H (74-99) mg/dL Plasma Lactic Acid [place] 12.0 H* (0.7-2.0) mmol/L Magnesium 2.6 H (1.6-2.3) mg/dL Diabetes panel 06/25/24 Range/Units 23:27 Sodium 138 (137-145) mmol/L Potassium 4.4 (3.5-5.1) mmol/L Chloride 107 (98-107) mmol/L Carbon Dioxide 8 L* (22-30) mmol/L BUN 30 H (9-20) mg/dL Creatinine 2.64 H (0.66-1.25) mg/dL Glucose 161 H (74-99) mg/dL Calcium 10.0 (8.4-10.2) mg/dL AST 34 (17-59) U/L ALT 32 (4-49) U/L Alkaline Phosphatase 87 (38-126) U/L Total Protein 7.4 (6.3-8.2) g/dL Albumin 3.8 (3.5-5.0) g/dL Calcium panel 06/25/24 Range/Units 23:27 Calcium 10.0 (8.4-10.2) mg/dL Albumin 3.8 (3.5-5.0) g/dL Pituitary panel 06/25/24 Range/Units 23:27 Sodium 138 (137-145) mmol/L Potassium 4.4 (3.5-5.1) mmol/L Chloride 107 (98-107) mmol/L Carbon Dioxide 8 L* (22-30) mmol/L BUN 30 H (9-20) mg/dL Creatinine 2.64 H (0.66-1.25) mg/dL Glucose 161 H (74-99) mg/dL Calcium 10.0 (8.4-10.2) mg/dL Adrenal panel 06/25/24 Range/Units 23:27 Sodium 138 (137-145) mmol/L Potassium 4.4 (3.5-5.1) mmol/L Chloride 107 (98-107) mmol/L Carbon Dioxide 8 L* (22-30) mmol/L BUN 30 H (9-20) mg/dL Creatinine 2.64 H (0.66-1.25) mg/dL Glucose 161 H (74-99) mg/dL Calcium 10.0 (8.4-10.2) mg/dL Total Bilirubin 0.4 (0.2-1.3) mg/dL AST 34 (17-59) U/L ALT 32 (4-49) U/L Alkaline Phosphatase 87 (38-126) U/L Total Protein 7.4 (6.3-8.2) g/dL Albumin 3.8 (3.5-5.0) g/dL
--- NOTE | 2024-06-26 15:03 | XR ---
EXAMINATION TYPE: XR chest 1V portable DATE OF EXAM: 06/26/2024 2:19 PM COMPARISON: None CLINICAL INDICATION: Male, 63 years old with history of chf; [facility] TECHNIQUE: XR chest 1V portable Frontal view of the chest. FINDINGS: Lungs/Pleura: There is no evidence of pleural effusion, focal consolidation, or pneumothorax. Pulmonary vascularity: Unremarkable. Heart/mediastinum: Cardiomediastinal silhouette is unremarkable. Musculoskeletal: No acute osseous pathology. IMPRESSION: Low lung volumes with a generalized hazy appearance which could represent atelectasis versus pulmonar y edema correlate with serum BNP. [facility], , 06/26/2024 3:00 PM
[2024-06-26] MEDS: VANCOMYCIN 125 MG CAPSULE PO SCH ×2 (15:29→21:35)
[2024-06-26] MEDS: FLUCONAZOLE 150 MG TAB PO SCH (15:29)
--- NOTE | 2024-06-26 22:58 | P.CONS ---
History of Present Illness - Reason for Consult Consult date: 06/26/24 Multiple wounds Requesting physician: Jayla Cameron - Chief Complaint Nausea vomiting diarrhea x 1 day - History of Present Illness Patient is a 63-year-old male past medical history difficult for hypertension sleep apnea reflux patient has been brought into the hospital concerning for nausea vomiting and diarrhea patient symptoms started the day before presentation to the hospital patient denies high-grade fever or any chills and no fever have been recorded on presentation to hospital patient was mildly tachycardic but not hypotensive or hypoxic patient did have a elevated white count 28.8 with a left shift BUN and creatinine has been mildly elevated a lso have elevated lactic acid liver enzymes has been normal manage lipase has been negative patient did have stool for CT which came back negative abdominal pelvis CT no definite acute process seen to account for the patient's symptoms patient has been admitted to the hospital infectious he was consulted because of multiple wounds in this patient who did have a extensive excoriation of the abdominal fold as well as with posterior thigh area that has been there for couple of weeks patient complaining of some burning pain to those areas moderate intensity Radiation Review of Systems Positive point and negatives has been mentioned in the HPI, complete review of systems was performed and all other systems are negative Past Medical History Past Medical History: GERD/Reflux, Hypertension, Sleep Apnea/CPAP/BIPAP Additional Past Medical History / Comment(s): USES C-PAP MACHINE History of Any Multi-Drug Resistant Organisms: None Reported Past Surgical History: Hernia Repair Additional Past Surgical History / Comment(s): 02/05/19: Right leg ulcer/abcess removed by Dr. Bowers Past Anesthesia/Blood Transfusion Reactions: Motion Sickness Past Psychological History: No Psychological Hx Reported Past Alcohol Use History: Rare - Past Family History Mother Family Medical History: No Reported History Medications and Allergies Home Medications Medication Instructions Recorded Confirmed Type Aspirin [Adult Low Dose Aspirin EC] 81 mg PO DAILY 09/13/17 06/26/24 History Atorvastatin [Lipitor] 40 mg PO DAILY 06/26/24 06/26/24 History Pantoprazole Sodium [Protonix] 40 mg PO DAILY 06/26/24 06/26/24 History Polymyxin B-Trimeth Sulf Ophth 1 drop BOTH EYES Q6H 06/26/24 06/26/24 History [Polytrim Opthalmic] Prochlorperazine [Compazine] 5 mg PO TID PRN 06/26/24 06/26/24 History lisinopriL [Zestril] 20 mg PO DAILY 06/26/24 06/26/24 History Allergies Allergy/AdvReac Type Severity Reaction Status Date / Time bee venom protein (honey bee) Allergy Anaphylaxis Verified 06/25/24 23:20 Physical Exam Vitals: Vital Signs Temp Pulse Resp BP Pulse Ox 06/26/24 11:19 99 18 148/87 97 06/26/24 09:15 98.0 F 92 18 106/63 98 06/26/24 07:57 93 18 139/77 97 06/26/24 06:00 103 H 19 127/73 97 06/26/24 05:00 101 H 21 127/71 96 06/26/24 04:00 104 H 16 124/67 96 06/26/24 03:00 101 H 16 122/64 98 06/26/24 01:59 97.7 F 98 18 90/62 97 06/26/24 01:00 98 15 90/58 93 L 06/26/24 00:30 92 17 103/58 93 L 06/26/24 00:15 97 10 L 95/56 97 06/26/24 00:00 96 23 89/54 96 06/25/24 23:45 101 H 15 84/45 2 L 06/25/24 23:15 98.4 F 105 H 24 86/36 95 Intake and Output 06/25/24 06/26/24 06/26/24 22:59 06:59 14:59 Other: Weight 190.055 kg GENERAL DESCRIPTION: Middle-aged male lying in bed, no distress. No tachypnea or accessory muscle of respiration use. HEENT: Shows Pallor , no scleral icterus. Oral mucous membrane is dry. NECK: Trachea central, no thyromegaly. LUNGS: Unlabored breathing. Clear to auscultation anteriorly. No wheeze or crackle. HEART: S1, S2, regular rate and rhythm. No loud murmur ABDOMEN: Soft, no tenderness EXTREMITIES: Swelling to the leg with some excoriation to the posterior thigh SKIN: Patient did have significant excoriation to the bilateral groin fold area NEUROLOGICAL: The patient is awake, alert,, mood and affect normal. Results CBC & Chem 7: 06/25/24 23:27 06/25/24 23:27 Labs: Abnormal Lab Results - Last 24 Hours (Table) 06/25/24 06/25/24 06/25/24 Range/Units 23:27 23:27 23:27 WBC 28.8 H (3.8-10.6) k/uL MCHC 30.9 L (31.0-37.0) g/dL Plt Count 483 H (150-450) k/uL Neutrophils # 25.2 H (1.3-7.7) k/uL Monocytes # 1.2 H (0-1.0) k/uL Carbon Dioxide 8 L* (22-30) mmol/L BUN 30 H (9-20) mg/dL Creatinine 2.64 H (0.66-1.25) mg/dL Glucose 161 H (74-99) mg/dL Plasma Lactic Acid [place] 12.0 H* (0.7-2.0) mmol/L Magnesium 2.6 H (1.6-2.3) mg/dL Assessment and Plan (1) Diarrhea Current Visit: Yes Status: Acute Code(s): R19.7 - DIARRHEA, UNSPECIFIED SNOMED Code(s): 37329226 (2) Cutaneous candidiasis Current Visit: Yes Status: Acute Code(s): B37.2 - CANDIDIASIS OF SKIN AND NAIL SNOMED Code(s): 92947061 (3) Leukocytosis (leucocytosis) Current Visit: Yes Status: Acute Code(s): D72.829 - ELEVATED WHITE BLOOD CELL COUNT, UNSPECIFIED SNOMED Code(s): 291042173 Plan: 1patient presented to hospital with acute nausea vomiting and diarrhea and this patient did have significant elevated white count with concern for possible infectious versus noninfectious diarrhea and concern for possible C. difficile 2-patient also have extensive cutaneous candidiasis to the groin fold as well as posterior thigh area 3-we will check a stool for C. difficile PCR as well as stool culture 4-empirically start the patient on oral vancomycin and the patient be advised nystatin powder to the groin fold area Sons at the bedside question concern answered We will follow on clinical condition and cultures to further adjust medication if needed Thank you for this consultation we will follow the patient along with you Dictation was produced using Zura!ation software. please excuse any grammatical, word or spelling errors. Time with Patient: Greater than 30
[2024-06-27] MEDS: HYDROcodone/APAP 5-325MG 1 EACH TAB PO PRN (00:12)
[2024-06-27 00:16] LABS: Appearance,Urine Clear (Clear); Bilirubin,Urine Negative (Negative); Blood,Urine Negative (Negative); Color,Urine Colorless; Glucose,Urine (UA) Negative (Negative); Ketones,Urine Negative (Negative); Leukocyte Esterase,Urine Negative (Negative); Nitrite,Urine Negative (Negative); Protein,Urine Negative (Negative); Specific Gravity,Urine 1.005 (1.001-1.035); Urobilinogen,Urine <2.0 mg/dL (<2.0)
--- NOTE | 2024-06-27 02:43 | HP ---
HISTORY AND PHYSICAL CHIEF COMPLAINT: Nausea, vomiting, diarrhea, and weakness. HISTORY OF PRESENT ILLNESS: This 63-year-old gentleman with a past medical history of multiple medical problems of GERD, hypertension, sleep apnea, morbid obesity, also had significant skin lesions in the perineal area. The patient is apparently taking antibiotics. The patient has some nausea, vomiting, diarrhea. The patient had severe renal failure and white count is elevated. Clostridium difficile diarrhea was suspected. The patient was admitted for further evaluation and treatment. Surgery and Infectious Disease evaluation in progress. There is no history of any fever, rigors, or chills. CT scan of the abdomen and pelvis done, which showed no definite acute process. PAST MEDICAL HISTORY: History of GERD, hypertension, and sleep apnea. Rest of the chart is also reviewed. HOME MEDICATIONS: Reviewed include, 1. Zyprexa. 2. Ceftin. Rest of medications reviewed. ALLERGIES: Bee venom. FAMILY HISTORY: No history of strokes. SOCIAL HISTORY: No smoke or alcohol. REVIEW OF SYSTEMS: Fourteen-point review of systems is negative except as mentioned earlier. PHYSICAL EXAMINATION: VITAL SIGNS: Pulse is 92, blood pressure n, respirations 18. HEENT: Conjunctivae normal. NECK: No JVD. CARDIOVASCULAR: S1, S2. RESPIRATIONS: Few scattered rhonchi. ABDOMEN: Soft, obese. EXTREMITIES: Legs bilateral leg edema. NERVOUS SYSTEM: Diffusely weak. SKIN: Significant ulcerations erythema, and edema present around the groin area. LABORATORY DATA: WBC 28.8 . ASSESSMENT: 1. Nausea and diarrhea, possibly antibiotic associated diarrhea or sepsis. 2. Acute renal failure with severe metabolic acidosis and lactic acidosis. 3. Elevated white blood cells. 4. Gastroesophageal reflux disease. 5. Hypertension. RECOMMENDATIONS AND DISCUSSION: This 63-year-old gentleman presented with multiple complex medical issues. We will monitor the patient closely. Continue the current management and treatment. P.o. vancomycin has been initiated. I would recommend to obtain the cultures and continue to monitor. Guarded prognosis. Further recommendation to follow. Empiric antibiotics will be decided by ID. Once again, overall prognosis is extremely guarded. Further recommendations to follow. MMODL / IJN: [id number] / MTDD
--- NOTE | 2024-06-27 10:33 | P.NPCON ---
History of Present Illness - Reason for Consult acute renal failure - History of Present Illness Reason for consultation: Acute kidney injury History of present illness: Patient is a 63-year-old male seen in renal consultation for acute kidney injury. Patient had developed acute kidney injury in 2019. Patient's creatinine was initially 0.87 and was 1.68 on discharge. No other records available. Creatinine this admission was 2.64. Patient presents due to nausea vomiting and diarrhea. Patient states the symptoms began yesterday and he was advised to go to the hospital. He did receive IV fluid boluses in the ER and is currently maintained on normal saline at 130 cc an hour. Has been voiding. Using the urinal. No gross hematuria or dysuria. He denies history of diabetes or coronary artery disease. He does take lisinopril outpatient. CAT scan showed no acute process. No evidence of hydronephrosis. He did have a temperature as high as 99.2 F this admission. White count also elevated. Vital signs are stable. General: No acute distress. HEENT: Head exam is unremarkable. LUNGS: No audible rhonchi or wheezes. HEART: Rate and Rhythm are regular. ABDOMEN: Obese, nontender. EXTREMITITES: No edema. Chronic changes noted. Past Medical History Past Medical History: GERD/Reflux, Hypertension, Sleep Apnea/CPAP/BIPAP Additional Past Medical History / Comment(s): USES C-PAP MACHINE History of Any Multi-Drug Resistant Organisms: None Reported Past Surgical History: Hernia Repair Additional Past Surgical History / Comment(s): 02/05/19: Right leg ulcer/abcess removed by Dr. Bowers Past Anesthesia/Blood Transfusion Reactions: Motion Sickness Past Psychological History: No Psychological Hx Reported Past Alcohol Use History: Rare - Past Family History Mother Family Medical History: No Reported History Medications and Allergies Home Medications Medication Instructions Recorded Confirmed Type Aspirin [Adult Low Dose Aspirin EC] 81 mg PO DAILY 09/13/17 06/26/24 History Atorvastatin [Lipitor] 40 mg PO DAILY 06/26/24 06/26/24 History Pantoprazole Sodium [Protonix] 40 mg PO DAILY 06/26/24 06/26/24 History Polymyxin B-Trimeth Sulf Ophth 1 drop BOTH EYES Q6H 06/26/24 06/26/24 History [Polytrim Opthalmic] Prochlorperazine [Compazine] 5 mg PO TID PRN 12/20/24 12/20/24 History lisinopriL [Zestril] 20 mg PO DAILY 06/26/24 06/26/24 History Allergies Allergy/AdvReac Type Severity Reaction Status Date / Time bee venom protein (honey bee) Allergy Anaphylaxis Verified 06/25/24 23:20 Physical Exam Vitals: Vital Signs Temp Pulse Pulse Resp BP BP Pulse Ox 06/27/24 07:23 98.0 F 94 16 134/81 98 06/27/24 02:00 98.4 F 104 H 16 145/87 98 06/26/24 20:00 99.2 F 110 H 14 132/78 97 06/26/24 19:54 110 H 16 06/26/24 19:30 105 H 21 147/82 99 06/26/24 18:48 103 H 18 143/87 98 06/26/24 15:53 101 H 18 142/69 99 06/26/24 11:19 99 18 148/87 97 Intake and Output 06/26/24 06/27/24 06/27/24 22:59 06:59 14:59 Intake Total 1080 Output Total 1050 400 Balance 30 -400 Intake: Oral 1080 Output: Urine 950 400 Stool 100 Other: Voiding Method Urinal Weight 190.055 kg Results - Lab Results Most recent lab results Calcium 10.0 mg/dL (8.4-10.2) 06/25/24 23:27 Magnesium 2.6 mg/dL (1.6-2.3) H 06/25/24 23:27 06/25/24 23:27 06/25/24 23:27 Assessment and Plan Plan: Assessment: 1. Acute kidney injury secondary to ATN secondary to hypovolemia further worsened with the use of ALEXIS inhibitor. Creatinine 2.64 on admission. UA benign. No hydronephrosis noted on CAT scan. 2. Metabolic acidosis secondary to acute kidney injury, diarrhea, IV fluids and lactic acidosis. 3. Type A lactic acidosis improved with IV fluids. 4. Groin wound with culture positive for Proteus and strep. On antibiotics. C. difficile negative. Plan: Decrease rate of IV fluids to 75 cc an hour. Hold lisinopril. Follow-up morning labs. Encouraged oral intake as able to tolerate. Thank you for the consultation. I will continue to follow the patient with you during his hospital stay.
--- NOTE | 2024-06-27 10:41 | P.PN ---
Subjective Progress Note Date: 06/27/24 NAEON. No F/C. No SOB or CP. No headache or blurry vision. Endorses continued diarrhea. No melena or hematochezia. Tolerating diet. Objective - Vital Signs Vital signs: Vital Signs Temp 98.0 F 06/27/24 07:23 Pulse 94 06/27/24 07:23 Resp 16 06/27/24 07:23 BP 134/81 06/27/24 07:23 Pulse Ox 98 06/27/24 07:23 FiO2 Intake & Output 06/26/24 06/27/24 06/27/24 18:59 06:59 18:59 Intake Total 1080 Output Total 1050 400 Balance 30 -400 Weight 190.055 kg Intake: Oral 1080 Output: Urine 950 400 Stool 100 Other: Voiding Method Urinal - Exam Gen: AxO, NAD Pulm: non-labored respiration Abd: soft, non-tender, non-distended. No guarding/rebound/rigidity Extrem: no edema seen - Labs CBC & Chem 7: 06/25/24 23:27 06/25/24 23:27 Labs: Microbiology - Last 24 Hours (Table) 06/26/24 14:37 Gram Stain - Preliminary Groin Wound Culture - Preliminary Proteus mirabilis Beta Hemolytic Strep Group C Assessment and Plan Assessment: Patient is a 63 year old male who presents with diarrhea Plan: -Diet as tolerated -IVF hydration -PRN pain and nausea control -DVT/GI PPx -No acute surgical intervention Bo Bangura M.D. General Surgery
[2024-06-27 15:14] LABS: Basophils % (A) 0 %; Eosinophils # (A) 0.1 k/uL (0-0.7); Eosinophils % (A) 0 %; HCT 36.7 % (39.0-53.0); HGB 11.3 gm/dL (13.0-17.5); Hypochromasia Marked; Lymphocytes # (A) 1.6 k/uL (1.0-4.8); Lymphocytes % (A) 6 %; MCH 27.3 pg (25.0-35.0); MCHC 30.8 g/dL (31.0-37.0); MCV 88.7 fL (80.0-100.0); Mean Platelet Volume 7.2; Monocytes # (A) 1.6 k/uL (0-1.0); Monocytes % (A) 6 %; Neutrophils # (A) 23.4 k/uL (1.3-7.7); Neutrophils % (A) 87 %; Platelet Count 358 k/uL (150-450); RBC 4.14 m/uL (4.30-5.90); RDW 14.1 % (11.5-15.5); WBC 27.1 k/uL (3.8-10.6)
[2024-06-27 15:25] LABS: ALT 27 U/L (4-49); AST 43 U/L (17-59); African American GFR (CKD) >90 (>60 ml/min/1.73 sqM); Albumin 2.9 g/dL (3.5-5.0); Alkaline Phosphatase 66 U/L (38-126); Anion Gap 8 mmol/L; Blood Urea Nitrogen 16 mg/dL (9-20); Calcium 8.8 mg/dL (8.4-10.2); Carbon Dioxide 20 mmol/L (22-30); Chloride 109 mmol/L (98-107); Glucose 133 mg/dL (74-99); Non-African American GFR(CKD) >90 (>60 ml/min/1.73 sqM); Potassium 4.1 mmol/L (3.5-5.1); Sodium 137 mmol/L (137-145); Total Bilirubin 0.3 mg/dL (0.2-1.3); Total Protein 5.9 g/dL (6.3-8.2)
[2024-06-27] MEDS ORDERED: PROCHLORPERAZINE 5 MG TAB PO PRN (18:30)
--- NOTE | 2024-06-27 18:32 | P.PN ---
Subjective Progress Note Date: 06/27/24 63-year-old male past medical history difficult for hypertension sleep apnea reflux patient has been brought into the hospital concerning for nausea vomiting and diarrhea patient symptoms started the day before presentation to the hospital patient denies high-grade fever or any chills and no fever have been recorded on presentation to hospital patient was mildly tachycardic but not hypotensive or hypoxic patient did have a elevated white count 28.8 with a left shift BUN and creatinine has been mildly elevated also have elevated lactic acid liver enzymes has been normal manage lipase has been negative patient did have stool for CT which came back negative abdominal pelvis CT no definite acute process seen to account for the patient's symptoms patient has been admitted to the hospital infectious he was consulted because of multiple wounds in this patient who did have a extensive excoriation of the abdominal fold as well as with posterior thigh area that has been there for couple of weeks patient complaining of some burning pain to those areas moderate intensity Objective - Vital Signs Vital signs: Vital Signs Temp 98.2 F 06/27/24 12:24 Pulse 95 06/27/24 12:24 Resp 16 06/27/24 12:24 BP 154/82 06/27/24 12:24 Pulse Ox 99 06/27/24 12:24 FiO2 Intake & Output 06/26/24 06/27/24 06/27/24 18:59 06:59 18:59 Intake Total 1080 Output Total 1050 400 Balance 30 -400 Weight 190.055 kg Intake: Oral 1080 Output: Urine 950 400 Stool 100 Other: Voiding Method Urinal Urinal - Exam GENERAL DESCRIPTION: Middle-aged male lying in bed, no distress. No tachypnea or accessory muscle of respiration use. HEENT: Shows Pallor , no scleral icterus. Oral mucous membrane is dry. NECK: Trachea central, no thyromegaly. LUNGS: Unlabored breathing. Clear to auscultation anteriorly. No wheeze or crackle. HEART: S1, S2, regular rate and rhythm. No loud murmur ABDOMEN: Soft, no tenderness EXTREMITIES: Swelling to the leg with some excoriation to the posterior thigh SKIN: Patient did have significant excoriation to the bilateral groin fold area NEUROLOGICAL: The patient is awake, alert,, mood and affect normal. - Labs CBC & Chem 7: 06/27/24 14:54 06/27/24 14:54 Labs: Microbiology - Last 24 Hours (Table) 06/26/24 14:37 Gram Stain - Preliminary Groin Wound Culture - Preliminary Proteus mirabilis Beta Hemolytic Strep Group C Assessment and Plan Assessment: Intractable nausea, vomiting/diarrhea; possibly antibiotic associated versus colitis versus sepsis Acute renal failure with severe metabolic acidosis and lactic acidosis Marked leukocytosis Gastroesophageal reflux disease Hypertension Hyperlipidemia 1patient presented to hospital with acute nausea vomiting and diarrhea and this patient did have significant elevated white count with concern for possible infectious versus noninfectious diarrhea and concern for possible C. difficile 2-patient also have extensive cutaneous candidiasis to the groin fold as well as posterior thigh area 3-we will check a stool for C. difficile PCR as well as stool culture 4-empirically start the patient on oral vancomycin and the patient be advised nystatin powder to the groin fold area Sons at the bedside question concern answered We will follow on clinical condition and cultures to further adjust medication if needed
[2024-06-27] MEDS: POLYMYXIN B-TRIMETHOPRIM SULF (10,000-1) OPHTH DROPS 10 ML BTL BOTH EYES SCH (20:48)
[2024-06-27] MEDS: ZINC OXIDE PASTE (Z-GUARD) 1 APPLIC TOPICAL PRN (22:59)
[2024-06-28] MEDS: lisinopriL 20 MG TAB PO SCH (08:22)
[2024-06-28] MEDS: ASPIRIN 81 MG PO SCH (08:22)
[2024-06-28] MEDS: ATORVASTATIN 40 MG TAB PO SCH (08:22)
[2024-06-28 09:32] LABS: HCT 36.5 % (39.6-50.0); HGB 11.3 g/dL (13.0-17.0); MCH 27.3 pg (27.0-32.0); MCV 88.2 FL (80.0-97.0); Mean Platelet Volume 9.9 FL (9.5-12.2); NRBC Per 100 WBC 0 X 10*3/uL (0.00-0.01); Platelet Count 397 X 10*3/uL (140-440); RBC 4.14 X 10*6/uL (4.40-5.60); RDW 14.6 % (11.5-14.5); WBC 24.97 X 10*3/uL (4.50-10.00)
--- NOTE | 2024-06-28 09:56 | P.PN ---
Subjective Patient is seen in follow-up for acute kidney injury. Renal function improved. On IV fluids. Oral intake is good. Vital signs are stable. General: No acute distress. HEENT: Head exam is unremarkable. LUNGS: No audible rhonchi or wheezes. HEART: Rate and Rhythm are regular. ABDOMEN: Obese, nontender. EXTREMITITES: Trace edema. Chronic changes noted. Objective - Vital Signs Vital signs: Vital Signs Temp 98.4 F 06/28/24 07:24 Pulse 83 06/28/24 07:24 Resp 15 06/28/24 07:24 BP 158/89 06/28/24 07:24 Pulse Ox 99 06/28/24 07:24 FiO2 Intake & Output 06/27/24 06/28/24 06/28/24 18:59 06:59 18:59 Intake Total 540 Output Total 600 1650 Balance -600 -1110 Intake: Oral 540 Output: Urine 600 1650 Other: Voiding Method Urinal Urinal - Labs CBC & Chem 7: 06/28/24 02:53 06/27/24 14:54 Labs: Abnormal Lab Results - Last 24 Hours (Table) 06/27/24 06/27/24 06/28/24 Range/Units 14:54 14:54 02:53 WBC 27.1 H 24.97 H (3.8-10.6) k/uL RBC 4.14 L 4.14 L (4.30-5.90) m/uL Hgb 11.3 L 11.3 L (13.0-17.5) gm/dL Hct 36.7 L 36.5 L (39.0-53.0) % MCHC 30.8 L 31.0 L (31.0-37.0) g/dL RDW 14.6 H (11.5-14.5) % Neutrophils # 23.4 H (1.3-7.7) k/uL Monocytes # 1.6 H (0-1.0) k/uL Chloride 109 H (98-107) mmol/L Carbon Dioxide 20 L (22-30) mmol/L Glucose 133 H (74-99) mg/dL Total Protein 5.9 L (6.3-8.2) g/dL Albumin 2.9 L (3.5-5.0) g/dL Microbiology - Last 24 Hours (Table) 06/26/24 14:37 Stool Culture - Preliminary Stool 06/26/24 14:37 Gram Stain - Final Groin Wound Culture - Final Proteus mirabilis Beta Hemolytic Strep Group C 06/26/24 14:37 Urine Culture - Preliminary Urine,Ureter Gram Neg Bacilli 06/26/24 14:32 Blood Culture - Preliminary Blood Assessment and Plan Plan: Assessment: 1. Acute kidney injury secondary to ATN secondary to hypovolemia further worsened with the use of ALEXIS inhibitor. Creatinine 2.64 on admission -0.84 today. UA benign. No hydronephrosis noted on CAT scan. 2. Metabolic acidosis secondary to acute kidney injury, diarrhea, IV fluids and lactic acidosis. Improved. 3. Type A lactic acidosis improved with IV fluids. 4. Groin wound with culture positive for Proteus and strep. Also with gram- negative UTI. On antibiotics. C. difficile negative. Plan: Decrease rate of IV fluids to 50 cc an hour. Lisinopril resumed. Encouraged oral intake as able to tolerate. Continue to monitor renal function and urine output.
[2024-06-28 10:03] LABS: Basophils # (A) 0.06 X 10*3/uL (0.00-0.10); Basophils % (A) 0.2 %; Eosinophils # (A) 0.21 X 10*3/uL (0.04-0.35); Eosinophils % (A) 0.8 %; Lymphocytes # (A) 2.29 X 10*3/uL (0.90-5.00); Lymphocytes % (A) 9.2 %; Monocytes # (A) 2.33 X 10*3/uL (0.20-1.00); Monocytes % (A) 9.3 %; Neutrophils # (A) 19.88 X 10*3/uL (1.80-7.70); Neutrophils % (A) 79.7 %
[2024-06-28 11:58] LABS: BUN/Creat Ratio 13.75 Ratio (12.00-20.00); Calcium 8.9 mg/dL (8.7-10.3); Carbon Dioxide 25.4 mmol/L (21.6-31.8); Chloride 108 mmol/L (96-109); Glucose 96 mg/dL (70-110); Magnesium 1.8 mg/dL (1.5-2.4); Potassium 4.6 mmol/L (3.5-5.5); Sodium 140 mmol/L (135-145)
[2024-06-28] MEDS: ceFAZolin 3 GM in SODIUM CHLORIDE 0.9% 100 ML IVPB SCH (14:30)
[2024-06-28] MEDS: SODIUM CHLORIDE 0.9% 1,000 ML IV SCH (14:39)
--- NOTE | 2024-06-28 16:36 | P.PN ---
Subjective Progress Note Date: 06/28/24 63-year-old male past medical history difficult for hypertension sleep apnea reflux patient has been brought into the hospital concerning for nausea vomiting and diarrhea patient symptoms started the day before presentation to the hospital patient denies high-grade fever or any chills and no fever have been recorded on presentation to hospital patient was mildly tachycardic but not hypotensive or hypoxic patient did have a elevated white count 28.8 with a left shift BUN and creatinine has been mildly elevated also have elevated lactic acid liver enzymes has been normal manage lipase has been negative patient did have stool for CT which came back negative abdominal pelvis CT no definite acute process seen to account for the patient's symptoms patient has been admitted to the hospital infectious he was consulted because of multiple wounds in this patient who did have a extensive excoriation of the abdominal fold as well as with posterior thigh area that has been there for couple of weeks patient complaining of some burning pain to those areas moderate intensity 24-hour interval change 06/28/2024 Patient is seen and evaluated with staff members at bedside; examined while staff members trying to clean the patient; patient has excessive excoriation Vital signs are reviewed and remained stable patient presented to hospital with acute nausea vomiting and diarrhea and this patient did have significant elevated white count with concern for possible infectious versus noninfectious diarrhea and concern for possible C. difficile; C. difficile toxin and PCR is negative; patient initially treated empirically with oral vancomycin which has been discontinued -patient also have extensive cutaneous candidiasis to the groin fold as well as posterior thigh area; patient remains on nystatin powder -Wound care consult placed Objective - Vital Signs Vital signs: Vital Signs Temp 98.4 F 06/28/24 07:24 Pulse 83 06/28/24 07:24 Resp 15 06/28/24 07:24 BP 158/89 06/28/24 07:24 Pulse Ox 99 06/28/24 07:24 FiO2 Intake & Output 06/27/24 06/28/24 06/28/24 18:59 06:59 18:59 Intake Total 540 Output Total 600 1650 Balance -600 -1110 Intake: Oral 540 Output: Urine 600 1650 Other: Voiding Method Urinal Urinal - Exam GENERAL DESCRIPTION: Middle-aged male lying in bed, no distress. No tachypnea or accessory muscle of respiration use. HEENT: Shows Pallor , no scleral icterus. Oral mucous membrane is dry. NECK: Trachea central, no thyromegaly. LUNGS: Unlabored breathing. Clear to auscultation anteriorly. No wheeze or crackle. HEART: S1, S2, regular rate and rhythm. No loud murmur ABDOMEN: Soft, no tenderness EXTREMITIES: Swelling to the leg with some excoriation to the posterior thigh SKIN: Patient did have significant excoriation to the bilateral groin fold area NEUROLOGICAL: The patient is awake, alert,, mood and affect normal. - Labs CBC & Chem 7: 06/28/24 02:53 06/28/24 02:53 Labs: Abnormal Lab Results - Last 24 Hours (Table) 06/27/24 06/27/24 06/28/24 Range/Units 14:54 14:54 02:53 WBC 27.1 H 24.97 H (3.8-10.6) k/uL RBC 4.14 L 4.14 L (4.30-5.90) m/uL Hgb 11.3 L 11.3 L (13.0-17.5) gm/dL Hct 36.7 L 36.5 L (39.0-53.0) % MCHC 30.8 L 31.0 L (31.0-37.0) g/dL RDW 14.6 H (11.5-14.5) % Immature Gran # 0.20 H (0.00-0.04) X 10*3/uL Neutrophils # 23.4 H 19.88 H (1.3-7.7) k/uL Monocytes # 1.6 H 2.33 H (0-1.0) k/uL Chloride 109 H (98-107) mmol/L Carbon Dioxide 20 L (22-30) mmol/L Glucose 133 H (74-99) mg/dL Total Protein 5.9 L (6.3-8.2) g/dL Albumin 2.9 L (3.5-5.0) g/dL Microbiology - Last 24 Hours (Table) 06/26/24 14:37 Stool Culture - Preliminary Stool 06/26/24 14:37 Gram Stain - Final Groin Wound Culture - Final Proteus mirabilis Beta Hemolytic Strep Group C 06/26/24 14:37 Urine Culture - Preliminary Urine,Ureter Gram Neg Bacilli 06/26/24 14:32 Blood Culture - Preliminary Blood Assessment and Plan Assessment: Intractable nausea, vomiting/diarrhea; possibly antibiotic associated versus colitis versus sepsis Acute renal failure with severe metabolic acidosis and lactic acidosis Marked leukocytosis Gastroesophageal reflux disease Hypertension Hyperlipidemia 1patient presented to hospital with acute nausea vomiting and diarrhea and this patient did have significant elevated white count with concern for possible infectious versus noninfectious diarrhea and concern for possible C. difficile 2-patient also have extensive cutaneous candidiasis to the groin fold as well as posterior thigh area 3-we will check a stool for C. difficile PCR as well as stool culture 4-empirically start the patient on oral vancomycin and the patient be advised nystatin powder to the groin fold area Sons at the bedside question concern answered We will follow on clinical condition and cultures to further adjust medication if needed
--- NOTE | 2024-06-28 17:33 | P.PN ---
Subjective Progress Note Date: 06/28/24 CHIEF COMPLAINT: Diarrhea HISTORY OF PRESENT ILLNESS: The patient is a 63-year-old male who presents with generalized debility, super morbid obesity, BMI 67.6, chronic diarrhea and leukocytosis. Since admission, patient reports his diarrhea is now resolved today. He is tolerating diet. ROS: No reports of nausea and vomiting. No fevers or chills. No new chest pain. No productive sputum PHYSICAL EXAM: VITAL SIGNS: Reviewed CONSTITUTIONAL: Well developed and in no acute distress. EYES: Conjuctivae without sclera icterus. Extraocular movements grossly intact. HEAD, EARS, NOSE, THROAT: Moist buccal mucosa. Head is atraumatic, normocephalic. Hears conversational speech. No nasal drainage. RESPIRATORY: Non-labored respirations and equal bilateral excursions. CARDIOVASCULAR: Palpable 2+ radial pulses. ABDOMEN: Obese. MUSCULOSKELETAL: No gross deformity of the lower extremities noted. No clubbing. No cyanosis. SKIN: Good skin turgor. Well perfused. NEUROLOGIC: Cranial nerves II through XII grossly intact. No focal or lateralizing signs. PSYCH: Appropriate affect. Alert and oriented to person, place and time. CLINICAL LABS: Reviewed. WBC over 27,000 down to over 24,000, persistent leukocytosis. C. difficile negative. ASSESSMENT: 1. Chronic diarrhea 2. Leukocytosis PLAN: 1. His diarrhea is resolved however he still has persistent leukocytosis. Infectious diseases monitoring. 2. No colonoscopy or endoscopic assessment advised during this admission. Objective - Vital Signs Vital signs: Vital Signs Temp 98.5 F 06/28/24 12:00 Pulse 84 06/28/24 12:00 Resp 16 06/28/24 12:00 BP 173/76 06/28/24 12:00 Pulse Ox 99 06/28/24 12:00 FiO2 Intake & Output 06/27/24 06/28/24 06/28/24 18:59 06:59 18:59 Intake Total 540 Output Total 600 1650 Balance -600 -1110 Intake: Oral 540 Output: Urine 600 1650 Other: Voiding Method Urinal Urinal - Labs CBC & Chem 7: 06/28/24 02:53 06/28/24 02:53 Labs: Abnormal Lab Results - Last 24 Hours (Table) 06/28/24 Range/Units 02:53 WBC 24.97 H (4.50-10.00) X 10*3/uL RBC 4.14 L (4.40-5.60) X 10*6/uL Hgb 11.3 L (13.0-17.0) g/dL Hct 36.5 L (39.6-50.0) % MCHC 31.0 L (32.0-37.0) g/dL RDW 14.6 H (11.5-14.5) % Immature Gran # 0.20 H (0.00-0.04) X 10*3/uL Neutrophils # 19.88 H (1.80-7.70) X 10*3/uL Monocytes # 2.33 H (0.20-1.00) X 10*3/uL Microbiology - Last 24 Hours (Table) 06/26/24 14:37 Stool Culture - Preliminary Stool 06/26/24 14:37 Gram Stain - Final Groin Wound Culture - Final Proteus mirabilis Beta Hemolytic Strep Group C 06/26/24 14:37 Urine Culture - Preliminary Urine,Ureter Gram Neg Bacilli 06/26/24 14:32 Blood Culture - Preliminary Blood
[2024-06-28] MEDS: LOPERAMIDE 2 MG CAP PO PRN (17:47)
[2024-06-28] MEDS: HYDROmorphone 1 MG/ML 1 ML SYRINGE IVP STA (18:31)
--- NOTE | 2024-06-29 08:10 | P.PN ---
Subjective Progress Note Date: 06/27/24 Principal diagnosis: Reason for follow-up is leukocytosis diarrhea extensive excoriation of the groin and thigh Patient is a 63-year-old male past medical history difficult for hypertension sleep apnea reflux patient has been brought into the hospital concerning for nausea vomiting and diarrhea patient symptoms started the day before presentation to the hospital, patient did have a extensive excoriation of the bilateral groin posterior thigh area concerning for fungal dermatitis and also have significant diarrhea with elevated white count concerning for C. difficile On today's evaluation that is 06/27/2024, patient did not have any fever and denies any chills, patient is breathing comfortably on room air, patient with no chest pain or cough patient did not have any abdominal pain nausea vomiting mention diarrhea has slowed down. Patient white count is slightly down to 27.1, creatinine 0.84 stool for C. difficile EIA and PCR negative cultures are pending Objective - Vital Signs Vital signs: Vital Signs Temp 98.2 F 06/27/24 12:24 Pulse 95 06/27/24 12:24 Resp 16 06/27/24 12:24 BP 154/82 06/27/24 12:24 Pulse Ox 99 06/27/24 12:24 FiO2 Intake & Output 06/26/24 06/27/24 06/27/24 18:59 06:59 18:59 Intake Total 1080 Output Total 1050 400 Balance 30 -400 Weight 190.055 kg Intake: Oral 1080 Output: Urine 950 400 Stool 100 Other: Voiding Method Urinal Urinal - Exam GENERAL DESCRIPTION: An elderly male lying in bed in no distress RESPIRATORY SYSTEM: Unlabored breathing , decreased breath sounds at bases HEART: S1 S2 regular rate and rhythm , ABDOMEN: Soft , no tenderness EXTREMITIES: Extensive discoloration of the bilateral groin right posterior thigh did have some superficial wound and redness - Labs CBC & Chem 7: 06/28/24 02:53 06/28/24 02:53 Labs: Abnormal Lab Results - Last 24 Hours (Table) 06/27/24 Range/Units 14:54 WBC 27.1 H (3.8-10.6) k/uL RBC 4.14 L (4.30-5.90) m/uL Hgb 11.3 L (13.0-17.5) gm/dL Hct 36.7 L (39.0-53.0) % MCHC 30.8 L (31.0-37.0) g/dL Neutrophils # 23.4 H (1.3-7.7) k/uL Monocytes # 1.6 H (0-1.0) k/uL Microbiology - Last 24 Hours (Table) 06/26/24 14:37 Gram Stain - Preliminary Groin Wound Culture - Preliminary Proteus mirabilis Beta Hemolytic Strep Group C Assessment and Plan (1) Diarrhea Current Visit: Yes Status: Acute Code(s): R19.7 - DIARRHEA, UNSPECIFIED SNOMED Code(s): 05842835 (2) Cutaneous candidiasis Current Visit: Yes Status: Acute Code(s): B37.2 - CANDIDIASIS OF SKIN AND NAIL SNOMED Code(s): 54574473 (3) Leukocytosis (leucocytosis) Current Visit: Yes Status: Acute Code(s): D72.829 - ELEVATED WHITE BLOOD CELL COUNT, UNSPECIFIED SNOMED Code(s): 586265791 Plan: 1patient presented to hospital with acute nausea vomiting and diarrhea and this patient did have significant elevated white count with concern for possible infectious versus noninfectious diarrhea and concern for possible C. difficile however that has been ruled out with a negative C. difficile PCR as well as EIA 2-patient also have extensive cutaneous candidiasis to the groin fold as well as posterior thigh area 3- stool for C. difficile PCR came back negative 4-we will discontinue oral vancomycin and continue the patient nystatin powder to the groin fold area Sons at the bedside question concern answered Dictation was produced using [employer] dictation software. please excuse any grammatical, word or spelling errors. Time with Patient: Less than 30
--- NOTE | 2024-06-29 08:11 | P.PN ---
Subjective Progress Note Date: 06/28/24 Principal diagnosis: Reason for follow-up is leukocytosis diarrhea extensive excoriation of the groin and thigh Patient is a 63-year-old male past medical history difficult for hypertension sleep apnea reflux patient has been brought into the hospital concerning for nausea vomiting and diarrhea patient symptoms started the day before presentation to the hospital, patient did have a extensive excoriation of the bilateral groin posterior thigh area concerning for fungal dermatitis and also have significant diarrhea with elevated white count concerning for C. difficile On today's evaluation that is 06/28/2024, Patient is afebrile patient is currently on 2 L nasal oxygen and denies having any shortness of breath, the patient denies any chest pain or cough, the patient denies any nausea vomiting did not have any abdominal pain and diarrhea has slowed on palpation. Patient white count is slightly down to 24.97 creatinine 0.8 UA has been negative right leg wound culture with Proteus and strep Objective - Vital Signs Vital signs: Vital Signs Temp 98.4 F 06/28/24 20:00 Pulse 99 06/28/24 20:00 Resp 14 06/28/24 20:00 BP 142/76 06/28/24 20:00 Pulse Ox 96 06/28/24 20:00 FiO2 Intake & Output 06/28/24 06/28/24 06/29/24 06:59 18:59 06:59 Intake Total 540 Output Total 1650 Balance -1110 Intake: Oral 540 Output: Urine 1650 Other: Voiding Method Urinal Urinal # Voids 4 - Exam GENERAL DESCRIPTION: An elderly male lying in bed in no distress RESPIRATORY SYSTEM: Unlabored breathing , decreased breath sounds at bases HEART: S1 S2 regular rate and rhythm , ABDOMEN: Soft , no tenderness EXTREMITIES: Extensive discoloration of the bilateral groin right posterior thigh did have some superficial wound and redness - Labs CBC & Chem 7: 06/28/24 02:53 06/28/24 02:53 Labs: Abnormal Lab Results - Last 24 Hours (Table) 06/28/24 Range/Units 02:53 WBC 24.97 H (4.50-10.00) X 10*3/uL RBC 4.14 L (4.40-5.60) X 10*6/uL Hgb 11.3 L (13.0-17.0) g/dL Hct 36.5 L (39.6-50.0) % MCHC 31.0 L (32.0-37.0) g/dL RDW 14.6 H (11.5-14.5) % Immature Gran # 0.20 H (0.00-0.04) X 10*3/uL Neutrophils # 19.88 H (1.80-7.70) X 10*3/uL Monocytes # 2.33 H (0.20-1.00) X 10*3/uL Microbiology - Last 24 Hours (Table) 06/26/24 14:37 Stool Culture - Preliminary Stool 06/26/24 14:37 Gram Stain - Final Groin Wound Culture - Final Proteus mirabilis Beta Hemolytic Strep Group C 06/26/24 14:37 Urine Culture - Preliminary Urine,Ureter Gram Neg Bacilli 06/26/24 14:32 Blood Culture - Preliminary Blood Assessment and Plan (1) Diarrhea Current Visit: Yes Status: Acute Code(s): R19.7 - DIARRHEA, UNSPECIFIED SNOMED Code(s): 33615072 (2) Cutaneous candidiasis Current Visit: Yes Status: Acute Code(s): B37.2 - CANDIDIASIS OF SKIN AND NAIL SNOMED Code(s): 92227763 (3) Leukocytosis (leucocytosis) Current Visit: Yes Status: Acute Code(s): D72.829 - ELEVATED WHITE BLOOD CELL COUNT, UNSPECIFIED SNOMED Code(s): 707690299 Plan: 1patient presented to hospital with acute nausea vomiting and diarrhea and this patient did have significant elevated white count with concern for possible infectious versus noninfectious diarrhea and concern for possible C. difficile however that has been ruled out with a negative C. difficile PCR as well as EIA 2-patient also have extensive cutaneous candidiasis to the groin fold as well as posterior thigh area 3- stool for C. difficile PCR came back negative 4-culture from the right posterior leg now coming back positive with a Proteus and strep cefazolin has been added continue with the nystatin powder and will watch his clinical course closely Dictation was produced using [employer] software. please excuse any grammatical, word or spelling errors. Time with Patient: Less than 30
[2024-06-29 12:41] LABS: Basophils # (A) 0.07 X 10*3/uL (0.00-0.10); Basophils % (A) 0.5 %; Eosinophils # (A) 0.76 X 10*3/uL (0.04-0.35); Eosinophils % (A) 5.4 %; HCT 39.2 % (39.6-50.0); HGB 11.6 g/dL (13.0-17.0); Lymphocytes # (A) 1.75 X 10*3/uL (0.90-5.00); Lymphocytes % (A) 12.5 %; MCH 26.7 pg (27.0-32.0); MCHC 29.6 g/dL (32.0-37.0); MCV 90.3 FL (80.0-97.0); Mean Platelet Volume 10.4 FL (9.5-12.2); Monocytes # (A) 1.43 X 10*3/uL (0.20-1.00); Monocytes % (A) 10.2 %; NRBC Per 100 WBC 0 X 10*3/uL (0.00-0.01); Neutrophils % (A) 70.5 %; Platelet Count 403 X 10*3/uL (140-440); RBC 4.34 X 10*6/uL (4.40-5.60); RDW 14.5 % (11.5-14.5); WBC 14.03 X 10*3/uL (4.50-10.00)
[2024-06-29 12:51] LABS: BUN/Creat Ratio 11.88 Ratio (12.00-20.00); Blood Urea Nitrogen 9.5 mg/dL (9.0-27.0); Calcium 8.7 mg/dL (8.7-10.3); Carbon Dioxide 24.7 mmol/L (21.6-31.8); Chloride 105 mmol/L (96-109); Glucose 79 mg/dL (70-110); Potassium 4.2 mmol/L (3.5-5.5); Sodium 139 mmol/L (135-145)
--- NOTE | 2024-06-29 14:58 | P.PN ---
Subjective Progress Note Date: 06/29/24 SURGICAL PROGRESS NOTE CHIEF COMPLAINT: Diarrhea HISTORY OF PRESENT ILLNESS: Patient reports the diarrhea has resolved. He is tolerating clear liquid diet. He denies any nausea or vomiting. Denies any abdominal pain. Afebrile. WBC is down from 24-14 PHYSICAL EXAM: VITAL SIGNS: Reviewed. GENERAL: Well-developed in no acute distress. ABDOMEN: Soft. Nondistended. Nontender. Obese NEUROLOGIC: Alert and oriented. Cranial nerves II through XII grossly intact. ASSESSMENT: 1. Diarrhea resolved 2. Severe cutaneous candidiasis PLAN: -No plans for colonoscopy during this admission -Diarrhea has resolved. Will advance diet to regular -Surgical service will sign off. Please call with any questions or concerns Physician Digital Asset Coordinator note has been reviewed by physician. Signing provider agrees with the documented findings, assessment, and plan of care. As above. Please see additional documentation below. Patient has been observed for 24 to 48 hours with improvement of diarrhea. No acute surgical invention needed at this time. Surgery service will sign off. Please reconsult if needed. Objective - Vital Signs Vital signs: Vital Signs Temp 98.5 F 06/29/24 12:02 Pulse 97 06/29/24 12:02 Resp 18 06/29/24 12:02 BP 146/69 06/29/24 12:02 Pulse Ox 93 L 06/29/24 12:02 FiO2 Intake & Output 06/28/24 06/29/24 06/29/24 18:59 06:59 18:59 Intake Total 1780 Output Total 950 500 Balance 830 -500 Intake: Intake, IV Titration 700 Amount Sodium Chloride 0.9% 1, 600 000 ml @ 50 mls/hr IV . Q20H MELANI Rx#:[id number] ceFAZolin 3 gm In Sodium 100 Chloride 0.9% 100 ml @ 200 mls/hr IVPB Q8HR MELANI Rx#:[id number] Oral 1080 Output: Urine 800 500 Stool 150 Other: Voiding Method Urinal # Voids 4 - Labs CBC & Chem 7: 06/29/24 07:09 06/29/24 07:09 Labs: Abnormal Lab Results - Last 24 Hours (Table) 06/29/24 06/29/24 Range/Units 07:09 07:09 WBC 14.03 H (4.50-10.00) X 10*3/uL RBC 4.34 L (4.40-5.60) X 10*6/uL Hgb 11.6 L (13.0-17.0) g/dL Hct 39.2 L (39.6-50.0) % MCH 26.7 L (27.0-32.0) pg MCHC 29.6 L (32.0-37.0) g/dL Immature Gran # 0.12 H (0.00-0.04) X 10*3/uL Neutrophils # 9.90 H (1.80-7.70) X 10*3/uL Monocytes # 1.43 H (0.20-1.00) X 10*3/uL Eosinophils # 0.76 H (0.04-0.35) X 10*3/uL BUN/Creatinine Ratio 11.88 L (12.00-20.00) Ratio Microbiology - Last 24 Hours (Table) 06/26/24 14:37 Stool Culture - Preliminary Stool 06/26/24 14:37 Urine Culture - Final Urine,Ureter Proteus mirabilis 06/26/24 14:32 Blood Culture - Preliminary Blood
--- NOTE | 2024-06-30 00:52 | PN ---
PROGRESS NOTE DATE OF SERVICE: 06/29/2024 SUBJECTIVE: This is a 63-year-old gentleman, who was admitted with significant cutaneous candidiasis and infection, also had diarrhea. Infectious Disease is following the patient closely. The patient is currently on empiric cefazolin, is improving significantly. No chest pain. No palpitation. OBJECTIVE: VITAL SIGNS: Pulse is 97, blood pressure 140/69, respirations 18. CHEST: Clear to auscultation. CARDIOVASCULAR: S1, S2. ABDOMEN: Soft. LEGS: No edema. NERVOUS SYSTEM: Nonfocal. LABORATORY: WBC 14.03. ASSESSMENT: 1. Nausea, vomiting, diarrhea, possibly antibiotic associated diarrhea, improving. 2. Acute renal failure with severe metabolic acidosis with lactic acidosis, present on admission. 3. Cutaneous candidiasis. 4. Elevated WBC. 5. Gastroesophageal reflux disease. 6. Hypertension. 7. Obesity. RECOMMENDATIONS: Recommend to continue current management and continue symptomatic treatment. Otherwise, repeat labs. Closely monitor. Closely follow with Infectious Disease. Further recommendations to follow. MMODL / IJN: [id number] /
[2024-06-30 10:57] LABS: Basophils # (A) 0.12 X 10*3/uL (0.00-0.10); Basophils % (A) 0.8 %; Eosinophils # (A) 1.12 X 10*3/uL (0.04-0.35); Eosinophils % (A) 7.1 %; HGB 11.2 g/dL (13.0-17.0); Lymphocytes # (A) 2.23 X 10*3/uL (0.90-5.00); Lymphocytes % (A) 14.2 %; MCH 27.1 pg (27.0-32.0); MCHC 31.1 g/dL (32.0-37.0); Mean Platelet Volume 10.1 FL (9.5-12.2); Monocytes % (A) 10.2 %; NRBC Per 100 WBC 0 X 10*3/uL (0.00-0.01); Neutrophils # (A) 10.34 X 10*3/uL (1.80-7.70); Platelet Count 395 X 10*3/uL (140-440); RBC 4.14 X 10*6/uL (4.40-5.60); WBC 15.68 X 10*3/uL (4.50-10.00)
[2024-06-30 11:04] LABS: BUN/Creat Ratio 11.71 Ratio (12.00-20.00); Blood Urea Nitrogen 8.2 mg/dL (9.0-27.0); Calcium 8.5 mg/dL (8.7-10.3); Carbon Dioxide 25.1 mmol/L (21.6-31.8); Chloride 107 mmol/L (96-109); Glucose 100 mg/dL (70-110); Potassium 3.9 mmol/L (3.5-5.5); Sodium 140 mmol/L (135-145)
--- NOTE | 2024-06-30 14:26 | P.PN ---
Subjective Progress Note Date: 06/29/24 Principal diagnosis: Reason for follow-up is leukocytosis diarrhea extensive excoriation of the groin and thigh Patient is a 63-year-old male past medical history difficult for hypertension sleep apnea reflux patient has been brought into the hospital concerning for nausea vomiting and diarrhea patient symptoms started the day before presentation to the hospital, patient did have a extensive excoriation of the bilateral groin posterior thigh area concerning for fungal dermatitis and also have significant diarrhea with elevated white count concerning for C. difficile On today's evaluation that is 06/29/2024, patient has been afebrile, patient is breathing comfortably and is currently on room air, patient denies having any significant cough no chest pain, patient denies nausea vomiting and no abdominal pain, patient diarrhea has slowed down pain to the groin and posterior thigh has decreased. Patient white count is down to 14.03 creatinine 0.8 Objective - Vital Signs Vital signs: Vital Signs Temp 98.4 F 06/29/24 07:02 Pulse 87 06/29/24 07:02 Resp 20 06/29/24 07:02 BP 155/78 06/29/24 07:02 Pulse Ox 96 06/29/24 07:02 FiO2 Intake & Output 06/28/24 06/29/24 06/29/24 18:59 06:59 18:59 Intake Total 1780 Output Total 950 500 Balance 830 -500 Intake: Intake, IV Titration 700 Amount Sodium Chloride 0.9% 1, 600 000 ml @ 50 mls/hr IV . Q20H MELANI Rx#:[id number] ceFAZolin 3 gm In Sodium 100 Chloride 0.9% 100 ml @ 200 mls/hr IVPB Q8HR MELANI Rx#:[id number] Oral 1080 Output: Urine 800 500 Stool 150 Other: Voiding Method Urinal # Voids 4 - Exam GENERAL DESCRIPTION: An elderly male lying in bed in no distress RESPIRATORY SYSTEM: Unlabored breathing , decreased breath sounds at bases HEART: S1 S2 regular rate and rhythm , ABDOMEN: Soft , no tenderness EXTREMITIES: Extensive discoloration of the bilateral groin right posterior thigh did have some superficial wound and redness - Labs CBC & Chem 7: 06/30/24 06:28 06/30/24 06:28 Labs: Abnormal Lab Results - Last 24 Hours (Table) 06/29/24 Range/Units 07:09 WBC 14.03 H (4.50-10.00) X 10*3/uL RBC 4.34 L (4.40-5.60) X 10*6/uL Hgb 11.6 L (13.0-17.0) g/dL Hct 39.2 L (39.6-50.0) % MCH 26.7 L (27.0-32.0) pg MCHC 29.6 L (32.0-37.0) g/dL Immature Gran # 0.12 H (0.00-0.04) X 10*3/uL Neutrophils # 9.90 H (1.80-7.70) X 10*3/uL Monocytes # 1.43 H (0.20-1.00) X 10*3/uL Eosinophils # 0.76 H (0.04-0.35) X 10*3/uL Microbiology - Last 24 Hours (Table) 06/26/24 14:37 Stool Culture - Preliminary Stool 06/26/24 14:37 Urine Culture - Final Urine,Ureter Proteus mirabilis 06/26/24 14:32 Blood Culture - Preliminary Blood 06/26/24 14:37 Gram Stain - Final Groin Wound Culture - Final Proteus mirabilis Beta Hemolytic Strep Group C Assessment and Plan (1) Diarrhea Current Visit: Yes Status: Acute Code(s): R19.7 - DIARRHEA, UNSPECIFIED SNOMED Code(s): 26346514 (2) Cutaneous candidiasis Current Visit: Yes Status: Acute Code(s): B37.2 - CANDIDIASIS OF SKIN AND NAIL SNOMED Code(s): 41967302 (3) Leukocytosis (leucocytosis) Current Visit: Yes Status: Acute Code(s): D72.829 - ELEVATED WHITE BLOOD CELL COUNT, UNSPECIFIED SNOMED Code(s): 442155419 Plan: 1patient presented to hospital with acute nausea vomiting and diarrhea and this patient did have significant elevated white count with concern for possible infectious versus noninfectious diarrhea and concern for possible C. difficile however that has been ruled out with a negative C. difficile PCR as well as EIA 2-patient also have extensive cutaneous candidiasis to the groin fold as well as posterior thigh area 3- stool for C. difficile PCR came back negative 4-culture from the right posterior leg now coming back positive with a Proteus and strep, patient started on cefazolin the patient white count is trending down we will continue with cefazolin along with with the nystatin powder and will watch his clinical course closely Dictation was produced using [employer] dictation software. please excuse any grammatical, word or spelling errors. Time with Patient: Less than 30
--- NOTE | 2024-06-30 14:27 | P.PN ---
Subjective Progress Note Date: 06/30/24 Principal diagnosis: Reason for follow-up is leukocytosis diarrhea extensive excoriation of the groin and thigh Patient is a 63-year-old male past medical history difficult for hypertension sleep apnea reflux patient has been brought into the hospital concerning for nausea vomiting and diarrhea patient symptoms started the day before presentation to the hospital, patient did have a extensive excoriation of the bilateral groin posterior thigh area concerning for fungal dermatitis and also have significant diarrhea with elevated white count concerning for C. difficile On today's evaluation that is 06/30/2024, the patient continues to be afebrile he is breathing comfortably currently on room air patient denies having any chest pain shortness of breath or cough no nausea noted no abdominal pain diarrhea slowed pain to the groin and posterior thigh has decreased in intensity. The patient white count slightly up to 15.68 today creatinine 0.7 Objective - Vital Signs Vital signs: Vital Signs Temp 98.7 F 06/30/24 13:29 Pulse 99 06/30/24 13:29 Resp 18 06/30/24 13:29 BP 154/79 06/30/24 13:29 Pulse Ox 97 06/30/24 13:29 FiO2 Intake & Output 06/29/24 06/30/24 06/30/24 18:59 06:59 18:59 Intake Total 1240 Output Total 900 750 Balance -900 490 Intake: Intake, IV Titration 700 Amount Sodium Chloride 0.9% 1, 600 000 ml @ 50 mls/hr IV . Q20H MELANI Rx#:[id number] ceFAZolin 3 gm In Sodium 100 Chloride 0.9% 100 ml @ 200 mls/hr IVPB Q8HR MELANI Rx#:[id number] Oral 540 Output: Urine 900 550 Stool 200 Other: Voiding Method Urinal Urinal - Exam GENERAL DESCRIPTION: An elderly male lying in bed in no distress RESPIRATORY SYSTEM: Unlabored breathing , decreased breath sounds at bases HEART: S1 S2 regular rate and rhythm , ABDOMEN: Soft , no tenderness EXTREMITIES: Extensive discoloration of the bilateral groin right posterior thigh did have some superficial wound and redness - Labs CBC & Chem 7: 06/30/24 06:28 06/30/24 06:28 Labs: Abnormal Lab Results - Last 24 Hours (Table) 06/30/24 06/30/24 Range/Units 06:28 06:28 WBC 15.68 H (4.50-10.00) X 10*3/uL RBC 4.14 L (4.40-5.60) X 10*6/uL Hgb 11.2 L (13.0-17.0) g/dL Hct 36.0 L (39.6-50.0) % MCHC 31.1 L (32.0-37.0) g/dL Immature Gran # 0.27 H (0.00-0.04) X 10*3/uL Neutrophils # 10.34 H (1.80-7.70) X 10*3/uL Monocytes # 1.60 H (0.20-1.00) X 10*3/uL Eosinophils # 1.12 H (0.04-0.35) X 10*3/uL Basophils # 0.12 H (0.00-0.10) X 10*3/uL BUN 8.2 L (9.0-27.0) mg/dL BUN/Creatinine Ratio 11.71 L (12.00-20.00) Ratio Calcium 8.5 L (8.7-10.3) mg/dL Microbiology - Last 24 Hours (Table) 06/26/24 14:37 Stool Culture - Final Stool Assessment and Plan (1) Diarrhea Current Visit: Yes Status: Acute Code(s): R19.7 - DIARRHEA, UNSPECIFIED SNOMED Code(s): 16205185 (2) Cutaneous candidiasis Current Visit: Yes Status: Acute Code(s): B37.2 - CANDIDIASIS OF SKIN AND NAIL SNOMED Code(s): 76257210 (3) Leukocytosis (leucocytosis) Current Visit: Yes Status: Acute Code(s): D72.829 - ELEVATED WHITE BLOOD CELL COUNT, UNSPECIFIED SNOMED Code(s): 880384555 Plan: 1patient presented to hospital with acute nausea vomiting and diarrhea and this patient did have significant elevated white count with concern for possible infectious versus noninfectious diarrhea and concern for possible C. difficile however that has been ruled out with a negative C. difficile PCR as well as EIA 2-patient also have extensive cutaneous candidiasis to the groin fold as well as posterior thigh area 3- stool for C. difficile PCR came back negative 4-culture from the right posterior leg now coming back positive with a Proteus and strep 5-patient is tolerating improvement patient white count trending down slightly up today we will monitor closely we will treat the patient with cefazolin along with with the nystatin powder and will watch his clinical course closely sons at the bedside question answered Dictation was produced using [employer] dictation software. please excuse any grammatical, word or spelling errors. Time with Patient: Less than 30
[2024-06-30] MEDS: MULTIVITAMINS, THERA 1 EACH TAB PO SCH (14:33)
--- NOTE | 2024-06-30 20:04 | PN ---
PROGRESS NOTE DATE OF SERVICE: 06/30/2024 SUBJECTIVE: This is a 63-year-old gentleman admitted with nausea, vomiting, diarrhea, and cellulitis. He is extremely weak also. No chest pain. No palpitation. ECF rehab is being planned. OBJECTIVE: VITAL SIGNS: Pulse is 88, blood pressure 164/78. CHEST: A few scattered rhonchi and crackles. ABDOMEN: Soft, obese. LEGS: Cellulitis present. LABORATORY DATA: WBC 15.68. ASSESSMENT: 1. Nausea, vomiting, diarrhea, possibly antibiotic associated diarrhea, improved. 2. Acute renal failure with severe metabolic acidosis with lactic acidosis, present on admission. 3. Cutaneous candidiasis. 4. Possible cellulitis in the inguinal area. 5. Increased WBC. 6. Gait dysfunction. 7. Gastroesophageal reflux disease. 8. Multiple complex medical issues. RECOMMENDATIONS: Recommend to continue current management and continue symptomatic treatment. Repeat labs. We will closely monitor. PT, OT evaluation, possible ECF rehab. Further recommendations to follow. MMODL / IJN: [id number] /
[2024-07-01 04:52] LABS: Cryptosporidium Antigen Negative (Negative)
[2024-07-01 11:52] LABS: Basophils # (A) 0.1 k/uL (0-0.2); Basophils % (A) 1 %; Eosinophils % (A) 6 %; HCT 35.7 % (39.0-53.0); HGB 11.4 gm/dL (13.0-17.5); Lymphocytes # (A) 2.2 k/uL (1.0-4.8); Lymphocytes % (A) 13 %; MCH 27.2 pg (25.0-35.0); MCHC 31.9 g/dL (31.0-37.0); MCV 85.3 fL (80.0-100.0); Mean Platelet Volume 7.2; Monocytes # (A) 1.1 k/uL (0-1.0); Monocytes % (A) 7 %; Neutrophils # (A) 11.8 k/uL (1.3-7.7); Neutrophils % (A) 71 %; Platelet Count 377 k/uL (150-450); RBC 4.18 m/uL (4.30-5.90); RDW 14.1 % (11.5-15.5); WBC 16.5 k/uL (3.8-10.6)
[2024-07-01 12:01] LABS: ALT 13 U/L (4-49); AST 20 U/L (17-59); African American GFR (CKD) >90 (>60 ml/min/1.73 sqM); Albumin 2.8 g/dL (3.5-5.0); Albumin/Globulin Ratio 0.9; Alkaline Phosphatase 69 U/L (38-126); Anion Gap 5 mmol/L; Blood Urea Nitrogen 10 mg/dL (9-20); Calcium 8.9 mg/dL (8.4-10.2); Carbon Dioxide 27 mmol/L (22-30); Chloride 108 mmol/L (98-107); Glucose 100 mg/dL (74-99); Non-African American GFR(CKD) >90 (>60 ml/min/1.73 sqM); Potassium 3.9 mmol/L (3.5-5.1); Sodium 140 mmol/L (137-145); Total Bilirubin <0.1 mg/dL (0.2-1.3); Total Protein 5.8 g/dL (6.3-8.2)
[2024-07-01] MEDS: METOPROLOL TARTRATE 25 MG TAB PO SCH (13:28)
--- NOTE | 2024-07-01 18:58 | PN ---
PROGRESS NOTE DATE OF SERVICE: 07/01/2024 SUBJECTIVE: This is a 63-year-old gentleman, who was admitted with nausea and diarrhea, also had significant infection and some diarrhea. C diff has been negative. No chest pain. No palpitation. PHYSICAL EXAMINATION: VITAL SIGNS: Pulse is 82, blood pressure 165/95, respiratory rate 20. CHEST: Clear. CARDIOVASCULAR: S1, S2. ABDOMEN: Soft. LABORATORY DATA: WBC 16.5 negative. ASSESSMENT: 1. Nausea, vomiting, diarrhea, possibly antibiotic-induced diarrhea, improving. 2. Acute renal failure with severe metabolic acidosis, lactic acidosis, present on admission. 3. Cutaneous candidiasis. 4. Possible cellulitis in the inguinal area. 5. Increased WBC. 6. Gait dysfunction. 7. Gastroesophageal reflux disease. RECOMMENDATIONS AND DISCUSSION: Recommend to continue current management and continue symptomatic treatment. Otherwise, recommend to increase the dose of lisinopril. Monitor blood pressure closely. Closely follow with Nephrology. Guarded prognosis. Further recommendations to follow. MMODL / IJN: [id number] / [facility]
[2024-07-02] MEDS: guaiFENesin SYRUP 100MG/5ML 200 MG/10 ML CUP PO PRN (00:59)
[2024-07-02] MEDS: MELATONIN 3 MG TABLET PO ONE (02:32)
--- NOTE | 2024-07-02 08:36 | P.PN ---
Subjective Progress Note Date: 07/01/24 Principal diagnosis: Reason for follow-up is leukocytosis diarrhea extensive excoriation of the groin and thigh Patient is a 63-year-old male past medical history difficult for hypertension sleep apnea reflux patient has been brought into the hospital concerning for nausea vomiting and diarrhea patient symptoms started the day before presentation to the hospital, patient did have a extensive excoriation of the bilateral groin posterior thigh area concerning for fungal dermatitis and also have significant diarrhea with elevated white count concerning for C. difficile On today's evaluation that is 07/01/2024,the patient denies any fever or any chills, patient is breathing comfortably on room air, the patient denies chest pain shortness of breath and no significant cough, patient denies abdominal pain, no nausea vomiting and diarrhea has not on. Patient white count 16.5, creatinine 0.62 Objective - Vital Signs Vital signs: Vital Signs Temp 98.8 F 07/01/24 13:41 Pulse 83 07/01/24 13:41 Resp 16 07/01/24 13:41 BP 156/71 07/01/24 13:41 Pulse Ox 96 07/01/24 13:41 FiO2 Intake & Output 06/30/24 07/01/24 07/01/24 18:59 06:59 18:59 Output Total 1100 500 850 Balance -1100 -500 -850 Output: Urine 1100 500 850 Other: Voiding Method Urinal Urinal Urinal Diaper Diaper External Catheter # Bowel Movements 1 - Exam GENERAL DESCRIPTION: An elderly male lying in bed in no distress RESPIRATORY SYSTEM: Unlabored breathing , decreased breath sounds at bases HEART: S1 S2 regular rate and rhythm , ABDOMEN: Soft , no tenderness EXTREMITIES: Extensive discoloration of the bilateral groin right posterior thigh did have some superficial wound and redness - Labs CBC & Chem 7: 07/01/24 11:19 07/01/24 11:19 Labs: Abnormal Lab Results - Last 24 Hours (Table) 07/01/24 07/01/24 Range/Units 11:19 11:19 WBC 16.5 H (3.8-10.6) k/uL RBC 4.18 L (4.30-5.90) m/uL Hgb 11.4 L (13.0-17.5) gm/dL Hct 35.7 L (39.0-53.0) % Neutrophils # 11.8 H (1.3-7.7) k/uL Monocytes # 1.1 H (0-1.0) k/uL Eosinophils # 1.0 H (0-0.7) k/uL Chloride 108 H (98-107) mmol/L Glucose 100 H (74-99) mg/dL Total Bilirubin <0.1 L (0.2-1.3) mg/dL Total Protein 5.8 L (6.3-8.2) g/dL Albumin 2.8 L (3.5-5.0) g/dL Assessment and Plan (1) Diarrhea Current Visit: Yes Status: Acute Code(s): R19.7 - DIARRHEA, UNSPECIFIED SNOMED Code(s): 23160275 (2) Cutaneous candidiasis Current Visit: Yes Status: Acute Code(s): B37.2 - CANDIDIASIS OF SKIN AND NAIL SNOMED Code(s): 43333593 (3) Leukocytosis (leucocytosis) Current Visit: Yes Status: Acute Code(s): D72.829 - ELEVATED WHITE BLOOD CELL COUNT, UNSPECIFIED SNOMED Code(s): 908828248 Plan: 1patient presented to hospital with acute nausea vomiting and diarrhea and this patient did have significant elevated white count with concern for possible infectious versus noninfectious diarrhea and concern for possible C. difficile however that has been ruled out with a negative C. difficile PCR as well as EIA 2-patient also have extensive cutaneous candidiasis to the groin fold as well as posterior thigh area 3- stool for C. difficile PCR came back negative 4-culture from the right posterior leg now coming back positive with a Proteus and strep, urine is growing Proteus 5-patient is did have some swelling improvement white count is trending down continue with the cefazolin will transition to oral antibiotics on discharge Dictation was produced using [employer] dictation software. please excuse any grammatical, word or spelling errors. Time with Patient: Less than 30
--- NOTE | 2024-07-02 11:07 | XR ---
EXAMINATION TYPE: XR chest 1V portable DATE OF EXAM: 07/02/2024 COMPARISON: 06/26/2024 CLINICAL INDICATION: Male, 63 years old with history of shortness of breath; , TECHNIQUE: XR chest 1V portable views of the chest. FINDINGS: Subsegmental changes bilateral lung bases. Mild coarsened interstitium.. Heart size normal and no ove rt failure. Osseous structures demonstrate hypertrophic and degenerative changes of the spine. IMPRESSION: 1. Mild interstitial prominence correlate for mild interstitial pneumonitis. Venous congestion felt l ess likely. Subsegmental changes along the bases of the lungs favor atelectasis over pneumonia. [facility], , 07/02/2024 11:05 AM
--- NOTE | 2024-07-02 12:42 | P.PN ---
Subjective Progress Note Date: 07/02/24 Principal diagnosis: Reason for follow-up is leukocytosis diarrhea extensive excoriation of the groin and thigh Patient is a 63-year-old male past medical history difficult for hypertension sleep apnea reflux patient has been brought into the hospital concerning for nausea vomiting and diarrhea patient symptoms started the day before presentation to the hospital, patient did have a extensive excoriation of the bilateral groin posterior thigh area concerning for fungal dermatitis and also have significant diarrhea with elevated white count concerning for C. difficile On today's evaluation that is 07/02/2024,the patient did have a low-grade fever of 99.98 2 AM the patient has been afebrile this morning, patient is on room air not requiring supplemental oxygen and denies any shortness of breath no chest pain or cough.Patient denies having any nausea or vomiting, no abdominal pain still having some diarrhea but overall output decreased per the nursing staff. No labs drawn today Objective - Vital Signs Vital signs: Vital Signs Temp 99.5 F 07/02/24 07:53 Pulse 92 07/02/24 07:53 Resp 18 07/02/24 07:53 BP 173/83 07/02/24 07:53 Pulse Ox 94 L 07/02/24 07:53 FiO2 Intake & Output 07/01/24 07/02/24 07/02/24 18:59 06:59 18:59 Intake Total 2542 590 Output Total 850 1150 250 Balance 1692 -560 -250 Intake: Intake, IV Titration 700 Amount Sodium Chloride 0.9% 1, 500 000 ml @ 50 mls/hr IV . Q20H MELANI Rx#:[id number] ceFAZolin 3 gm In Sodium 200 Chloride 0.9% 100 ml @ 200 mls/hr IVPB Q8HR MELANI Rx#:[id number] Oral 1842 590 Output: Urine 850 1150 250 Other: Voiding Method Urinal Urinal Urinal Diaper Diaper # Voids 1 # Bowel Movements 0 - Exam GENERAL DESCRIPTION: An elderly male lying in bed in no distress RESPIRATORY SYSTEM: Unlabored breathing , decreased breath sounds at bases HEART: S1 S2 regular rate and rhythm , ABDOMEN: Soft , no tenderness EXTREMITIES: Extensive discoloration of the bilateral groin right posterior thigh did have some superficial wound and redness - Labs CBC & Chem 7: 07/01/24 11:19 07/01/24 11:19 Labs: Microbiology - Last 24 Hours (Table) 06/26/24 14:32 Blood Culture - Final Blood Assessment and Plan (1) Diarrhea Current Visit: Yes Status: Acute Code(s): R19.7 - DIARRHEA, UNSPECIFIED SNOMED Code(s): 46527228 (2) Cutaneous candidiasis Current Visit: Yes Status: Acute Code(s): B37.2 - CANDIDIASIS OF SKIN AND NAIL SNOMED Code(s): 25687786 (3) Leukocytosis (leucocytosis) Current Visit: Yes Status: Acute Code(s): D72.829 - ELEVATED WHITE BLOOD CELL COUNT, UNSPECIFIED SNOMED Code(s): 152785022 Plan: 1patient presented to hospital with acute nausea vomiting and diarrhea and this patient did have significant elevated white count with concern for possible infectious versus noninfectious diarrhea and concern for possible C. difficile however that has been ruled out with a negative C. difficile PCR as well as EIA 2-patient also have extensive cutaneous candidiasis to the groin fold as well as posterior thigh area 3- stool for C. difficile PCR came back negative 4-culture from the right posterior leg now coming back positive with a Proteus and strep, urine is growing Proteus 5-patient did have slight worsening of white count yesterday, white count from today is pending still have some diarrhea we will add Questran for symptomatic relief continue with the cefazolin to cover for the cellulitis as well as UTI Family at bedside questions answered Dictation was produced using [employer] dictation software. please excuse any grammatical, word or spelling errors. Time with Patient: Less than 30
[2024-07-02] MEDS: CHOLESTYRAMINE (WITH SUGAR) 4 GM PACKET PO SCH (13:38)
[2024-07-02] MEDS: FUROSEMIDE 10 MG/ML 4 ML VIAL IV STA (13:38)
[2024-07-02] MEDS: HEPARIN SODIUM,PORCINE 5,000 UNIT/ML 1 ML VIAL SQ SCH (13:43)
[2024-07-02 14:29] LABS: Influenza A Detected (Not Detectd); Influenza B Not Detected (Not Detectd); RSV Not Detected (Not Detectd)
[2024-07-02] MEDS: MELATONIN 3 MG TABLET PO SCH (20:26)
[2024-07-03] MEDS: ACETAMINOPHEN TAB 325 MG TAB PO PRN (01:34)
--- NOTE | 2024-07-03 05:10 | PN ---
PROGRESS NOTE DATE OF SERVICE: 07/02/2024 SUBJECTIVE: This is a 63-year-old gentleman admitted with nausea, vomiting, diarrhea, possibly antibiotic associated diarrhea, also had renal failure. The patient with gait dysfunction. The patient is complaining of some shortness of breath and as well as wheezing. The patient is running low-grade fever also. The chest x-ray was done today and reported as mild interstitial prominence. White count is elevated at 16.5. PAST MEDICAL HISTORY: Reviewed. REVIEW OF SYSTEMS: Negative except as mentioned earlier. CURRENT MEDICATIONS: Reviewed. PHYSICAL EXAMINATION: VITAL SIGNS: Pulse is 92, blood pressure 173/83, respirations 18. HEENT: Conjunctivae normal. NECK: No JVD. CARDIOVASCULAR: S1, S2. RESPIRATIONS: Breath sounds diminished at the bases. A few scattered rhonchi. ABDOMEN: Soft, obese. LEGS: No edema. NERVOUS SYSTEM: Nonfocal. LABORATORY DATA: WBC 14.2, hemoglobin 11.6. ASSESSMENT: 1. Nausea, vomiting, diarrhea, possibly antibiotic-induced diarrhea, improving. 2. Mild fever, rule out pneumonia. 3. Severe bronchospasm. 4. Acute renal failure with severe metabolic acidosis, lactic acidosis, present on admission. 5. Cutaneous candidiasis. 6. Possible cellulitis in the inguinal area. 7. Increased WBC. 8. Gait dysfunction. 9. Gastroesophageal reflux disease. RECOMMENDATIONS: Recommend to continue current medications and continue symptomatic treatment. Otherwise, I would also recommend a single dose of Lasix and a BNP. 2D echo with Doppler and complete cardiac workup also. Add bronchodilators to the current regimen. Closely follow with multiple consultants. The patient is started on cefazolin by Infectious Disease. We will continue to monitor. Further recommendations to follow. White count is improving. MMODL / IJN: [id number] /
[2024-07-03 08:44] LABS: HCT 38.3 % (39.6-50.0); MCH 27.1 pg (27.0-32.0); MCHC 31.3 g/dL (32.0-37.0); MCV 86.5 FL (80.0-97.0); Mean Platelet Volume 10.1 FL (9.5-12.2); NRBC Per 100 WBC 0 X 10*3/uL (0.00-0.01); Platelet Count 318 X 10*3/uL (140-440); RBC 4.43 X 10*6/uL (4.40-5.60); RDW 14.6 % (11.5-14.5); WBC 14.61 X 10*3/uL (4.50-10.00)
[2024-07-03 09:09] LABS: ALT 17 U/L (10-49); AST 36 U/L (14-35); Albumin 3.1 g/dL (3.8-4.9); Albumin/Globulin Ratio 0.94 Ratio (1.60-3.17); Alkaline Phosphatase 62 U/L (41-126); Blood Urea Nitrogen 11.8 mg/dL (9.0-27.0); Calcium 8.6 mg/dL (8.7-10.3); Carbon Dioxide 26.6 mmol/L (21.6-31.8); Chloride 98 mmol/L (96-109); Globulin 3.3 g/dL (1.6-3.3); Glucose 89 mg/dL (70-110); Potassium 4.5 mmol/L (3.5-5.5); Sodium 136 mmol/L (135-145); Total Bilirubin 0.3 mg/dL (0.3-1.2); Total Protein 6.4 g/dL (6.2-8.2)
[2024-07-03 09:42] LABS: Basophils # (M) 0.15 X 10*3/uL (0.00-0.10); Eosinophils # (M) 0 X 10*3/uL (0.04-0.35); Lymphocytes # (M) 0.44 X 10*3/uL (0.90-5.00); Metamyelocytes % 2 % (0-0); Monocytes # (M) 1.46 X 10*3/uL (0.20-1.00); Myelocytes % 2 % (0-0); Neutrophils # (M) 11.98 X 10*3/uL (1.80-7.70); Neutrophils % (M) 82 %; Nucleated Red Blood Cells 1 /100 WBCS
--- NOTE | 2024-07-03 11:41 | CA ---
Transthoracic Echo Report Name: Bryan Ferrell Age: 63 Gender: M : 1960 Exam Date: 07/03/2024 10:16 Exam Location: [facility] Ht (in): 66 Wt (lb): 419 Ordering Physician: Nicolette Cote MD Attending/Referring Phys: Security Test Engineer K[place]um Camp RDCS Procedure CPT: Indications: chf Cardiac Hx: No IV access for definity use. Best imaging window subcostal; limited. Technical Quality: Very technically difficult study Contrast 1: Total Dose (mL): Contrast 2: Total Dose (mL): MEASUREMENTS (Male / Female) Normal Values DOPPLER AV Peak Velocity 169.0 cm/s AV Peak Gradient 11.4 mmHg AV Mean Velocity 126.2 cm/s AV Mean Gradient 6.9 mmHg AV Velocity Time Integral 30.3 cm LVOT Peak Velocity 108.6 cm/s LVOT Peak Gradient 4.7 mmHg LVOT Velocity Time Integral 18.9 cm Mitral E Point Velocity 109.2 cm/s Mitral A Point Velocity 63.6 cm/s Mitral E to A Ratio 1.7 MV Deceleration Time 199.6 ms PV Peak Velocity 80.1 cm/s PV Peak Gradient 2.6 mmHg FINDINGS Left Ventricle Left ventricle not well visualized. Right Ventricle Right ventricle not well visualized. Right Atrium Unable to assess right atrial size. Left Atrium Unable to assess left atrial size. Mitral Valve Structurally normal mitral valve. No mitral stenosis, regurgitation or prolapse. Aortic Valve Aortic valve not well visualized. No aortic valve stenosis or regurgitation. Tricuspid Valve Tricuspid valve not well visualized. No tricuspid stenosis, regurgitation or prolapse. Pulmonic Valve Pulmonic valve not well visualized. No pulmonic stenosis. No pulmonic regurgitation. Pericardium No pericardial effusion. Aorta Aortic root and proximal ascending aorta not well visualized. CONCLUSIONS Technically suboptimal and incomplete study done in a markedly overweight patient Overall LV systolic function seems preserved Right ventricle seems of normal size Previewed by: Dr. Bryan Fernandes MD (Electronically Signed) Final Date: 03 July 2024 11:40
--- NOTE | 2024-07-03 13:00 | P.CON ---
Consult Note - . Consult date: 07/03/24 Assessment/Plan:: wound care consultation: Reason for consultation: Ulceration right thigh. History chief complaint: This gentleman is currently admitted to the hospital for nausea vomiting and diarrhea. His most dramatic comorbidity is super morbid obesity. In fact it has essentially altered his anatomy in such a waythat there is some confusion as to whether the ulcer in question is on his buttocks or thigh. It has only recently been discovered. He also has an area of redness around his back and upper thighs posteriorly, highly suspicious for candidiasis. Relevant physical examination: On, what I assume is his posterior upper thigh on the right is a 4 x 2.5 cm ulceration which is about 0.2 cm in depth. Recommendation: The patient is already receiving ointment as treatment for his candidiasis. The ulcer in question I would simply utilize protective zinc cream such as triad and covered with a border foam. Also avoiding significant pressure in this area would be beneficial.
[2024-07-03] MEDS: OSELTAMIVIR 75 MG CAP PO SCH (13:34)
[2024-07-03 13:42] VITALS: BMI 67.6
[2024-07-04 04:33] LABS: African American GFR (CKD) >90 (>60 ml/min/1.73 sqM); Anion Gap 1 mmol/L; Blood Urea Nitrogen 18 mg/dL (9-20); Calcium 8.7 mg/dL (8.4-10.2); Carbon Dioxide 29 mmol/L (22-30); Chloride 103 mmol/L (98-107); Glucose 91 mg/dL (74-99); Non-African American GFR(CKD) >90 (>60 ml/min/1.73 sqM); Potassium 4.1 mmol/L (3.5-5.1); Sodium 133 mmol/L (137-145)
--- NOTE | 2024-07-04 07:23 | P.DS ---
Providers Date of admission: 06/26/24 06:19 Expected date of discharge: 07/03/24 Attending physician: Nicolette Cote Consults: 06/26/24 09:29 Consult Physician Urgent Consulting Provider: Danette Askew Consult Reason/Comments: multiple wounds Do you want consulting provider notified?: Yes 06/26/24 14:05 Consult Physician Routine Consulting Provider: Gal Ontiveros Consult Reason/Comments: arf Do you want consulting provider notified?: Yes Primary care physician: Jone Gregorio MD Hospital Course: Final diagnosis Nausea, vomiting, diarrhea, likely secondary to acute influenza A Mild fever, likely secondary to influenza Severe bronchospasm, improved Acute renal failure with severe metabolic acidosis, lactic acidosis, present on admission Cutaneous candidiasis Acute cellulitis in the inguinal area, present on admission Gait dysfunction with generalized weakness GERD Morbid obesity with a BMI of 67.6 GI prophylaxis DVT prophylaxis Full code Discharge disposition Patient is being discharged in a stable condition with guarded prognosis to [facility] on the grants pass. Patient will follow-up with Dr. Gregorio in the outpatient setting upon discharge. Patient is to continue with oral Keflex 500 mg 3 times daily for 1 week along with oral Diflucan daily and close outpatient follow-up with the wound care center as scheduled. Total time taken is greater than 35 minutes. Hospital course This is a [id number] male who was recently admitted with nausea and vomiting and diarrhea with generalized weakness being closely monitored. Patient with significant cutaneous candidiasis with concerns of cellulitis in all the inguinal folds and lower extremities and buttock area. Patient maintained on IV antibiotics along with wound care with infectious disease following and will continue on oral Keflex for 1 week and also Diflucan and nystatin for a week as well. Patient to follow-up with the wound care center on discharge. Patient was also having a cough with some low-grade fevers and bodyaches and was tested positive for influenza A. Patient is continued on Tamiflu twice daily and will continue a 5-day course on discharge. Patient with significant weakness will be going to [facility] and has been accepted at [facility]. Currently awaiting insurance authorization and patient also has [id number] co-pay expenses that him and family are agreeable to. Patient has been cleared by consultations. Please refer to consultation notes for further HPI. Currently no reports of chest pain, shortness of breath, or palpitations. Patient is afebrile. No reports of nause a or vomiting and patient is tolerating diet. Patient will be going to [facility] on the cool today. Guarded prognosis Physical exam: Gen: This is a 63-year-old male who is awake, alert and oriented x 3, well- developed, elderly appearing, morbidly obese HEENT: Head is atraumatic, normocephalic. Pupils equal, round. Sclerae is anicteric. NECK: Supple. No JVD. No lymphadenopathy. No thyromegaly. LUNGS: Diminished breath sounds bilaterally with diffuse scattered rhonchi. No intercostal retractions. HEART: S1, S2 are muffled ABDOMEN: Soft. Morbidly obese bowel sounds are present. No masses. No tenderness. EXTREMITIES: No pedal edema. No calf tenderness. Edematous with extremely large body habitus NEUROLOGICAL: Patient is awake, alert and oriented x3. Cranial nerves 2 through 12 are grossly intact. Diffusely weak Please refer to medication reconciliation sheet for a list of medications. The impression and plan of care has been dictated by Jayla Cameron Nurse Pract itioner as directed. Dr. Rocael MD I have performed a history and examination and MDM of this patient, discussed the same with the dictator, and agree with the dictator's assessment and plan as written ,documented as a scribe. Based on total visit time, I have performed more than 50% of the visit. Patient Condition at Discharge: Fair Plan - Discharge Summary Discharge Rx Participant: Yes New Discharge Prescriptions: New Loperamide [Imodium] 2 mg PO QID PRN cap PRN Reason: Diarrhea Nystatin 100,000Unit/gm Cream [Mycostatin Cream] 1 applic TOPICAL BID each Nystatin 100,000 Unit/gm Powd [Mycostatin Powder] 1 applic TOPICAL BID 7 Days #14 each Cholestyramine (with Sugar) [Questran Packet] 4 gm PO BID@1000,1800 packet Fluconazole [Diflucan] 150 mg PO DAILY 3 Days #3 tab Heparin Sodium,Porcine (1 ml) [Heparin Sodium] 5,000 unit SQ Q12HR each Cephalexin [Keflex] 500 mg PO Q8HR 7 Days #21 cap Metoprolol Tartrate [Lopressor] 25 mg PO BID tab Melatonin 6 mg PO HS tab Multivitamins, Thera [Multivitamin (formulary)] 1 each PO DAILY@1200 tab HYDROcodone/APAP 5-325MG [[place] 5-325] 1 each PO Q6HR PRN #4 tab PRN Reason: Pain guaiFENesin SYRUP 100MG/5ML [Robitussin] 200 mg PO Q6HR PRN ml PRN Reason: Cough Oseltamivir [Tamiflu] 75 mg PO Q12HR 5 Days #10 cap Acetaminophen Tab [Tylenol] 650 mg PO Q6HR PRN tab PRN Reason: Fever And/ Or Pain Continue Aspirin [Adult Low Dose Aspirin EC] 81 mg PO DAILY lisinopriL [Zestril] 20 mg PO DAILY Prochlorperazine [Compazine] 5 mg PO TID PRN PRN Reason: Nausea Polymyxin B-Trimeth Sulf Ophth [Polytrim Opthalmic] 1 drop BOTH EYES Q6H Pantoprazole Sodium [Protonix] 40 mg PO DAILY Atorvastatin [Lipitor] 40 mg PO DAILY Discharge Medication List Aspirin [Adult Low Dose Aspirin EC] 81 mg PO DAILY 09/13/17 [History] Atorvastatin [Lipitor] 40 mg PO DAILY 06/26/24 [History] Pantoprazole Sodium [Protonix] 40 mg PO DAILY 06/26/24 [History] Polymyxin B-Trimeth Sulf Ophth [Polytrim Opthalmic] 1 drop BOTH EYES Q6H 06/26/24 [History] Prochlorperazine [Compazine] 5 mg PO TID PRN 06/26/24 [History] lisinopriL [Zestril] 20 mg PO DAILY 06/26/24 [History] Acetaminophen Tab [Tylenol] 650 mg PO Q6HR PRN tab 07/03/24 [Rx] Cephalexin [Keflex] 500 mg PO Q8HR 7 Days #21 cap 07/03/24 [Rx] Cholestyramine (with Sugar) [Questran Packet] 4 gm PO BID@1000,1800 packet 07/03/24 [Rx] Fluconazole [Diflucan] 150 mg PO DAILY 3 Days #3 tab 07/03/24 [Rx] HYDROcodone/APAP 5-325MG [[place] 5-325] 1 each PO Q6HR PRN #4 tab 07/03/24 [Rx] Heparin Sodium,Porcine (1 ml) [Heparin Sodium] 5,000 unit SQ Q12HR each 07/03/24 [Rx] Loperamide [Imodium] 2 mg PO QID PRN cap 07/03/24 [Rx] Melatonin 6 mg PO HS tab 07/03/24 [Rx] Metoprolol Tartrate [Lopressor] 25 mg PO BID tab 07/03/24 [Rx] Multivitamins, Thera [Multivitamin (formulary)] 1 each PO DAILY@1200 tab 07/03/24 [Rx] Nystatin 100,000 Unit/gm Powd [Mycostatin Powder] 1 applic TOPICAL BID 7 Days #14 each 07/03/24 [Rx] Nystatin 100,000Unit/gm Cream [Mycostatin Cream] 1 applic TOPICAL BID each 07/03/24 [Rx] Oseltamivir [Tamiflu] 75 mg PO Q12HR 5 Days #10 cap 07/03/24 [Rx] guaiFENesin SYRUP 100MG/5ML [Robitussin] 200 mg PO Q6HR PRN ml 07/03/24 [Rx] Follow up Appointment(s)/Referral(s): Jone Gregorio MD [Primary Care Provider] - 1-2 days [facility] [NON-STAFF] - 1 Week Activity/Diet/Wound Care/Special Instructions: Patient is going to [facility] on the grants pass once insurance authorization is obtained Activity as tolerated Continue with local wound care to the folds and nystatin powder and cream per ID recommendations Continue with Keflex 3 times daily for 1 week Continue Diflucan daily for 1 week Continue Tamiflu twice daily for 5 days Follow-up at the wound care center outpatient on discharge Follow-up with primary care provider on discharge Discharge Disposition: TRANSFER TO SNF/F
[2024-07-04 09:10] LABS: HGB 11.2 g/dL (13.0-17.0); MCH 27.1 pg (27.0-32.0); MCHC 31.1 g/dL (32.0-37.0); MCV 87.2 FL (80.0-97.0); Mean Platelet Volume 10.7 FL (9.5-12.2); NRBC Per 100 WBC 0 X 10*3/uL (0.00-0.01); Platelet Count 293 X 10*3/uL (140-440); RBC 4.13 X 10*6/uL (4.40-5.60); RDW 14.7 % (11.5-14.5); WBC 12.45 X 10*3/uL (4.50-10.00)
[2024-07-04 10:55] LABS: Basophils # (M) 0 X 10*3/uL (0.00-0.10); Eosinophils # (M) 0 X 10*3/uL (0.04-0.35); Lymphocytes # (M) 2.86 X 10*3/uL (0.90-5.00); Metamyelocytes % 1 % (0-0); Monocytes # (M) 1.62 X 10*3/uL (0.20-1.00); Myelocytes % 1 % (0-0); Neutrophils # (M) 7.72 X 10*3/uL (1.80-7.70); Neutrophils % (M) 62 %; RBC Morphology Normal (Normal)
--- NOTE | 2024-07-04 14:36 | P.PN ---
Subjective Progress Note Date: 07/03/24 Principal diagnosis: Reason for follow-up is leukocytosis diarrhea extensive excoriation of the groin and thigh Patient is a 63-year-old male past medical history difficult for hypertension sleep apnea reflux patient has been brought into the hospital concerning for nausea vomiting and diarrhea patient symptoms started the day before presentation to the hospital, patient did have a extensive excoriation of the bilateral groin posterior thigh area concerning for fungal dermatitis and also have significant diarrhea with elevated white count concerning for C. difficile On today's evaluation that is 07/03/2024, the patient continues to be afebrile, the patient is on room air and breathing comfortably, the Pt denies having any chest pain has been complaining of some dry irritating cough not bringing up any sputum no nausea vomiting no abdominal pain diarrhea has slowed. Patient white count is 14.61 creat is 1.0 he tested positive for influenza A chest x-ray mild tissue prominence correlate for mild interstitial pneumonitis Objective - Vital Signs Vital signs: Vital Signs Temp 101.8 F H 07/03/24 07:10 Pulse 92 07/03/24 07:10 Resp 20 07/03/24 07:10 BP 156/84 07/03/24 07:10 Pulse Ox 95 07/03/24 07:10 FiO2 Intake & Output 07/02/24 07/03/24 07/03/24 18:59 06:59 18:59 Intake Total 740 1650 Output Total 2950 900 Balance -2210 750 Intake: Intake, IV Titration 200 Amount ceFAZolin 3 gm In Sodium 200 Chloride 0.9% 100 ml @ 200 mls/hr IVPB Q8HR [facility] Rx#:[id number] Oral 540 1650 Output: Urine 2950 900 Other: Voiding Method Urinal External Catheter Diaper External Catheter # Voids 1 # Bowel Movements 0 1 - Exam GENERAL DESCRIPTION: An elderly male lying in bed in no distress RESPIRATORY SYSTEM: Unlabored breathing , decreased breath sounds at bases HEART: S1 S2 regular rate and rhythm , ABDOMEN: Soft , no tenderness EXTREMITIES: Extensive discoloration of the bilateral groin right posterior thigh did have some superficial wound and redness - Labs CBC & Chem 7: 07/04/24 03:20 07/04/24 03:20 Labs: Abnormal Lab Results - Last 24 Hours (Table) 07/02/24 07/03/24 07/03/24 Range/Units 13:48 05:47 05:47 WBC 14.61 H (4.50-10.00) X 10*3/uL Hgb 12.0 L (13.0-17.0) g/dL Hct 38.3 L (39.6-50.0) % MCHC 31.3 L (32.0-37.0) g/dL RDW 14.6 H (11.5-14.5) % Neutrophils # (Manual) 11.98 H (1.80-7.70) X 10*3/uL Lymphocytes # (Manual) 0.44 L (0.90-5.00) X 10*3/uL Monocytes # (Manual) 1.46 H (0.20-1.00) X 10*3/uL Eosinophils # (Manual) 0 L (0.04-0.35) X 10*3/uL Basophils # (Manual) 0.15 H (0.00-0.10) X 10*3/uL BUN/Creatinine Ratio 11.80 L (12.00-20.00) Ratio Calcium 8.6 L (8.7-10.3) mg/dL AST 36 H (14-35) U/L Albumin 3.1 L (3.8-4.9) g/dL Albumin/Globulin Ratio 0.94 L (1.60-3.17) Ratio Influenza Type A (PCR) Detected A (Not Detectd) Assessment and Plan (1) Diarrhea Current Visit: Yes Status: Acute Code(s): R19.7 - DIARRHEA, UNSPECIFIED SNOMED Code(s): 74772319 (2) Cutaneous candidiasis Current Visit: Yes Status: Acute Code(s): B37.2 - CANDIDIASIS OF SKIN AND NAIL SNOMED Code(s): 99550485 (3) Leukocytosis (leucocytosis) Current Visit: Yes Status: Acute Code(s): D72.829 - ELEVATED WHITE BLOOD CELL COUNT, UNSPECIFIED SNOMED Code(s): 104067396 Plan: 1patient presented to hospital with acute nausea vomiting and diarrhea and this patient did have significant elevated white count with concern for possible infectious versus noninfectious diarrhea and concern for possible C. difficile however that has been ruled out with a negative C. difficile PCR as well as EIA 2-patient also have extensive cutaneous candidiasis to the groin fold as well as posterior thigh area 3- stool for C. difficile PCR came back negative 4-culture from the right posterior leg now coming back positive with a Proteus and strep, urine is growing Proteus 5-patient did have respiratory symptoms tested positive for influenza A Tamiflu 6-we will continue patient on cefazolin for his cellulitis UTI finishing therapy with oral Keflex discussed with [employer] for admitting team Dictation was produced using [employer] dictation software. please excuse any grammatical, word or spelling errors.
--- NOTE | 2024-07-04 14:37 | P.PN ---
Subjective Progress Note Date: 07/04/24 Principal diagnosis: Reason for follow-up is leukocytosis diarrhea extensive excoriation of the groin and thigh Patient is a 63-year-old male past medical history difficult for hypertension sleep apnea reflux patient has been brought into the hospital concerning for nausea vomiting and diarrhea patient symptoms started the day before presentation to the hospital, patient did have a extensive excoriation of the bilateral groin posterior thigh area concerning for fungal dermatitis and also have significant diarrhea with elevated white count concerning for C. difficile On today's evaluation that is 07/04/2024, patient did not have any fever and denies any chills, patient is breathing comfortably on room air, patient with no chest pain he did have a congested cough but not bring up any sputum patient did not have any abdominal pain nausea vomiting or any worsening loose stools. Patient white count is down to 12.45, creatinine 0.84 Objective - Vital Signs Vital signs: Vital Signs Temp 98.4 F 07/04/24 13:12 Pulse 76 07/04/24 13:12 Resp 20 07/04/24 13:12 BP 130/78 07/04/24 13:12 Pulse Ox 94 L 07/04/24 13:12 FiO2 Intake & Output 07/03/24 07/04/24 07/04/24 18:59 06:59 18:59 Intake Total 1680 Output Total 625 250 200 Balance -625 -250 1480 Weight 190.055 kg Intake: Oral 1680 Output: Urine 625 250 200 Other: Voiding Method Diaper Diaper External Catheter External Catheter # Voids 2 3 # Bowel Movements 2 4 - Exam GENERAL DESCRIPTION: An elderly male lying in bed in no distress RESPIRATORY SYSTEM: Unlabored breathing , decreased breath sounds at bases HEART: S1 S2 regular rate and rhythm , ABDOMEN: Soft , no tenderness EXTREMITIES: Extensive discoloration of the bilateral groin right posterior thigh did have some superficial wound and redness - Labs CBC & Chem 7: 07/04/24 03:20 07/04/24 03:20 Labs: Abnormal Lab Results - Last 24 Hours (Table) 07/04/24 07/04/24 Range/Units 03:20 03:20 WBC 12.45 H (4.50-10.00) X 10*3/uL RBC 4.13 L (4.40-5.60) X 10*6/uL Hgb 11.2 L (13.0-17.0) g/dL Hct 36.0 L (39.6-50.0) % MCHC 31.1 L (32.0-37.0) g/dL RDW 14.7 H (11.5-14.5) % Neutrophils # (Manual) 7.72 H (1.80-7.70) X 10*3/uL Monocytes # (Manual) 1.62 H (0.20-1.00) X 10*3/uL Eosinophils # (Manual) 0 L (0.04-0.35) X 10*3/uL Sodium 133 L (137-145) mmol/L Assessment and Plan (1) Diarrhea Current Visit: Yes Status: Acute Code(s): R19.7 - DIARRHEA, UNSPECIFIED SNOMED Code(s): 81492883 (2) Cutaneous candidiasis Current Visit: Yes Status: Acute Code(s): B37.2 - CANDIDIASIS OF SKIN AND NAIL SNOMED Code(s): 48647619 (3) Leukocytosis (leucocytosis) Current Visit: Yes Status: Acute Code(s): D72.829 - ELEVATED WHITE BLOOD CELL COUNT, UNSPECIFIED SNOMED Code(s): 436801845 Plan: 1patient presented to hospital with acute nausea vomiting and diarrhea and this patient did have significant elevated white count with concern for possible infectious versus noninfectious diarrhea and concern for possible C. difficile however that has been ruled out with a negative C. difficile PCR as well as EIA 2-patient also have extensive cutaneous candidiasis to the groin fold as well as posterior thigh area 3- stool for C. difficile PCR came back negative 4-culture from the right posterior leg now coming back positive with a Proteus and strep, urine is growing Proteus 5-patient did have respiratory symptoms tested positive for influenza A, to continue with the Tamiflu day number 2 out of 5 6-treat the patient with cefazolin for his cellulitis UTI however patient will be able to finish therapy with oral Keflex on discharge Dictation was produced using [employer] software. please excuse any grammatical, word or spelling errors. Time with Patient: Less than 30
[2024-07-05] MEDS: ONDANSETRON 4 MG/2 ML VIAL IVP PRN (03:21)
--- NOTE | 2024-07-05 06:57 | P.PN ---
Subjective Progress Note Date: 07/04/24 This is a 63 year-old male who was recently admitted with nausea and vomiting and diarrhea with generalized weakness being closely monitored. Patient with significant cutaneous candidiasis with concerns of cellulitis in all the inguinal folds and lower extremities and buttock area. Patient maintained on IV antibiotics along with wound care with infectious disease following and will continue on oral Keflex for 1 week and also Diflucan and nystatin for a week as well. Patient to follow-up with the wound care center on discharge. Patient was also having a cough with some low-grade fevers and bodyaches and was tested positive for influenza A. Patient is continued on Tamiflu twice daily and will continue a 5-day course on discharge. Patient with significant weakness will be going to [facility] and has been accepted at [facility]. Currently awaiting insurance authorization and patient also has [id number] co-pay expenses that him and family are agreeable to. Patient has been cleared by consultations. Please refer to consultation notes for further HPI. Currently no reports of chest pain, shortness of breath, or palpitations. Patient is afebrile. No reports of nausea or vomiting and patient is tolerating diet. Patient will be going to [facility] on the cool once insurance authorization is obtained. Review of systems: Constitutional: No reports of fatigue, fever, or chills Cardiovascular: No reports of chest pain or palpitations Respiratory: No reports of shortness of breath or cough GI: reports of nausea, no reports of of vomiting, : No reports of dysuria or retention Neurovascular: reports of generalized weakness, All medications have been reviewed Physical exam: Gen: This is a 63-year-old male who is awake, alert and oriented x 3, well- developed, elderly appearing, morbidly obese HEENT: Head is atraumatic, normocephalic. Pupils equal, round. Sclerae is anicteric. NECK: Supple. No JVD. No lymphadenopathy. No thyromegaly. LUNGS: Diminished breath sounds bilaterally with diffuse scattered rhonchi. No intercostal retractions. HEART: S1, S2 are muffled ABDOMEN: Soft. Morbidly obese bowel sounds are present. No masses. No tenderness. EXTREMITIES: No pedal edema. No calf tenderness. Edematous with extremely large body habitus NEUROLOGICAL: Patient is awake, alert and oriented x3. Cranial nerves 2 through 12 are grossly intact. Diffusely weak Assessment: Nausea, vomiting, diarrhea, likely secondary to acute influenza A Mild fever, likely secondary to influenza Severe bronchospasm, improved Acute renal failure with severe metabolic acidosis, lactic acidosis, present on admission Cutaneous candidiasis Acute cellulitis in the inguinal area, present on admission Gait dysfunction with generalized weakness GERD Morbid obesity with a BMI of 67.6 GI prophylaxis DVT prophylaxis Full code Plan: Recommend to continue with current medications and management with infectious disease following. Continue local wound care and also continue with IV cefazol in for now and will transition to oral Keflex. Continue with wound care and Diflucan along with nystatin Patient also tested positive for influenza and is maintained on Tamiflu and will complete a 5-day course Case management following and there is no insurance authorization as of yet. Given the weekend patient will likely not discharge until Saturday. Will follow- up with case management on Saturday morning regarding insurance authorization. Due to multiple complex medical issues, overall prognosis is guarded The impression and plan of care has been dictated by Jayla Cameron, Nurse Practitioner as directed. Dr. Rocael MD I have performed a history and examination and MDM of this patient, discussed the same with the dictator, and agree with the dictator's assessment and plan as written ,documented as a scribe. Based on total visit time, I have performed more than 50% of the visit. Objective - Vital Signs Vital signs: Vital Signs Temp 98 F 07/03/24 13:00 Pulse 82 07/03/24 13:00 Resp 17 07/03/24 13:00 BP 150/63 07/03/24 13:00 Pulse Ox 99 07/03/24 13:00 FiO2 Intake & Output 07/02/24 07/03/24 07/03/24 18:59 06:59 18:59 Intake Total 740 1650 Output Total 2950 900 Balance -2210 750 Weight 190.055 kg Intake: Intake, IV Titration 200 Amount ceFAZolin 3 gm In Sodium 200 Chloride 0.9% 100 ml @ 200 mls/hr IVPB Q8HR [facility] Rx#:[id number] Oral 540 1650 Output: Urine 2950 900 Other: Voiding Method Urinal External Catheter Diaper External Catheter # Voids 1 # Bowel Movements 0 1 - Labs CBC & Chem 7: 07/04/24 03:20 07/04/24 03:20 Labs: Abnormal Lab Results - Last 24 Hours (Table) 07/03/24 07/03/24 Range/Units 05:47 05:47 WBC 14.61 H (4.50-10.00) X 10*3/uL Hgb 12.0 L (13.0-17.0) g/dL Hct 38.3 L (39.6-50.0) % MCHC 31.3 L (32.0-37.0) g/dL RDW 14.6 H (11.5-14.5) % Neutrophils # (Manual) 11.98 H (1.80-7.70) X 10*3/uL Lymphocytes # (Manual) 0.44 L (0.90-5.00) X 10*3/uL Monocytes # (Manual) 1.46 H (0.20-1.00) X 10*3/uL Eosinophils # (Manual) 0 L (0.04-0.35) X 10*3/uL Basophils # (Manual) 0.15 H (0.00-0.10) X 10*3/uL BUN/Creatinine Ratio 11.80 L (12.00-20.00) Ratio Calcium 8.6 L (8.7-10.3) mg/dL AST 36 H (14-35) U/L Albumin 3.1 L (3.8-4.9) g/dL Albumin/Globulin Ratio 0.94 L (1.60-3.17) Ratio
--- NOTE | 2024-07-05 14:24 | P.PN ---
Subjective Progress Note Date: 07/05/24 This is a 63 year-old male who was recently admitted with nausea and vomiting and diarrhea with generalized weakness being closely monitored. Patient with significant cutaneous candidiasis with concerns of cellulitis in all the inguinal folds and lower extremities and buttock area. Patient maintained on IV antibiotics along with wound care with infectious disease following and will continue on oral Keflex for 1 week and also Diflucan and nystatin for a week as well. Patient to follow-up with the wound care center on discharge. Patient was also having a cough with some low-grade fevers and bodyaches and was tested positive for influenza A. Patient is continued on Tamiflu twice daily and will continue a 5-day course on discharge. Patient with significant weakness [facility] and has been accepted at [facility]. Currently awaiting insurance authorization and patient also has [id number] co-pay expenses that him and family are agreeable to. Patient has been cleared by consultations. Please refer to consultation notes for further HPI. Currently no reports of chest pain, shortness of breath, or palpitations. Patient is afebrile. No reports of nausea or vomiting and patient is tolerating diet. Patient will be going to [facility] on the [place] once insurance authorization is obtained. 07/05/2024 Patient is seen in follow-up today with no acute overnight issues noted. Genny mar has been afebrile for 24 hours now continued on IV cefazolin along with Tamiflu. Infectious disease following and will continue oral Keflex for 1 week along with continue nystatin and Diflucan. Patient to continue with local wound care and frequent offloading of those sites. Strongly encouraged increase activity as tolerated with PT/OT therapy. Plan is for patient to go to [facility] and currently awaiting insurance authorization. Will follow-up with case management regarding discharge planning on Saturday. Review of systems: Constitutional: No reports of fatigue, fever, or chills Cardiovascular: No reports of chest pain or palpitations Respiratory: No reports of shortness of breath or cough GI: reports of nausea, no reports of of vomiting, : No reports of dysuria or retention Neurovascular: reports of generalized weakness, All medications have been reviewed Physical exam: Gen: This is a 63-year-old male who is awake, alert and oriented x 3, well- developed, elderly appearing, morbidly obese HEENT: Head is atraumatic, normocephalic. Pupils equal, round. Sclerae is anict michael. NECK: Supple. No JVD. No lymphadenopathy. No thyromegaly. LUNGS: Diminished breath sounds bilaterally with diffuse scattered rhonchi. No intercostal retractions. HEART: S1, S2 are muffled ABDOMEN: Soft. Morbidly obese bowel sounds are present. No masses. No tenderness. EXTREMITIES: No pedal edema. No calf tenderness. Edematous with extremely large body habitus NEUROLOGICAL: Patient is awake, alert and oriented x3. Cranial nerves 2 through 12 are grossly intact. Diffusely weak Assessment: Nausea, vomiting, diarrhea, likely secondary to acute influenza A Mild fever, likely secondary to influenza Severe bronchospasm, improved Acute renal failure with severe metabolic acidosis, lactic acidosis, present on admission Cutaneous candidiasis Acute cellulitis in the inguinal area, present on admission Gait dysfunction with generalized weakness GERD Morbid obesity with a BMI of 67.6 GI prophylaxis DVT prophylaxis Full code Plan: Recommend to continue with current medications and management with infectious disease following. Continue local wound care and also continue with IV cefazolin for now and will transition to oral Keflex. Continue with wound care and Diflucan along with nystatin Patient also tested positive for influenza and is maintained on Tamiflu and will complete a 5-day course Case management following and there is no insurance authorization as of yet. Given the weekend patient will likely not discharge until Saturday. Will follow- up with case management on Saturday morning regarding insurance authorization. Patient does have co-pay fees and patient along with family have been agreed to pay this with [employer]. Due to multiple complex medical issues, overall prognosis is guarded. Hopeful for discharge to ECF in 24 hours The impression and plan of care has been dictated by Jayla Cameron, Nurse Practitioner as directed. Dr. Rocael MD I have performed a history and examination and MDM of this patient, discussed the same with the dictator, and agree with the dictator's assessment and plan as written ,documented as a scribe. Based on total visit time, I have performed more than 50% of the visit. Objective - Vital Signs Vital signs: Vital Signs Temp 98.8 F 07/05/24 00:37 Pulse 81 07/05/24 00:37 Resp 18 07/05/24 00:37 BP 143/95 07/05/24 00:37 Pulse Ox 94 L 07/05/24 00:37 FiO2 Intake & Output 07/04/24 07/04/24 07/05/24 06:59 18:59 06:59 Intake Total 2080 Output Total 250 200 600 Balance -250 1880 -600 Intake: Oral 2079 Output: Urine 250 200 Stool 600 Other: Voiding Method Diaper External Catheter External Catheter # Voids 2 3 # Bowel Movements 2 3 2 - Labs CBC & Chem 7: 07/04/24 03:20 07/04/24 03:20 Labs: Abnormal Lab Results - Last 24 Hours (Table) 07/04/24 Range/Units 03:20 WBC 12.45 H (4.50-10.00) X 10*3/uL RBC 4.13 L (4.40-5.60) X 10*6/uL Hgb 11.2 L (13.0-17.0) g/dL Hct 36.0 L (39.6-50.0) % MCHC 31.1 L (32.0-37.0) g/dL RDW 14.7 H (11.5-14.5) % Neutrophils # (Manual) 7.72 H (1.80-7.70) X 10*3/uL Monocytes # (Manual) 1.62 H (0.20-1.00) X 10*3/uL Eosinophils # (Manual) 0 L (0.04-0.35) X 10*3/uL
--- NOTE | 2024-07-05 14:59 | P.PN ---
Subjective Progress Note Date: 07/05/24 Principal diagnosis: Reason for follow-up is leukocytosis diarrhea extensive excoriation of the groin and thigh Patient is a 63-year-old male past medical history difficult for hypertension sleep apnea reflux patient has been brought into the hospital concerning for nausea vomiting and diarrhea patient symptoms started the day before presentation to the hospital, patient did have a extensive excoriation of the bilateral groin posterior thigh area concerning for fungal dermatitis and also have significant diarrhea with elevated white count concerning for C. difficile On today's evaluation that is 07/05/2024, Patient is afebrile patient is currently on room air and denies having any shortness of breath, the patient denies any chest pain patient did have a cough but not bringing up any sputum, the patient denies any nausea vomiting did not have any abdominal pain and mention the diarrhea has come back. No lab draw today Objective - Vital Signs Vital signs: Vital Signs Temp 98.2 F 07/05/24 13:16 Pulse 75 07/05/24 13:16 Resp 17 07/05/24 07:41 BP 148/74 07/05/24 13:16 Pulse Ox 97 07/05/24 13:16 FiO2 Intake & Output 07/04/24 07/05/24 07/05/24 18:59 06:59 18:59 Intake Total 2080 2150 Output Total 200 1000 Balance 1880 1150 Intake: Oral 2079 2149 Output: Urine 200 400 Stool 600 Other: Voiding Method External Catheter External Catheter # Voids 3 # Bowel Movements 3 5 - Exam GENERAL DESCRIPTION: An elderly male lying in bed in no distress RESPIRATORY SYSTEM: Unlabored breathing , decreased breath sounds at bases HEART: S1 S2 regular rate and rhythm , ABDOMEN: Soft , no tenderness EXTREMITIES: Extensive discoloration of the bilateral groin right posterior thigh did have some superficial wound and redness - Labs CBC & Chem 7: 07/04/24 03:20 07/04/24 03:20 Assessment and Plan (1) Diarrhea Current Visit: Yes Status: Acute Code(s): R19.7 - DIARRHEA, UNSPECIFIED SNOMED Code(s): 97458907 (2) Cutaneous candidiasis Current Visit: Yes Status: Acute Code(s): B37.2 - CANDIDIASIS OF SKIN AND NAIL SNOMED Code(s): 13838775 (3) Leukocytosis (leucocytosis) Current Visit: Yes Status: Acute Code(s): D72.829 - ELEVATED WHITE BLOOD CELL COUNT, UNSPECIFIED SNOMED Code(s): 669538015 Plan: 1patient presented to hospital with acute nausea vomiting and diarrhea and this patient did have significant elevated white count with concern for possible infectious versus noninfectious diarrhea and concern for possible C. difficile however that has been ruled out with a negative C. difficile PCR as well as EIA 2-patient also have extensive cutaneous candidiasis to the groin fold as well as posterior thigh area 3- stool for C. difficile PCR came back negative 4-culture from the right posterior leg now coming back positive with a Proteus and strep, urine is growing Proteus 5-patient did have respiratory symptoms tested positive for influenza A, to continue with the Tamiflu day number 3 out of 5 6-we will switch his cefazolin to oral Keflex hopefully that will help with the diarrhea as well Dictation was produced using [employer] dictation software. please excuse any grammatical, word or spelling errors.
[2024-07-05] MEDS: CEPHALEXIN 500 MG CAP PO SCH (16:58)
--- NOTE | 2024-07-06 23:25 | P.PN ---
Subjective Progress Note Date: 07/06/24 This is a 63 year-old male who was recently admitted with nausea and vomiting and diarrhea with generalized weakness being closely monitored. Patient with significant cutaneous candidiasis with concerns of cellulitis in all the inguinal folds and lower extremities and buttock area. Patient maintained on IV antibiotics along with wound care with infectious disease following and will continue on oral Keflex for 1 week and also Diflucan and nystatin for a week as well. Patient to follow-up with the wound care center on discharge. Patient was also having a cough with some low-grade fevers and bodyaches and was tested positive for influenza A. Patient is continued on Tamiflu twice daily and will continue a 5-day course on discharge. Patient with significant weakness will be going to [facility] and has been accepted at [facility]. Currently awaiting insurance authorization and patient also has [id number] co-pay expenses that him and family are agreeable to. Patient has been cleared by consultations. Please refer to consultation notes for further HPI. Currently no reports of chest pain, shortness of breath, or palpitations. Patient is afebrile. No reports of nausea or vomiting and patient is tolerating diet. Patient will be going to [facility] on the [place] once insurance authorization is obtained. 07/05/2024 Patient is seen in follow-up today with no acute overnight issues noted. Genny mar has been afebrile for 24 hours now continued on IV cefazolin along with Tamiflu. Infectious disease following and will continue oral Keflex for 1 week along with continue nystatin and Diflucan. Patient to continue with local wound care and frequent offloading of those sites. Strongly encouraged increase activity as tolerated with PT/OT therapy. Plan is for patient to go to [facility] and currently awaiting insurance authorization. Will follow-up with case management regarding discharge planning on Saturday. 07/06/2024 Patient is seen in follow-up today continues to await for insurance au thorization. Patient plans on going to [facility] on discharge. Patient is continued on oral Keflex and will continue for 1 week course on discharge. Patient also continued on Tamiflu for influenza A and will complete the course tomorrow. No need to continue Tamiflu on discharge. Patient is afebrile with no reported chest pain or worsening shortness of breath. Continue local wound care and will await insurance authorization. Encouraged increase activity as tolerated Review of systems: Constitutional: No reports of fatigue, fever, or chills Cardiovascular: No reports of chest pain or palpitations Respiratory: No reports of shortness of breath or cough GI: No reports of nausea, no reports of vomiting, diarrhea is improving : No reports of dysuria or retention Neurovascular: reports of generalized weakness All medications have been reviewed Physical exam: Gen: This is a 63-year-old male who is awake, alert and oriented x 3, well- developed, elderly appearing, morbidly obese HEENT: Head is atraumatic, normocephalic. Pupils equal, round. Sclerae is anicteric. NECK: Supple. No JVD. No lymphadenopathy. No thyromegaly. LUNGS: Diminished breath sounds bilaterally with diffuse scattered rhonchi. No intercostal retractions. HEART: S1, S2 are muffled ABDOMEN: Soft. Morbidly obese bowel sounds are present. No masses. No tenderness. EXTREMITIES: No pedal edema. No calf tenderness. Edematous with extremely large body habitus NEUROLOGICAL: Patient is awake, alert and oriented x3. Cranial nerves 2 through 12 are grossly intact. Diffusely weak Assessment: Nausea, vomiting, diarrhea, likely secondary to acute influenza A, improving Mild fever, likely secondary to influenza, resolved Severe bronchospasm, improved Acute renal failure with severe metabolic acidosis, lactic acidosis, present on admission Cutaneous candidiasis Acute cellulitis in the inguinal area, present on admission Gait dysfunction with generalized weakness GERD Morbid obesity with a BMI of 67.6 GI prophylaxis DVT prophylaxis Full code Plan: Recommend to continue with current medications and management with infectious disease following. Continue local wound care and also continue with oral Keflex. Continue with wound care and Diflucan along with nystatin Patient also tested positive for influenza and is maintained on Tamiflu and will complete a 5-day course after 07/07/2024. No need to continue this on discharge Case management following and there is no insurance authorization as of yet. Insurance authorization remains pending as of 07/06/2024. Patient does have co-pay fees and patient along with family have been agreed to pay this with [employer] Due to multiple complex medical issues, overall prognosis is guarded. Hopeful for discharge to [facility] in 24 to 48 hours The impression and plan of care has been dictated by Jayla Cameron, Nurse Practitioner as directed. Dr. Rocael MD I have performed a history and examination and MDM of this patient, discussed the same with the dictator, and agree with the dictator's assessment and plan as written ,documented as a scribe. Based on total visit time, I have performed more than 50% of the visit. Objective - Vital Signs Vital signs: Vital Signs Temp 98.3 F 07/06/24 19:06 Pulse 80 07/06/24 19:06 Resp 18 07/06/24 19:06 BP 147/83 07/06/24 19:06 Pulse Ox 95 07/06/24 19:06 FiO2 Intake & Output 07/06/24 07/06/24 07/07/24 06:59 18:59 06:59 Intake Total 1080 Output Total 1500 700 Balance -420 -700 Intake: Oral 1080 Output: Urine 1500 700 Other: Voiding Method External Catheter # Bowel Movements 1 - Labs CBC & Chem 7: 07/04/24 03:20 07/04/24 03:20
[2024-07-07 07:52] VITALS: BP 151/85; PULSE 72; RESP 16; TEMP 98.2
--- NOTE | 2024-07-07 13:11 | P.DS ---
Providers Date of admission: 06/26/24 06:19 Attending physician: Nicolette Cote Consults: 06/26/24 09:29 Consult Physician Urgent Consulting Provider: Danette Askew Consult Reason/Comments: multiple wounds Do you want consulting provider notified?: Yes 06/26/24 14:05 Consult Physician Routine Consulting Provider: Gal Ontiveros Consult Reason/Comments: arf Do you want consulting provider notified?: Yes Primary care physician: Jone Gregorio MD Hospital Course: Diagnoses: Nausea, vomiting, diarrhea, likely secondary to acute influenza A, improving Mild fever, likely secondary to influenza, resolved Severe bronchospasm, improved Acute renal failure with severe metabolic acidosis, lactic acidosis, present on admission Cutaneous candidiasis Acute cellulitis in the inguinal area, present on admission Gait dysfunction with generalized weakness GERD Morbid obesity with a BMI of 67.6 Microscopic blood in stool with positive occult blood. No overt bleeding. No drop in hemoglobin. Patient will benefit from evaluation with GI service as an outpatient, discharge instruction with Dr. Herron in 3 to 4 weeks, patient informed and he agrees. Risk of cancer explained and he verbalized understandin g and acceptance Hospital course: This is a pleasant 63 years old male who presents with acute gastroenteritis and skin candidiasis. He has evidence of nausea vomiting which is improved now. Patient was found to have acute influenza infection, patient has been evaluated by infectious disease team. He was treated with Tamiflu and he finished 9/10 of doses, his last dose will be tonight for a total of 5 days Also patient currently continued with Keflex antibiotics and Diflucan for his skin infection and for his cellulitis. Today patient has some occasional coughing but denies dyspnea or chest pain. No specific GI/ symptom. No headache dizziness weakness. He feels generally weak but no unilateralization. Patient was cleared for discharge by infectious disease team Patient will be discharged on short course of oral antibiotic Problems and management plan were discussed with the patient and he verbalized understanding and acceptance Patient was found stable and can be discharged home in guarded prognosis however he needs follow-up as an outpatient. Patient was instructed to follow up with PCP within one week and patient agrees With recommend patient follow-up with ID team in 2 to 3 weeks after discharge as needed Physical exam Gen: patient is a AAOx3, no distress CVS: S1-S2, RRR, no murmur Lungs: B/L CTA, no wheezing Abdomen: soft, no distention, no tenderness, positive bowel sounds Extremity: no leg edema or induration Time spent more than 35 minutes Patient Condition at Discharge: Fair Plan - Discharge Summary Discharge Rx Participant: Yes New Discharge Prescriptions: New Loperamide [Imodium] 2 mg PO QID PRN cap PRN Reason: Diarrhea Nystatin 100,000Unit/gm Cream [Mycostatin Cream] 1 applic TOPICAL BID each Nystatin 100,000 Unit/gm Powd [Mycostatin Powder] 1 applic TOPICAL BID 7 Days #14 each Cholestyramine (with Sugar) [Questran Packet] 4 gm PO BID@1000,1800 packet Fluconazole [Diflucan] 150 mg PO DAILY 3 Days #3 tab Heparin Sodium,Porcine (1 ml) [Heparin Sodium] 5,000 unit SQ Q12HR each Cephalexin [Keflex] 500 mg PO Q8HR 7 Days #21 cap Metoprolol Tartrate [Lopressor] 25 mg PO BID tab Melatonin 6 mg PO HS tab Multivitamins, Thera [Multivitamin (formulary)] 1 each PO DAILY@1200 tab HYDROcodone/APAP 5-325MG [Century 5-325] 1 each PO Q6HR PRN #4 tab PRN Reason: Pain guaiFENesin SYRUP 100MG/5ML [Robitussin] 200 mg PO Q6HR PRN ml PRN Reason: Cough Acetaminophen Tab [Tylenol] 650 mg PO Q6HR PRN tab PRN Reason: Fever And/ Or Pain Oseltamivir [Tamiflu] 75 mg PO Q12HR 1 Days #1 cap Continue Aspirin [Adult Low Dose Aspirin EC] 81 mg PO DAILY lisinopriL [Zestril] 20 mg PO DAILY Prochlorperazine [Compazine] 5 mg PO TID PRN PRN Reason: Nausea Polymyxin B-Trimeth Sulf Ophth [Polytrim Opthalmic] 1 drop BOTH EYES Q6H Pantoprazole Sodium [Protonix] 40 mg PO DAILY Atorvastatin [Lipitor] 40 mg PO DAILY Discharge Medication List Aspirin [Adult Low Dose Aspirin EC] 81 mg PO DAILY 09/13/17 [History] Atorvastatin [Lipitor] 40 mg PO DAILY 06/26/24 [History] Pantoprazole Sodium [Protonix] 40 mg PO DAILY 06/26/24 [History] Polymyxin B-Trimeth Sulf Ophth [Polytrim Opthalmic] 1 drop BOTH EYES Q6H 06/26/24 [History] Prochlorperazine [Compazine] 5 mg PO TID PRN 06/26/24 [History] lisinopriL [Zestril] 20 mg PO DAILY 06/26/24 [History] Acetaminophen Tab [Tylenol] 650 mg PO Q6HR PRN tab 07/03/24 [Rx] Cephalexin [Keflex] 500 mg PO Q8HR 7 Days #21 cap 07/03/24 [Rx] Cholestyramine (with Sugar) [Questran Packet] 4 gm PO BID@1000,1800 packet 07/03/24 [Rx] Fluconazole [Diflucan] 150 mg PO DAILY 3 Days #3 tab 07/03/24 [Rx] HYDROcodone/APAP 5-325MG [Century 5-325] 1 each PO Q6HR PRN #4 tab 07/03/24 [Rx] Heparin Sodium,Porcine (1 ml) [Heparin Sodium] 5,000 unit SQ Q12HR each 07/03/24 [Rx] Loperamide [Imodium] 2 mg PO QID PRN cap 07/03/24 [Rx] Melatonin 6 mg PO HS tab 07/03/24 [Rx] Metoprolol Tartrate [Lopressor] 25 mg PO BID tab 07/03/24 [Rx] Multivitamins, Thera [Multivitamin (formulary)] 1 each PO DAILY@1200 tab 07/03 [Rx] Nystatin 100,000 Unit/gm Powd [Mycostatin Powder] 1 applic TOPICAL BID 7 Days #14 each 07/03/24 [Rx] Nystatin 100,000Unit/gm Cream [Mycostatin Cream] 1 applic TOPICAL BID each 07/03/24 [Rx] guaiFENesin SYRUP 100MG/5ML [Robitussin] 200 mg PO Q6HR PRN ml 07/03/24 [Rx] Oseltamivir [Tamiflu] 75 mg PO Q12HR 1 Days #1 cap 07/07/24 [Rx] Follow up Appointment(s)/Referral(s): Jone Gregorio MD [Primary Care Provider] - 1-2 days ([facility] please call for follow-up appointment.) [facility] [NON-STAFF] - 1 Week Danette Askew MD [STAFF PHYSICIAN] - 1 Week Radhika Fernandes MD [STAFF PHYSICIAN] - 3 Weeks (GI doctor, we recommend evaluation for colonoscopy as outpt) Activity/Diet/Wound Care/Special Instructions: Patient is going to [facility] on the [place] once insurance authorization is obtained Activity as tolerated Continue with local wound care to the folds and nystatin powder and cream per ID recommendations Continue with Keflex 3 times daily for 1 week Continue Diflucan daily for 1 week Continue Tamiflu twice daily for 5 days Follow-up at the wound care center outpatient on discharge Follow-up with primary care provider on discharge Discharge Disposition: TRANSFER TO SNF/ECF
--- NOTE | 2024-07-07 15:35 | P.PN ---
Subjective Progress Note Date: 07/06/24 Principal diagnosis: Reason for follow-up is leukocytosis diarrhea extensive excoriation of the groin and thigh Patient is a 63-year-old male past medical history difficult for hypertension sleep apnea reflux patient has been brought into the hospital concerning for nausea vomiting and diarrhea patient symptoms started the day before presentation to the hospital, patient did have a extensive excoriation of the bilateral groin posterior thigh area concerning for fungal dermatitis and also have significant diarrhea with elevated white count concerning for C. difficile On today's evaluation that is 07/06/2024, patient has been afebrile, patient is breathing comfortably and is currently on room air, patient denies having any chest pain he did have a cough will not bring up any sputum, patient denies nausea vomiting, diarrhea has slowed down and no abdominal pain. No new labs has been obtained today Objective - Vital Signs Vital signs: Vital Signs Temp 98.0 F 07/06/24 07:21 Pulse 70 07/06/24 08:00 Resp 15 07/06/24 08:00 BP 135/84 07/06/24 07:21 Pulse Ox 94 L 07/06/24 07:21 FiO2 Intake & Output 07/05/24 07/06/24 07/06/24 18:59 06:59 18:59 Intake Total 540 1080 Output Total 1750 1500 Balance -1210 -420 Intake: Oral 540 1080 Output: Urine 1750 1500 Other: Voiding Method External Catheter External Catheter # Bowel Movements 1 - Exam GENERAL DESCRIPTION: An elderly male lying in bed in no distress RESPIRATORY SYSTEM: Unlabored breathing , decreased breath sounds at bases HEART: S1 S2 regular rate and rhythm , ABDOMEN: Soft , no tenderness EXTREMITIES: Extensive discoloration of the bilateral groin right posterior thigh did have some superficial wound and redness - Labs CBC & Chem 7: 07/04/24 03:20 07/04/24 03:20 Assessment and Plan (1) Diarrhea Status: Acute Code(s): R19.7 - DIARRHEA, UNSPECIFIED SNOMED Code(s): 82901638 (2) Cutaneous candidiasis Status: Acute Code(s): B37.2 - CANDIDIASIS OF SKIN AND NAIL SNOMED Code(s): 52179358 (3) Leukocytosis (leucocytosis) Status: Acute Code(s): D72.829 - ELEVATED WHITE BLOOD CELL COUNT, UNSPECIFIED SNOMED Code(s): 760689351 Plan: 1patient presented to hospital with acute nausea vomiting and diarrhea and this patient did have significant elevated white count with concern for possible infectious versus noninfectious diarrhea and concern for possible C. difficile however that has been ruled out with a negative C. difficile PCR as well as EIA 2-patient also have extensive cutaneous candidiasis to the groin fold as well as posterior thigh area 3- culture from the right posterior leg now coming back positive with a Proteus and strep, urine is growing Proteus 4-patient did have respiratory symptoms tested positive for influenza A, to continue with the Tamiflu day number 4 out of 5 6-we will continue with oral Keflex for his cellulitis and UTI Dictation was produced using expressor software dictation software. please excuse any grammatical, word or spelling errors. Time with Patient: Less than 30
--- NOTE | 2024-07-07 15:36 | P.PN ---
Subjective Progress Note Date: 07/07/24 Principal diagnosis: Reason for follow-up is leukocytosis diarrhea extensive excoriation of the groin and thigh Patient is a 63-year-old male past medical history difficult for hypertension sleep apnea reflux patient has been brought into the hospital concerning for nausea vomiting and diarrhea patient symptoms started the day before presentation to the hospital, patient did have a extensive excoriation of the bilateral groin posterior thigh area concerning for fungal dermatitis and also have significant diarrhea with elevated white count concerning for C. difficile On today's evaluation that is 07/07/2024, Patient is afebrile this morning patient denies having any chest pain shortness of breath, did have a cough that decreased in intensity, the patient is currently on room air, patient denies any abdominal pain no nausea no vomiting and did have resolution of diarrhea No new labs has been repeated today Objective - Vital Signs Vital signs: Vital Signs Temp 98.2 F 07/07/24 07:06 Pulse 72 07/07/24 07:06 Resp 16 07/07/24 07:06 BP 151/85 07/07/24 07:06 Pulse Ox 97 07/07/24 07:06 FiO2 Intake & Output 07/06/24 07/07/24 07/07/24 18:59 06:59 18:59 Output Total 700 500 500 Balance -700 -500 -500 Output: Urine 700 500 500 Other: Voiding Method External Catheter External Catheter Diaper External Catheter # Voids 1 # Bowel Movements 1 1 - Exam GENERAL DESCRIPTION: An elderly male lying in bed in no distress RESPIRATORY SYSTEM: Unlabored breathing , decreased breath sounds at bases HEART: S1 S2 regular rate and rhythm , ABDOMEN: Soft , no tenderness EXTREMITIES: Extensive discoloration of the bilateral groin right posterior thigh did have some superficial wound and redness - Labs CBC & Chem 7: 07/04/24 03:20 07/04/24 03:20 Assessment and Plan (1) Diarrhea Status: Acute Code(s): R19.7 - DIARRHEA, UNSPECIFIED SNOMED Code(s): 73368692 (2) Cutaneous candidiasis Status: Acute Code(s): B37.2 - CANDIDIASIS OF SKIN AND NAIL SNOMED Code(s): 49279009 (3) Leukocytosis (leucocytosis) Status: Acute Code(s): D72.829 - ELEVATED WHITE BLOOD CELL COUNT, UNSPECIFIED SNOMED Code(s): 825297756 Plan: 1patient presented to hospital with acute nausea vomiting and diarrhea and this patient did have significant elevated white count with concern for possible infectious versus noninfectious diarrhea and concern for possible C. difficile however that has been ruled out with a negative C. difficile PCR as well as EIA 2-patient also have extensive cutaneous candidiasis to the groin fold as well as posterior thigh area 3- culture from the right posterior leg now coming back positive with a Proteus and strep, urine is growing Proteus 4-patient did have respiratory symptoms tested positive for influenza A, to continue with the Tamiflu day number 5 out of 5 6-we will recommend a 7-day course of oral Keflex on discharge Dictation was produced using [employer] dictation software. please excuse any grammatical, word or spelling errors. Time with Patient: Less than 30
--- NOTE | 2024-07-17 12:08 | CDI ---
Documentation Clarification Form Date: 07/15/2024 11:52:00 AM From: Vaishali Luis RN, CCDS Email: [email or web address] Admit Date: 06/26/2024 06:19:00 AM Patient Name: Bryan Ferrell Visit Number: [id number] Discharge Date: 07/07/2024 02:57:00 PM ATTENTION: The Clinical Documentation Specialists (CDI) and [facility] Coding Staff appreciate your assistance in clarifying documentation. Please respond to the clarification below the line at the bottom and electronically sign. The CDI & [facility] Coding staff will review the response and follow-up if needed. Please note: Queries are made part of the Legal Health Record. If you have any questions, please contact the author of this message via ITS. Doctor Nicolette Cote The patient had tachycardia, leukocytosis and positive influenza A. Based on this information and the findings below, is there an additional diagnosis that is clinically appropriate for this patient? History/Risk Factors: GERD, HTN, morbid obesity and sleep apnea. Presented with nausea, vomiting and diarrhea. Admitted with influenza A and acute renal failure. Clinical Indicators: ED: "Upon arrival patient is having diffuse watery diarrhea and projectile vomitus. He is hypotensive and mildly tachycardic. Labs were obtained. Patient has profound leukocytosis with a white count in the 20s as well as a lactic of 12.0." H&P: "Nausea and diarrhea, possibly antibiotic associated diarrhea or sepsis. Acute renal failure with severe metabolic acidosis and lactic acidosis. Elevated white blood cells." 06/27-06/28 IM: "Intractable nausea, vomiting/diarrhea; possibly antibiotic associated versus colitis versus sepsis." Discharge summary: "Nausea, vomiting, diarrhea, likely secondary to acute influenza A, improving." Labs 06/25-07/04 WBC 28.8-27.1-14.6-12.45; Neutrophils 25.2-23.4-9.9-11.8; Cr 2.64-0.84; Influenza A detected; +UCX; 06/25-06/26 Lactic acid: 12.0-2.0 06/25 Vital signs: HR 105 RR 24 BP 84/45 Treatment: Tamiflu 75mg po Q12H 07/03-12/31 12/20 ID Consult: "patient presented with acute nausea vomiting and diarrhea. This patient did have significant elevated white count with concern for possible infectious versus noninfectious diarrhea and concern for possible C. difficile. Patient also had extensive cutaneous candidiasis to the groin fold as well as posterior thigh area. Culture from the right posterior leg now coming back positive with a Proteus and strep, urine is growing Proteus. Patient did have respiratory symptoms, tested positive for influenza A, to continue with the Tamiflu day number 5 out of 5 and we will recommend a 7-day course of oral Keflex on discharge." Antibiotics: IV Cefazolin 3gm Q8H 06/28-07/05; Keflex 500mg po TID 07/05-07/07; Vancomycin 125mg po QID 06/26-06/27 IV Bolus: 1L 0.9 NS IV bolus x1 on 06/25; 2L x1 on 06/26 Is there an additional diagnosis that is clinically appropriate for this patient? [ x] Viral Sepsis, present on admission [ ] Sepsis, present on admission [ ] Severe Sepsis with organ failure [ ] Sepsis ruled out [ ] Other, please specify [ ] Unable to determine SIRS Criteria: 2 or more of the following may indicate SIRS Temperature < 96.8F (36C) or > 101.0F (38.3C) Heart Rate > 90 bpm Respiratory Rate > 20 breaths/min or PaCO2 < 32 mmHg White Blood Cell Count > 12,000 or < 4,000 cells/mm3 or > 10% bands MTDD
== END 2024-07-07 14:57 | DRG 871 ==
LOC: EC 23:06 → 6NMEDSUR 06-26 06:19 → 5NMEDONC 06-26 08:13 → 4SSUR 07-02 17:13
PROVIDERS: ADMIT Hospitalist; ATTEND Hospitalist
DX: A41.89 Other specified sepsis (principal); N17.0 Acute kidney failure with tubular necrosis; E87.20 Acidosis, unspecified; Z68.44 Body mass index [BMI] 60.0-69.9, adult; B37.2 Candidiasis of skin and nail; I13.10 Hypertensive heart and chronic kidney disease without heart failure, with stage 1 through stage 4 chronic kidney disease, or unspecified chronic kidney disease; N18.30 Chronic kidney disease, stage 3 unspecified; L03.314 Cellulitis of groin; N39.0 Urinary tract infection, site not specified; J10.2 Influenza due to other identified influenza virus with gastrointestinal manifestations; E86.0 Dehydration; K52.9 Noninfective gastroenteritis and colitis, unspecified; E66.01 Morbid (severe) obesity due to excess calories; E78.5 Hyperlipidemia, unspecified; G47.33 Obstructive sleep apnea (adult) (pediatric); K21.9 Gastro-esophageal reflux disease without esophagitis; R26.9 Unspecified abnormalities of gait and mobility; J10.1 Influenza due to other identified influenza virus with other respiratory manifestations; K42.9 Umbilical hernia without obstruction or gangrene; J98.01 Acute bronchospasm; E86.1 Hypovolemia; B96.4 Proteus (mirabilis) (morganii) as the cause of diseases classified elsewhere; B95.5 Unspecified streptococcus as the cause of diseases classified elsewhere; Z79.82 Long term (current) use of aspirin; Z79.899 Other long term (current) drug therapy
CPT/HCPCS: 36415; 71045; 74176; 80048; 80053; 81003; 82272; 83605; 83690; 83735; 83880; 85025; 87040; 87045; 87046; 87070; 87077; 87086; 87186; 87205; 87324; 87328; 87329; 87493; 87636; 93005; 93308; 96361; 96374; 96375; 99285

== ENCOUNTER 2024-09-16 08:01 | Day surgery (SDC) | payer MEDICARE ==
[2024-09-16 09:32] VITALS: TEMP 98.7
[2024-09-16] MEDS: NA PHOS,M-B/NA PHOS,DI-BA 133 ML ENEMA RECTAL ONE (09:56)
[2024-09-16] MEDS: IV FLUID CONTINUATION 1,000 ML IV ONE (10:00)
[2024-09-16] MEDS: LACTATED RINGERS 1,000 ML BAG IV STA (10:19)
[2024-09-16] MEDS ORDERED: MIDAZOLAM 2 MG/2 ML VIAL ONE (10:46)
[2024-09-16] MEDS ORDERED: LIDOCAINE 1% INJ 10MG/ML (20 ML MDV) ONE (10:46)
[2024-09-16] MEDS ORDERED: PROPOFOL 10 MG/ML 20 ML VIAL IV ONE (10:46)
[2024-09-16] MEDS ORDERED: KETAMINE HCL IN 0.9 % NACL 50 MG/5 ML SYRINGE ONE (10:46)
--- NOTE | 2024-09-16 11:01 | P.PCN ---
Date of Procedure: 09/16/24 Procedure(s) Performed: Brief history: Patient is a pleasant 64-year-old white male scheduled for an elective upper endoscopy as well as colonoscopy as a part of evaluation of abdominal pain, nausea vomiting diarrhea for the last 2 months duration. Procedure performed: Esophagogastroduodenoscopy with biopsy Attempted colonoscopy Preoperative diagnosis: Abdominal pain, nausea vomiting Chronic diarrhea Anesthesia: MAC Procedure: After informed consent was obtained from the patient was brought into the endoscopy unit and IV sedation was administered by anesthesia under continuous monitoring. Initially upper endoscopy was done. The Olympus GF 160 video endoscope was inserted inserted into the mouth and esophagus intubated without any difficulty and was gradually advanced into the stomach and duodenum and carefully examined. The bulb and second part of the duodenum appeared normal. These were done from the duodenum rule out celiac disease. The scope was then withdrawn into the stomach adequately insufflated with air and upon careful examination the antrum and mild gastritis and biopsies were done from this area. Mucosa of the body, cardia and fundus appeared normal. The scope was then withdrawn into the esophagus. The GE junction was located at 40 cm to the incisors. It appeared regular with no erythema erosions or ulcerations. Rest of the esophagus appeared normal. Patient tolerated the procedure well. At this time the patient continued to remain sedation. Initial digital rectal examination was normal. Olympus CF 160 video colonoscope was then inserted into the rectum and gradually advanced to the proximal rectum and there was solid stool noted. Procedure was terminated. Patient tolerated the procedure well. Impression: 1. Upper endoscopy revealed mild antral gastritis but no evidence of esophagitis or peptic ulcer disease 2. Attempted colonoscopy but the procedure was aborted because of extremely poor prep and solid stool in the rectum. Recommendations: Findings of this examination were discussed with the patient as well as his family. He was advised to follow-up with the biopsy results. Recommended repeat colonoscopy with a 2-day prep in the next 1 to 2 months. In the meantime recommend to stop Imodium and Questran as most likely patient is having spurious diarrhea.
[2024-09-16 11:37] VITALS: RESP 16
[2024-09-16 11:40] VITALS: BP 117/68; PULSE 102
== END 2024-09-16 12:22 ==
LOC: ORWHC2ENDO 08:01
PROVIDERS: ATTEND Internal Medicine Gastroenterology
DX: K29.50 Unspecified chronic gastritis without bleeding (principal); K21.9 Gastro-esophageal reflux disease without esophagitis; K52.9 Noninfective gastroenteritis and colitis, unspecified; I10 Essential (primary) hypertension; G47.33 Obstructive sleep apnea (adult) (pediatric); N28.9 Disorder of kidney and ureter, unspecified; E66.01 Morbid (severe) obesity due to excess calories; Z99.89 Dependence on other enabling machines and devices; Z79.899 Other long term (current) drug therapy; Z68.43 Body mass index [BMI] 50.0-59.9, adult
CPT/HCPCS: 88305; 88342; 45378; 43239; J2250; J2003; J2704

== ENCOUNTER 2024-10-30 08:41 | Day surgery (SDC) | payer MEDICARE ==
[2024-10-27 13:55] VITALS: BMI 58.1
[2024-10-30] MEDS: LACTATED RINGERS 1,000 ML IV SCH (09:30)
[2024-10-30] MEDS: IV FLUID CONTINUATION 1,000 ML IV ONE ×2 (09:31→10:22)
[2024-10-30 09:32] VITALS: TEMP 97.6
[2024-10-30 09:41] LABS: Glucose,Whole Blood 95 mg/dL (70-110)
[2024-10-30] MEDS ORDERED: PROPOFOL 10 MG/ML 20 ML VIAL IV ONE (10:25)
[2024-10-30 11:09] VITALS: RESP 17
[2024-10-30 11:28] VITALS: BP 120/70; PULSE 78
--- NOTE | 2024-11-02 05:25 | PCN ---
PROCEDURE NOTE REQUESTING PHYSICIAN: Dr. Jone Osman. BRIEF HISTORY: The patient is a 64-year-old white male, scheduled for an elective colonoscopy as a part of evaluation of change in bowel habits for the last several months' duration. He has been having chronic constipation with intermittent diarrhea associated with rectal bleeding. PROCEDURE PERFORMED: Colonoscopy with biopsy. PREOPERATIVE DIAGNOSIS: Change in bowel habits and intermittent rectal bleeding. ANESTHESIA: IV sedation per Anesthesia. DESCRIPTION OF PROCEDURE: After informed consent was obtained from the patient, he was brought to the endoscopy. IV conscious sedation was administered by Anesthesia and continuous monitoring. Initial digital rectal examination was normal. The Olympus CF-180 video colonoscope was done inside rectum, gradually advanced to the cecum. I was not able to advance the scope into the base of the cecum, but the ileocecal valve was visualized. The prep was extremely poor throughout the entire colon. Thorough irrigation was performed. The visualized portions of the cecum, ascending colon, transverse colon, descending colon, and sigmoid colon appeared normal. There were scattered sigmoid diverticulosis seen. In the distal rectum, there were multiple superficial erosions, and one large ulceration measuring about 2 to 3 cm in size, possibly stercoral ulcer, status post multiple biopsies. The patient tolerated the procedure well. IMPRESSION: 1. Multiple superficial erosions and 2 to 3 cm superficial distal rectal ulcer consistent with solitary rectal ulcer syndrome, status post multiple biopsies. 2. Poor prep throughout the entire colon. 3. Scattered sigmoid diverticulosis. RECOMMENDATIONS: Findings of the examination were discussed with the patient as well as the family. He was advised to follow up with the biopsy results. Continue with osmotic laxatives and follow up in office in 2 weeks.. MMODL / JUANN: [id number] /
== END 2024-10-30 11:55 | disposition home or self-care (01) ==
LOC: ORWHC2ENDO 08:41
PROVIDERS: ATTEND Internal Medicine Gastroenterology
DX: K62.1 Rectal polyp (principal); K57.30 Diverticulosis of large intestine without perforation or abscess without bleeding; K21.9 Gastro-esophageal reflux disease without esophagitis; E78.5 Hyperlipidemia, unspecified; E66.01 Morbid (severe) obesity due to excess calories; I10 Essential (primary) hypertension; G47.33 Obstructive sleep apnea (adult) (pediatric); N28.9 Disorder of kidney and ureter, unspecified; Z68.43 Body mass index [BMI] 50.0-59.9, adult; Z79.82 Long term (current) use of aspirin; Z79.02 Long term (current) use of antithrombotics/antiplatelets; Z79.899 Other long term (current) drug therapy
CPT/HCPCS: 45380; J2704; 88305